=== PATIENT | female | born 1965 | race Caucasian/White ===

== ENCOUNTER 2019-06-27 10:24 | Observation (INO) ==
[2019-06-27] MEDS ORDERED: ADENOSINE IV SOLN 3 MG/ML 2 ML VIAL IV ONE (10:45)
[2019-06-27] MEDS ORDERED: SODIUM CHLORIDE 0.9% 500 ML IV SCH (10:45)
[2019-06-27 10:55] LABS: Basophils # (auto) 0.05 K/uL (0-0.2); Basophils % (auto) 0.4 %; Eosinophils # (auto) 0.48 K/uL (0-0.5); Eosinophils % (auto) 4.1 %; Hematocrit (blood only) 44.2 % (37-47); Hemoglobin 14.7 g/dL (12.0-16.0); Immature Granulocytes # (auto) 0.03 K/uL (0.00-0.02); Immature Granulocytes % (auto) 0.3 %; Lymphocytes # (auto) 3.71 K/uL (1.2-3.4); Lymphocytes % (auto) 31.9 %; Mean Corpuscular Hemoglobin 27.2 pg (25-34); Mean Corpuscular Hgb Conc 33.3 g/dL (32-36); Mean Corpuscular Volume 81.9 fL (80-100); Mean Platelet Volume 10.3 fL (7.4-10.4); Monocytes # (auto) 0.85 K/uL (0.11-0.59); Monocytes % (auto) 7.3 %; Platelet Count 322 K/uL (130-400); RDW Coefficient of Variation 15.7 % (11.5-14.5); RDW Standard Deviation 46.5 fL (36.4-46.3); White Blood Count 11.62 K/uL (4.8-10.8)
[2019-06-27] MEDS ORDERED: ADENOSINE IV SOLN 3 MG/ML 2 ML VIAL IV STA (10:56)
[2019-06-27] MEDS ORDERED: SODIUM CHLORIDE 0.9% 1000ML 1,000 ML IV ONE (11:04)
[2019-06-27 11:14] LABS: Alanine Aminotransferase 28 U/L (12-78); Albumin Level 3.9 gm/dl (3.4-5.0); Aspartate Aminotransferase 15 U/L (15-37); BUN Creatinine Ratio 11.4 (10-20); Blood Urea Nitrogen 11 mg/dl (7-18); Calcium 9.1 mg/dl (8.5-10.1); Carbon Dioxide 27 mmol/L (21-32); Chloride 105 mmol/L (98-107); Creatinine Clr Calc Pharmacy 74.3 ml/min; Est GFR (African American) 75.9; Est GFR (Non-African American) 65.5; Glucose 102 mg/dl (70-99); Potassium 3.6 mmol/L (3.5-5.1); Sodium 139 mmol/L (136-145)
--- NOTE | 2019-06-27 11:18 | XRay Report ---
XR chest 1V portable CLINICAL HISTORY: Atypical chest pain and tachycardia. Sweats. COMPARISON STUDY: August 2006 FINDINGS: The cardiac and mediastinal contours are normal. There is no evidence of focal pulmonary co nsolidation. There is no evidence of failure. No pleural effusions are visualized.[ IMPRESSION: No active disease in the chest. ACT 112: Negative or not required by law. Electronically signed by: Julián Del Rosario M.D. 06/27/2019 11:17 AM
[2019-06-27 11:19] LABS: Alkaline Phosphatase 92 U/L (45-117); Bilirubin,Total 0.4 mg/dl (0.2-1); Phosphorus 3.1 mg/dl (2.5-4.9); Total Protein 7.9 gm/dl (6.4-8.2); Troponin I < 0.015 ng/ml (0-0.045)
[2019-06-27] MEDS ORDERED: ACETAMINOPHEN 325 MG TAB PO STA (12:52)
--- NOTE | 2019-06-27 12:58 | Emergency Department Note ---
Entered by Miroslava Bernstein acting as a scribe for History of Present Illness General Chief complaint: Chest Pain Stated complaint: CHEST PAIN, LEFT ARM PAIN, SOB Time Seen by Provider: 06/27/19 10:39 Source: patient History of Present Illness Onset (ago): week(s) (a few weeks ago) Location: chest Pain Consistency: + intermittent Maximum Pain Intensity: 5 Quality: + other (squeezing, fluttering) Relieved By: + none Exacerbated By: + movement (exertion) Associated symptoms: + denies other symptoms (infectious symptoms, abdominal pain, leg swelling), + nausea/vomiting (nausea), + shortness of breath and + other (feeling flushed); no fever/chills The patient is a 53 year old female w/ no PMHx who presents to the ED w/ CC of intermittent chest pain starting a few weeks ago. The patient states that over the last few weeks she has been having these intermittent episodes of chest pain that start out as a squeezing and turn into a fluttering. She states that they last 15-20 minutes and then would go away on their own. She notes that during these times when she has checked her heart rate, it was 140-155. The patient states that today she woke up with it this morning and it would not go away. She states that she noticed with it she was short of breath. She reports that it got worse with walking. The patient complains of nausea and feeling flushed. The patient notes that she is a smoker and does drink coffee, but didnt have either this morning due to how she is feeling. The patient denies recent surgeries, fever, chills, use of supplements, infectious symptoms, abdominal pain, and leg swelling. Home Medications Home Medications Medication Instructions Recorded Confirmed Type No Known Home Medications 06/27/19 06/27/19 History Allergies Allergy/AdvReac Type Severity Reaction Status Date / Time No Known Allergies Allergy Unverified 06/27/19 11:57 Past Med/Surg History Medical History No known health problems Family History Other CHF (congestive heart failure) Social History Preferred Language: Togolese marital status: Current Living Situation: Spouse current occupational status: unemployed Feels Safe at Home: Yes Smoking Status: Current every day smoker Hx Substance Use: No Review of Systems See HPI for pertinent positives & negatives. and A total of 10 systems reviewed and were otherwise negative Physical Exam Vital Signs Vital Signs - 24 hr 06/27/19 10:36 06/27/19 10:50 06/27/19 11:00 Temperature 36.9 C Temperature Source Oral Pulse Rate 187 H 190 H 114 H Pulse Rate from SpO2 Sensor 189 H 115 H Respiratory Rate 20 22 22 Respiratory Effort / Characteristics Non-Labored Respiratory Depth Normal Blood Pressure 114/93 118/84 Blood Pressure Mean 100 99 Blood Pressure Position Sitting Pulse Oximetry 97 97 97 Oxygen Delivery Method Room Air Oxygen Flow Rate Sepsis Recent Fever Within 48 Hours No Sepsis New/Unexplained Change in Mental Status No Sepsis Action Taken by Nursing No Action Required 06/27/19 11:01 06/27/19 11:09 06/27/19 11:10 Temperature Temperature Source Pulse Rate 114 H 116 H 113 H Pulse Rate from SpO2 Sensor 116 H 115 H 105 H Respiratory Rate 24 15 19 Respiratory Effort / Characteristics Respiratory Depth Blood Pressure 111/75 Blood Pressure Mean 98 Blood Pressure Position Pulse Oximetry 97 97 98 Oxygen Delivery Method Oxygen Flow Rate Sepsis Recent Fever Within 48 Hours Sepsis New/Unexplained Change in Mental Status Sepsis Action Taken by Nursing 06/27/19 11:20 06/27/19 11:24 06/27/19 11:30 Temperature Temperature Source Pulse Rate 118 H 107 H Pulse Rate from SpO2 Sensor 120 H 108 H Respiratory Rate 21 17 Respiratory Effort / Characteristics Respiratory Depth Blood Pressure 124/94 Blood Pressure Mean 99 Blood Pressure Position Pulse Oximetry 100 99 98 Oxygen Delivery Method Room Air Oxygen Flow Rate 0 Sepsis Recent Fever Within 48 Hours Sepsis New/Unexplained Change in Mental Status Sepsis Action Taken by Nursing 06/27/19 11:31 06/27/19 11:40 06/27/19 11:50 Temperature Temperature Source Pulse Rate 109 H 110 H 105 H Pulse Rate from SpO2 Sensor 109 H 111 H 105 H Respiratory Rate 23 25 H 17 Respiratory Effort / Characteristics Respiratory Depth Blood Pressure Blood Pressure Mean Blood Pressure Position Pulse Oximetry 98 100 99 Oxygen Delivery Method Oxygen Flow Rate Sepsis Recent Fever Within 48 Hours Sepsis New/Unexplained Change in Mental Status Sepsis Action Taken by Nursing 06/27/19 12:00 06/27/19 12:01 06/27/19 12:10 Temperature Temperature Source Pulse Rate 106 H 104 H 103 H Pulse Rate from SpO2 Sensor 106 H 104 H 103 H Respiratory Rate 22 18 22 Respiratory Effort / Characteristics Respiratory Depth Blood Pressure 113/81 Blood Pressure Mean 97 Blood Pressure Position Pulse Oximetry 98 98 98 Oxygen Delivery Method Oxygen Flow Rate Sepsis Recent Fever Within 48 Hours Sepsis New/Unexplained Change in Mental Status Sepsis Action Taken by Nursing GENERAL: Well nourished, uncomfortable in appearance, non-toxic. EYE EXAM: Normal conjunctiva. PERRL, no anisocoria and EOM's grossly intact w/o pain. OROPHARYNX: Moist mucous membranes. Grossly normal dentition. NECK: Supple, no nuchal rigidity, no adenopathy, non-tender. No signs of meningismus. LUNGS: Clear to auscultation. Normal chest wall mechanics. HEART: Tachycardic and regular, no MRG. ABDOMEN: Abdomen soft, non-tender, normo-active bowel sounds, no masses, no rebound or guarding. BACK: No CVA TTP. SKIN: No rashes and no bruising. UPPER EXTREMITIES: Upper extremities are grossly normal. LOWER EXTREMITIES: No pitting edema. No calf pain. Negative Homans sign. NEURO EXAM: A&O x3, cranial nerves II-XII grossly intact, normal speech, moves all 4 extremities on command w/o issue. Course Course 1048: The patient was evaluated in room C3. A complete history and physical exam was performed. 1050: Orders were placed and the patient was placed on a rubber mill tender. 1052: 6 of adenosine was given at this time. 1056: [facility] was paged at this time. 1124: I reevaluated the patient and she is feeling better. 1153: We are re-paging [facility] cardiology. 1207: I reevaluated the patient and updated her on test results at this time. I discussed the treatment plan with her. She verbally agrees and understands. 1213: I discussed the patient's case with Dr. Freedom Escobedo Cardiology. He agrees with bringing her in and he will follow up with the patient. 1215: I discussed the patient's case with Dr. Gabriel Escobedo Hospitalist. He will evaluate the patient for further management. Administered Medications Discontinued Medications Adenosine (Adenosine) Confirm Administered Dose 18 mg IV .AcustreamMED ONE Stop: 06/27/19 10:46 Last Admin: 06/27/19 11:02 Dose: Not Given Documented by: [id number] Adenosine (Adenosine) 6 mg IV NOW STA Stop: 06/27/19 10:57 Last Admin: 06/27/19 10:52 Dose: 6 mg Documented by: [id number] Sodium Chloride (Nss) 500 mls @ 999 mls/hr IV .Q31M ROBERT Stop: 06/27/19 11:15 Last Infusion: 06/27/19 11:21 Dose: 0 mls/hr Documented by: [id number] Admin: 06/27/19 10:50 Dose: 999 mls/hr Documented by: [id number] Sodium Chloride (Nss 1000ml) 1,000 mls @ 999 mls/hr IV .Q1H1M ONE Stop: 06/27/19 12:04 Last Infusion: 06/27/19 12:23 Dose: 0 mls/hr Documented by: [id number] Admin: 06/27/19 11:22 Dose: 999 mls/hr Documented by: [id number] Critical Care Time Critical Care Time: Yes Total Critical Care Time: 35 I have personally spent 35 minutes of critical care time in the direct management of this patient. This includes bedside care, interpretation of diagnostic studies, and testing, discussion with consultants, patient, and family members, and other required patient management activities. This 35 minutes is in excess of all separately billable procedures. Medical Decision Making Differential Diagnosis Differential diagnosis includes etiologies such as premature contractions, elec trolyte abnormality, cardiac dysrhythmia, thyroid dysfunction, pulmonary embolism, infection, gastrointestinal, as well as others were entertained. Medical Records Attestation: I reviewed the patient's medical records. Home Medications Current Medication List: was personally reviewed by me Laboratory Data Attestation: I reviewed the patient's lab results. Result diagrams: 06/27/19 10:46 06/27/19 10:46 Lab Results 06/27/19 06/27/19 Range/Units 10:46 10:46 WBC 11.62 H (4.8-10.8) K/uL RBC 5.40 (4.2-5.4) M/uL Hgb 14.7 (12.0-16.0) g/dL Hct 44.2 (37-47) % MCV 81.9 (80-100) fL MCH 27.2 (25-34) pg MCHC 33.3 (32-36) g/dL RDW Std Deviation 46.5 H (36.4-46.3) fL RDW Coeff of Cuong 15.7 H (11.5-14.5) % Plt Count 322 (130-400) K/uL MPV 10.3 (7.4-10.4) fL Immature Gran % (Auto) 0.3 % Neut % (Auto) 56.0 % Lymph % (Auto) 31.9 % Carlton % (Auto) 7.3 % Eos % (Auto) 4.1 % Baso % (Auto) 0.4 % Immature Gran # (Auto) 0.03 H (0.00-0.02) K/uL Neut # (Auto) 6.50 (1.4-6.5) K/uL Lymph # (Auto) 3.71 H (1.2-3.4) K/uL Carlton # (Auto) 0.85 H (0.11-0.59) K/uL Eos # (Auto) 0.48 (0-0.5) K/uL Baso # (Auto) 0.05 (0-0.2) K/uL Sodium 139 (136-145) mmol/L Potassium 3.6 (3.5-5.1) mmol/L Chloride 105 (98-107) mmol/L Carbon Dioxide 27 (21-32) mmol/L Anion Gap 7.0 (3-11) BUN 11 (7-18) mg/dl Creatinine 0.99 (0.6-1.2) mg/dl Est Cr Clr Drug Dosing 74.3 ml/min Est GFR ( Amer) 75.9 Est GFR (Non-Af Amer) 65.5 BUN/Creatinine Ratio 11.4 (10-20) Glucose 102 H (70-99) mg/dl Calcium 9.1 (8.5-10.1) mg/dl Phosphorus 3.1 (2.5-4.9) mg/dl Magnesium 2.0 (1.8-2.4) mg/dl Total Bilirubin 0.4 (0.2-1) mg/dl AST 15 (15-37) U/L ALT 28 (12-78) U/L Alkaline Phosphatase 92 (45-117) U/L Troponin I < 0.015 (0-0.045) ng/ml Total Protein 7.9 (6.4-8.2) gm/dl Albumin 3.9 (3.4-5.0) gm/dl Globulin 4.0 (2.5-4.0) gm/dl Albumin/Globulin Ratio 1.0 (0.9-2) Imaging Data Radiologist's Impression: Radiology results as stated below per my review and the radiologist's interpretation: XR chest 1V portable CLINICAL HISTORY: Atypical chest pain and tachycardia. Sweats. COMPARISON STUDY: August 2006 FINDINGS: The cardiac and mediastinal contours are normal. There is no evidence of focal pulmonary consolidation. There is no evidence of failure. No pleural effusions are visualized.[ IMPRESSION: No active disease in the chest. ACT 112: Negative or not required by law. Electronically signed by: Julián Del Rosario M.D. 06/27/2019 11:17 AM ECG Data Attestation: I personally reviewed and interpreted this ECG as follows: Indication: + palpitations and + tachycardia Rate (beats per minute): 188 Rhythm: + SVT (likely) ECG Intervals/blocks: + Normal QRS ECG Findings: + Other (no obvious P waves, QRS is monomorphic and regular) Additional Comments: REPEAT EKG: Sinus tachycardia at a rate of 111. Normal intervals. Normal axis. Likely delta wave appearance in the anterior and lateral leads consistent with WPW. Blood Pressure Blood Pressure Findings: Elevated blood pressure Blood Pressure Disposition: further management by hospitalist [facility] Narrative The patient is a 53 year old female w/ no PMHx who presents to the ED w/ CC of intermittent chest pain starting a few weeks ago. Patient was seen and evaluated the bedside. The patient did present with palpitations elevated heart rate as well as shortness of breath and fatigue. The patient states this been ongoing for 3 to 4 weeks. Tends to resolve after 15 to 20 minutes but has been persistent this morning. Patient is tachycardic and did have a an EKG that appeared to show that the patient was monomorphic and regular. Adenosine 6 mg was administered and the patient did have a break in her tachyarrhythmia. Repeat EKG shows sinus tachycardia with a likely WPW as there is a delta wave noted in the lateral leads. I did speak with the on-call silk screen processor who agreed with current plan. Patient to be placed on telemetry and admitted for further treatment. The patient was admitted to the medicine service. Patient had no further runs of tachycardia. Impression & Plan Xtfwe-Floejioaj-Feuqh (WPW) syndrome, Tachycardia Discharge Plan Visit Data Chief Complaint: Chest Pain Stated Complaint: CHEST PAIN, LEFT ARM PAIN, SOB ED Provider: Kervin Kwon Discharge Problem: Noahc-Tdpctmevm-Udwyt (WPW) syndrome, Tachycardia Patient Disposition: Being Evaluated by Hospitalist Forms Stand Alone Forms: Call Back Authorization, My [facility] Prescriptions Prescriptions: No Action No Known Home Medications RF: 0 Referrals Referrals: Ugo Watson MD [Primary Care Provider] - The scribe's documentation has been prepared under my direction and personally reviewed by me in its entirety. I confirm that the note above accurately refle cts all work, treatment, procedures, and medical decision making performed by me.
[2019-06-27] MEDS ORDERED: LORazepam 1 MG TAB PO PRN ×2 (13:51→15:13)
--- NOTE | 2019-06-27 13:52 | History & Physical Report ---
Date of Service June 27, 2019 Assessment & Plan (1) Tachycardia: Intermittent palpitations over the last 2 months. Prolonged episode today associated with chest pressure, shortness of breath, lightheadedness, nausea. Found to be in narrow complex tachycardia upon arrival to ED. Converted to normal sinus rhythm after receiving 6 mg of adenosine. Probable paroxysmal SVT with underlying WPW. Electrolytes and TSH normal. Management of caffeine and nicotine use as discussed below. Check echocardiogram. Consult Cardiology. (2) Thnna-Tpxovoafw-Tszif (WPW) syndrome: As noted above. (3) Tobacco use: Patient smokes 1 pack/day and anticipates difficulty quitting. Will start bupropion sustained release 150 mg daily x4 days, then increase dose to 150 mg twice daily. Smoking cessation counseling. (4) Anxiety: Patient is very anxious and anticipates difficulty with cessation of nicotine and caffeine. Lorazepam as needed in the short-term, transitioning to nonpharmacologic options when able. (5) Insomnia: Will initially offer lorazepam at bedtime as needed, then try nonpharmacologic methods for sleep hygiene. (6) DVT prophylaxis: VTE prophylaxis not indicated per IMPROVE Risk Assessment Model. (7) Discharge planning issues: Anticipated discharge to home. Follow-up with Dr. Watson for Family Medicine. Follow-up with [facility]. History of Present Illness Chief Complaint: palpitations Primary Care Provider: Ugo Watson MD 53-year-old female followed by Dr. Watson for Family Medicine. She enjoys good health and has no chronic medical conditions. Experiencing palpitations for the last 2 months, occurring on most days and sometimes twice a day. The episodes typically last for about 15 or 20 minutes and previously not associated with any significant symptoms. Nothing in particular seems to precipitate the symptoms or alleviate them. This morning she had a more prolonged and severe episode of palpitations, onset around 0900. Today, symptoms were more prolonged and severe than previously and associated with chest pressure radiating to her left arm, shortness of breath, lightheadedness, nausea. Her brought her to the ED for evaluation- symptoms had persisted for greater than 1 hour by the time they arrived. Upon arrival to the ED, patient was found to be in a narrow complex tachycardia. She received adenosine 6 mg IV and converted to normal sinus rhythm with a WPW pattern. As noted above, onset of palpitations was about 2 months ago. Smokes 1 pack of cigarettes daily. Drinks several cups of coffee a day (drinks about six 12 ounce cups of 1/2 caffeinated coffee daily). Only consumes alcoholic beverages occasionally. Has not been sleeping well; typically gets 2 to 4 hours of sleep per night. Has some stress in her life. Cares for her grandchildren. Has been perimenopausal for several months. Allergies Allergy/AdvReac Type Severity Reaction Status Date / Time No Known Allergies Allergy Unverified 06/27/19 11:57 Home Medications Home Medications Medication Instructions Recorded Confirmed Type No Known Home Medications 06/27/19 06/27/19 History Past Med/Surg History Medical History Anxiety No known health problems Tobacco use Family History (Updated 06/27/19 @ 14:52 by Charles Castle MD) Mother Heart disease Diabetes Hypertension Father Accidental Sister Heart disease arrhythmia, ? CHF Sister Heart disease valvular heart disease Brother Heart disease CHF Social History Preferred Language: Guamanian Communication Ability: Effective Financial Economist Required: No Beliefs That Will Affect Care: None marital status: Current Living Situation: Spouse current occupational status: unemployed Other Information That Helps Us Care for You: No Feels Safe at Home: Yes Safety Concerns: Feels Safe At This Time Smoking Status: Current every day smoker Tobacco Type: cigarettes ; Cigarettes Per Day: 20 ; Do You Dip or Chew Tobacco: No ; Second Hand Exposure: No ; Tobacco Cessation Education Requested by Patient: No Hx Alcohol Use: Yes Alcohol type: beer, wine and hard liquor Hx Substance Use: No Review of Systems Constitutional: + weight gain; no fever and no weight loss Eyes: no worsening vision occasional flashes Ear, Nose, Mouth, Throat: + sore throat (few days ago, resolved); no nasal congestion Respiratory: + cough (occasional, nonproductive) and + dyspnea (associated with palpitations) Cardiovascular: as per Subjective / HPI Gastrointestinal: + nausea (with palpitations); no vomiting, no constipation, no diarrhea/loose stools, no blood in stools and no melena Genitourinary: no dysuria and no hematuria Musculoskeletal: + joint pain; no myalgia Integumentary: no rash and no new lesions Neurologic: + headache(s) (occasional) Endocrine: no polydipsia and no polyuria perimenopausal Hematologic / Lymphatic: no easy bleeding, no easy bruising and no lymphadenopathy Physical Exam Constitutional: WD/WN, vitals as above no acute distress Eyes: PERRL, conjunctivae normal, anicteric sclerae ENMT: external ear and nose normal, oropharynx normal Neck: trachea midline, no thyromegaly Respiratory: normal respiratory effort, lungs clear to auscultation Cardiovascular: Rate/Rhythm: regular rate Heart Sounds: no gallop, no murmur and no cardiac rub Vessels: no JVD Extremities: normal capillary refill; no calf tenderness and no edema Gastrointestinal (Abdomen): normal bowel sounds, soft, nontender, no hepatosplenomegaly Musculoskeletal: Head/Neck/Chest: neck supple Extremities: strength 5/5 throughout; no cyanosis and no clubbing Skin: no rashes, warm and dry Neurologic: PERRL, EOMI no facial palsy no dysarthria or aphasia patellar DTR's 2/2 bilat Psychiatric: Orientation: alert and oriented x 3 Affect: euthymic affect Lymphatic: no cervical lymphadenopathy Results & Data Vital Signs (Past 12 Hours) Vital Signs Temp Pulse Resp BP Pulse Ox 06/27/19 13:31 90 18 96 06/27/19 13:30 93 H 18 109/86 97 06/27/19 13:28 93 H 17 112/83 98 06/27/19 12:30 99 H 15 125/75 98 06/27/19 12:10 103 H 22 98 06/27/19 12:01 104 H 18 98 06/27/19 12:00 106 H 22 113/81 98 06/27/19 11:50 105 H 17 99 06/27/19 11:40 110 H 25 H 100 06/27/19 11:31 109 H 23 98 06/27/19 11:30 107 H 17 124/94 98 06/27/19 11:24 99 06/27/19 11:20 118 H 21 100 06/27/19 11:10 113 H 19 98 06/27/19 11:09 116 H 15 111/75 97 06/27/19 11:01 114 H 24 97 06/27/19 11:00 114 H 22 118/84 97 06/27/19 10:50 190 H 22 97 06/27/19 10:36 36.9 C 187 H 20 114/93 97 Laboratory Results Laboratory Results - last 24 hr 01/06/0406/27/19 06/27/19 10:46 10:46 10:46 WBC 11.62 H RBC 5.40 Hgb 14.7 Hct 44.2 MCV 81.9 MCH 27.2 MCHC 33.3 RDW Std Deviation 46.5 H RDW Coeff of Cuong 15.7 H Plt Count 322 MPV 10.3 Immature Gran % (Auto) 0.3 Neut % (Auto) 56.0 Lymph % (Auto) 31.9 Ashley % (Auto) 7.3 Eos % (Auto) 4.1 Baso % (Auto) 0.4 Immature Gran # (Auto) 0.03 H Neut # (Auto) 6.50 Lymph # (Auto) 3.71 H Ashley # (Auto) 0.85 H Eos # (Auto) 0.48 Baso # (Auto) 0.05 Sodium 139 Potassium 3.6 Chloride 105 Carbon Dioxide 27 Anion Gap 7.0 BUN 11 Creatinine 0.99 Est Cr Clr Drug Dosing 74.3 Est GFR ( Amer) 75.9 Est GFR (Non-Af Amer) 65.5 BUN/Creatinine Ratio 11.4 Glucose 102 H Calcium 9.1 Phosphorus 3.1 Magnesium 2.0 Total Bilirubin 0.4 AST 15 ALT 28 Alkaline Phosphatase 92 Troponin I < 0.015 Total Protein 7.9 Albumin 3.9 Globulin 4.0 Albumin/Globulin Ratio 1.0 TSH 0.790 Diagnostic Findings Portable chest x-ray reviewed by the undersigned and formally interpreted by Radiology. Normal cardiac silhouette, no infiltrates, effusions, CHF. ECG Additional Comments: EKG performed at 1056 reviewed and demonstrated sinus tachycardia at 110/minute, AL 126 mSec, delta waves consistent with WPW. Code Status & VTE Plan VTE Prophylaxis Plan VTE Prophylaxis will be ordered: No
[2019-06-27] MEDS ORDERED: ZOLPIDEM TARTRATE 5 MG TAB PO PRN (13:57)
[2019-06-27] MEDS ORDERED: ADENOSINE IV SOLN 3 MG/ML 2 ML VIAL IV PRN (13:57)
[2019-06-27] MEDS ORDERED: ACETAMINOPHEN 500 MG TAB PO PRN (15:15)
[2019-06-27] MEDS ORDERED: POTASSIUM CHLORIDE 20 MEQ TABCR PO STA (16:55)
--- NOTE | 2019-06-27 17:02 | Cardiology Consultation ---
Date of Consultation June 27, 2019 Assessment & Plan (1) PSVT (paroxysmal supraventricular tachycardia): (2) Bcfxf-Yhaylujiv-Jxley (WPW) syndrome: (3) Tobacco use: A long discussion with the patient regarding the natural history and pathophysiology as well as her twelve-lead ECG suggesting Dctrb-Rmvhkqzjg-Iiviv. Reviewed appropriate use of Valsalva maneuvers. Utilize adenosine as needed for recurrent episodes of PSVT while hospitalized. Smoking cessation advised. Add low-dose beta-david therapy, Toprol-XL 25 mg daily. She will receive 1 dose of metoprolol tartrate, 12.5 mg this evening. Electrophysiology consultation in a.m. History of Present Illness Reason for Consultation: PSVT, WPW Requesting Physician: Dr. Castle Attending Physician: Charles Castle MD History of Present Illness 53-year-old female presented emergency department with palpitations. Patient describes palpitations intermittently since [place]. Reports a sensation of "heart racing" which generally last less than 15 minutes. This morning she awoke to rapid heart rate. Blood pressure was not significantly elevated per her 's sphygmometer. She was hesitant to come to the ER, however, palpitations and symptoms worsen. In the ER she was found to be in narrow complex tachycardia at a rate of 165 bpm. She was treated with 1 dose of intravenous adenosine and subsequently converted to sinus rhythm. Admitted to the progressive care unit for observation. No recurrent dysrhythmias on telemetry. Currently, patient is resting comfortably. Denies chest pain or unusual shortness of breath. Smokes approximate 1 pack of cigarettes per day. Spends her days caring for her grandchildren. Denies personal history of dysrhythmia, congestive heart failure, diabetes, coronary disease, peripheral vascular disease, or rheumatic fever as a child. Offers no other concerns at this time. Allergies Allergy/AdvReac Type Severity Reaction Status Date / Time No Known Allergies Allergy Unverified 06/27/19 11:57 Home Medications Home Medications Medication Instructions Recorded Confirmed Type No Known Home Medications 06/27/19 06/27/19 History bupropion HCl 150 mg PO UD 30 Days #60 ea 06/28/19 Rx metoprolol succinate 25 mg PO QAM 30 Days #30 tab 06/28/19 Rx Patient History Medical History Anxiety No known health problems Tobacco use Family History Mother Heart disease Diabetes Hypertension Father Accidental Sister Heart disease arrhythmia, ? CHF Sister Heart disease valvular heart disease Brother Heart disease CHF Social History Preferred Language: Belarusian Communication Ability: Effective Aix Architect Required: No Beliefs That Will Affect Care: None marital status: Current Living Situation: Spouse current occupational status: unemployed Other Information That Helps Us Care for You: No Feels Safe at Home: Yes Safety Concerns: Feels Safe At This Time Smoking Status: Current every day smoker Tobacco Type: cigarettes ; Cigarettes Per Day: 20 ; Do You Dip or Chew Tobacco: No ; Second Hand Exposure: No ; Tobacco Cessation Education Requested by Patient: No Hx Alcohol Use: Yes Alcohol type: beer, wine and hard liquor Hx Substance Use: No Review of Systems Review of Systems: All systems reviewed & are unremarkable except as noted in HPI & below Physical Exam Constitutional: well developed, well nourished and average body habitus; no acute distress Respiratory: normal respiratory effort, lungs clear to auscultation Cardiovascular: Rate/Rhythm: regular rate and regular rhythm Heart Sounds: normal S1 and normal S2; no gallop, no murmur and no cardiac rub Palpation: normal PMI Vessels: radial pulses present; no JVD and no carotid bruit Extremities: no edema Gastrointestinal (Abdomen): Inspection/Auscultation: abdomen normal to inspection and normal bowel sounds; abdomen not distended Percussion/Palpation: abdomen soft; abdomen nontender, no guarding and abdomen not rigid Musculoskeletal: no cyanosis or clubbing, extremities motor strength 5/5 Skin: no rashes, warm and dry Neurologic: PERRL, EOMI, accommodation nl, no face palsy, no dysarthria Motor/Sensory: no tremor Results & Data Vital Signs (Past 12 Hours) Vital Signs Temp Pulse Pulse Pulse Resp BP BP 06/27/19 16:02 36.6 C 93 H 18 119/76 06/27/19 16:00 90 06/27/19 13:58 36.6 C 90 18 155/89 H 06/27/19 13:31 90 18 06/27/19 13:30 93 H 18 109/86 06/27/19 13:28 93 H 17 112/83 06/27/19 12:30 99 H 15 125/75 06/27/19 12:10 103 H 22 06/27/19 12:01 104 H 18 06/27/19 12:00 106 H 22 113/81 06/27/19 11:50 105 H 17 06/27/19 11:40 110 H 25 H 06/27/19 11:31 109 H 23 06/27/19 11:30 107 H 17 124/94 06/27/19 11:24 06/27/19 11:20 118 H 21 06/27/19 11:10 113 H 19 06/27/19 11:09 116 H 15 111/75 06/27/19 11:01 114 H 24 06/27/19 11:00 114 H 22 118/84 06/27/19 10:50 190 H 22 06/27/19 10:36 36.9 C 187 H 20 114/93 Pulse Ox 06/27/19 16:02 96 06/27/19 16:00 06/27/19 13:58 99 06/27/19 13:31 96 06/27/19 13:30 97 06/27/19 13:28 98 06/27/19 12:30 98 06/27/19 12:10 98 06/27/19 12:01 98 06/27/19 12:00 98 06/27/19 11:50 99 06/27/19 11:40 100 06/27/19 11:31 98 06/27/19 11:30 98 06/27/19 11:24 99 06/27/19 11:20 100 06/27/19 11:10 98 06/27/19 11:09 97 06/27/19 11:01 97 06/27/19 11:00 97 06/27/19 10:50 97 06/27/19 10:36 97
[2019-06-27] MEDS ORDERED: METOPROLOL TARTRATE 25 MG TAB PO STA (19:48)
--- NOTE | 2019-06-27 22:08 | Electrocardiogram Report ---
Test Reason : Blood Pressure : / mmHG Vent. Rate : 111 BPM Atrial Rate : 111 BPM P-R Int : 126 ms QRS Dur : 090 ms QT Int : 358 ms P-R-T Axes : 059 002 078 degrees QTc Int : 486 ms Poor data quality, interpretation may be adversely affected Sinus tachycardia Lupja-ehoplelpo-klgso Abnormal ECG When compared with ECG of 08-SEP-2006 21:51, Avpsr-xxalwiptw-lcube is now Present Supraventricular tachycardia is no longer Present Confirmed by Manjeet Bautista ([id number]) on 06/27/2019 10:07:42 PM Referred By: REFERRED SELF Confirmed By:Manjeet Bautista
[2019-06-28 07:46] LABS: Chol HDL Ratio 7; Cholesterol 238 mg/dl (0-200); HDL Cholesterol 35 mg/dl; LDL Cholesterol Calculated 140 mg/dl; Triglycerides 313 mg/dl (0-150); VLDL Cholesterol 63 mg/dl
[2019-06-28] MEDS ORDERED: METOPROLOL SUCC 25MG EXT REL TAB PO SCH (09:00)
[2019-06-28] MEDS ORDERED: BuPROPion SR 150 MG TABCR PO SCH ×2 (09:00)
--- NOTE | 2019-06-28 09:51 | Electrocardiogram Report ---
Test Reason : Blood Pressure : / mmHG Vent. Rate : 188 BPM Atrial Rate : 098 BPM P-R Int : 000 ms QRS Dur : 066 ms QT Int : 244 ms P-R-T Axes : 000 084 -49 degrees QTc Int : 431 ms Poor data quality, interpretation may be adversely affected Supraventricular tachycardia Abnormal ECG When compared with ECG of 08-SEP-2006 21:51, Vent. rate has increased BY [address] now depressed in Inferior leads ST now depressed in Anterolateral leads T wave inversion now evident in Inferior leads Confirmed by Manuel Rowley ([id number]) on 06/28/2019 9:51:11 AM Referred By: REFERRED SELF Confirmed By:Manuel Rowley
--- NOTE | 2019-06-28 10:09 | Electrocardiogram Report ---
Test Reason : Blood Pressure : / mmHG Vent. Rate : 084 BPM Atrial Rate : 084 BPM P-R Int : 106 ms QRS Dur : 108 ms QT Int : 434 ms P-R-T Axes : 044 -13 098 degrees QTc Int : 512 ms Normal sinus rhythm Lqnws-ovokfzksq-fespv Inferior pseudoinfarct Diffuse Nonspecific ST abnormality Abnormal ECG When compared with ECG of 27-JUN-2019 10:56, No significant change was found Confirmed by Manuel Rowley ([id number]) on 06/28/2019 10:09:32 AM Referred By: REFERRED SELF Confirmed By:Manuel Rowley
--- NOTE | 2019-06-28 10:15 | Hospitalist Progress Note ---
Date of Service June 28, 2019 Assessment & Plan (1) Tachycardia: Sonqk-Kpldavjkc-Skgjq (WPW) syndrome, PSVT (paroxysmal supraventricular tachycardia) -Intermittent palpitations over the last 2 months. Prolonged episode on presnetation associated with chest pressure, shortness of breath, lightheadedness, nausea. Found to be in narrow complex tachycardia upon arrival to ED. Converted to normal sinus rhythm after receiving 6 mg of adenosine. Probable paroxysmal SVT with underlying WPW. Electrolytes and TSH normal. -Management of caffeine and nicotine was discussed with patient on this admission -normal echocardiogram results -06/28/2019: (Patient was seen by Dr. Bridges of cardiology service. He directs that patient is ready for hospital discharge. He has given patient instructions to follow up Dr. Justina Ling who is electrophysiology heading up machine operator in the clinic and patient is to be on metoprolol succinate 25 mg daily Patient smokes 1 pack/day and anticipates difficulty quitting. Patient was started on bupropion sustained release 150 mg daily with plans of this dosing for 3 days, then increase dose to 150 mg twice daily. Patient advised to cut down on smoking Discharge medication sent electronically to [facility] [address] [place] [address] Patient is also advised to establish with a primary care doctor after hospital discharge. Patient should discuss management of anxiety with primary care doctor) (2) Knozi-Gifomzdbu-Fjiww (WPW) syndrome: management as above (3) Tobacco use: -Patient smokes 1 pack/day and anticipates difficulty quitting. -Patient smokes 1 pack/day and anticipates difficulty quitting. Patient was started on bupropion sustained release 150 mg daily with plans of this dosing for 3 days, then increase dose to 150 mg twice daily. Patient advised to cut down on smoking (4) Anxiety: -Patient is also advised to establish with a primary care doctor after hospital discharge. Patient should discuss management of anxiety with primary care doctor (5) Insomnia: patient was initially offered lorazepam at bedtime as needed, then try nonpharmacologic methods for sleep hygiene. (6) DVT prophylaxis: VTE prophylaxis not indicated per IMPROVE Risk Assessment Model. (7) Discharge planning issues: Discharge Diagnosis: Imuvu-Ddppxlhkz-Rxsaq (WPW) syndrome, PSVT (paroxysmal supraventricular tachycardia), tobacco abuse, anxiety Subjective currently asymptomatic. no palpitations. no chest pain. no abdominal pain. no nausea. no vomiting. no headache. no dizziness. cardiology service cleared patient for hospital discharge and discharge plans discussed at length with patient Review of Systems Review of Systems: All systems reviewed & are unremarkable except as noted in HPI & below Physical Exam Constitutional: comfortable Eyes: PERRL, conjunctivae normal, anicteric sclerae EOM intact bilaterally ENMT: external ear and nose normal, oropharynx normal Neck: trachea midline, no thyromegaly normal visual inspection Respiratory: normal respiratory effort, lungs clear to auscultation Cardiovascular: RRR, no murmur, no edema Gastrointestinal (Abdomen): normal bowel sounds, soft, nontender, no hepatosplenomegaly Musculoskeletal: no cyanosis or clubbing, extremities motor strength 5/5 Head/Neck/Chest: normocephalic and head atraumatic Neurologic: PERRL, EOMI, accommodation nl, no face palsy, no dysarthria CN's II-XI intact bilaterally Psychiatric: A+Ox3, euthymic affect Results & Data Vital Signs (Past 12 Hours) Vital Signs Temp Pulse Pulse Resp BP Pulse Ox 06/28/19 07:00 36.4 C L 78 16 124/81 95 06/28/19 04:00 36.5 C 84 18 111/73 95 06/27/19 23:20 36.7 C 83 18 120/81 96
--- NOTE | 2019-06-28 10:16 | Cardiology Progress Note ---
Date of Service June 28, 2019 Assessment & Plan (1) PSVT (paroxysmal supraventricular tachycardia): (2) Qkfms-Ovlfwzynv-Vlzqr (WPW) syndrome: (3) Tobacco use: Appreciate electrophysiology consultation. Continue Toprol-XL 25 mg daily. Smoking cessation advised. Outpatient electrophysiology follow-up will be arranged at [facility]. Patient may be discharged home. Thank you for allowing to participate in the care of your patient. Subjective Patient seen and examined the bedside. Feeling well from a cardiovascular perspective today. No recurrent supraventricular tachycardia on telemetry. Tolerating low-dose beta-david therapy. Resting 2D transthoracic echocardiogram within normal limits. She offers no concern/complaints at this time. Review of Systems Review of Systems: All systems reviewed & are unremarkable except as noted in HPI & below Physical Exam Constitutional: well developed, well nourished and average body habitus; no acute distress Respiratory: normal respiratory effort, lungs clear to auscultation Cardiovascular: Rate/Rhythm: regular rate and regular rhythm Heart Sounds: normal S1 and normal S2; no gallop, no murmur and no cardiac rub Palpation: normal PMI Vessels: radial pulses present; no JVD and no carotid bruit Extremities: no edema Gastrointestinal (Abdomen): Inspection/Auscultation: abdomen normal to inspection and normal bowel sounds; abdomen not distended Percussion/Palpation: abdomen soft; abdomen nontender, no guarding and abdomen not rigid Musculoskeletal: no cyanosis or clubbing, extremities motor strength 5/5 Skin: no rashes, warm and dry Neurologic: PERRL, EOMI, accommodation nl, no face palsy, no dysarthria Motor/Sensory: no tremor Results & Data Vital Signs (Past 12 Hours) Vital Signs Temp Pulse Pulse Resp BP Pulse Ox 06/28/19 10:10 36.4 C L 84 78 16 124/81 95 06/28/19 07:00 36.4 C L 78 16 124/81 95 06/28/19 04:00 36.5 C 84 18 111/73 95 06/27/19 23:20 36.7 C 83 18 120/81 96
--- NOTE | 2019-06-28 10:20 | Discharge Summary ---
Date of Service June 28, 2019 Admission HPI Per Admitting Provider 53-year-old female followed by Dr. Watson for Family Medicine. She enjoys good health and has no chronic medical conditions. Experiencing palpitations for the last 2 months, occurring on most days and sometimes twice a day. The episodes typically last for about 15 or 20 minutes and previously not associated with any significant symptoms. Nothing in particular seems to precipitate the symptoms or alleviate them. This morning she had a more prolonged and severe episode of palpitations, onset around 0900. Today, symptoms were more prolonged and severe than previously and associated with chest pressure radiating to her left arm, shortness of breath, lightheadedness, nausea. Her brought her to the ED for evaluation- symptoms had persisted for greater than 1 hour by the time they arrived. Upon arrival to the ED, patient was found to be in a narrow complex tachycardia. She received adenosine 6 mg IV and converted to normal sinus rhythm with a WPW pattern. As noted above, onset of palpitations was about 2 months ago. Smokes 1 pack of cigarettes daily. Drinks several cups of coffee a day (drinks about six 12 ounce cups of 1/2 caffeinated coffee daily). Only consumes alcoholic beverages occasionally. Has not been sleeping well; typically gets 2 to 4 hours of sleep per night. Has some stress in her life. Cares for her grandchildren. Has been perimenopausal for several months. Admission Exam Per Admitting Provider WD/WN, vitals as above no acute distress Eyes: PERRL, conjunctivae normal, anicteric sclerae ENMT: external ear and nose normal, oropharynx normal Neck: trachea midline, no thyromegaly Respiratory: normal respiratory effort, lungs clear to auscultation Cardiovascular: Rate/Rhythm: regular rate Heart Sounds: no gallop, no murmur and no cardiac rub Vessels: no JVD Extremities: normal capillary refill; no calf tenderness and no edema Gastrointestinal (Abdomen): normal bowel sounds, soft, nontender, no hepatosplenomegaly Musculoskeletal: Head/Neck/Chest: neck supple Extremities: strength 5/5 throughout; no cyanosis and no clubbing Skin: no rashes, warm and dry Neurologic: PERRL, EOMI no facial palsy no dysarthria or aphasia patellar DTR's 2/2 bilat Psychiatric: Orientation: alert and oriented x 3 Affect: euthymic affect Lymphatic: no cervical lymphadenopathy Principal Diagnosis Myedv-Wgamkdqwm-Hmcyl (WPW) syndrome, PSVT (paroxysmal supraventricular tachycardia), tobacco abuse, anxiety Discharge Exam Constitutional comfortable Eyes PERRL, conjunctivae normal, anicteric sclerae EOM intact bilaterally ENMT external ear and nose normal, oropharynx normal Neck trachea midline, no thyromegaly normal visual inspection Respiratory normal respiratory effort, lungs clear to auscultation Cardiovascular RRR, no murmur, no edema Gastrointestinal (Abdomen) normal bowel sounds, soft, nontender, no hepatosplenomegaly Musculoskeletal no cyanosis or clubbing, extremities motor strength 5/5 Head/Neck/Chest: normocephalic and head atraumatic Neurologic PERRL, EOMI, accommodation nl, no face palsy, no dysarthria CN's II-XI intact bilaterally Psychiatric A+Ox3, euthymic affect Discharge Data Allergies Allergy/AdvReac Type Severity Reaction Status Date / Time No Known Allergies Allergy Unverified 06/27/19 11:57 Consultations 06/27/19 12:16 ED Decision to Admit Stat 06/27/19 13:57 Consult Cardiology Routine Hospital Course (1) Tachycardia: Kijbx-Drgnaebew-Aajtx (WPW) syndrome, PSVT (paroxysmal supraventricular tachycardia) -Intermittent palpitations over the last 2 months. Prolonged episode on presnetation associated with chest pressure, shortness of breath, lightheadedness, nausea. Found to be in narrow complex tachycardia upon arrival to ED. Converted to normal sinus rhythm after receiving 6 mg of adenosine. Probable paroxysmal SVT with underlying WPW. Electrolytes and TSH normal. -Management of caffeine and nicotine was discussed with patient on this admission -normal echocardiogram results -06/28/2019: (Patient was seen by Dr. Bridges of cardiology service. He directs that patient is ready for hospital discharge. He has given patient instructions to follow up Dr. Justina Ling who is electrophysiology senior j2ee developer in the clinic and patient is to be on metoprolol succinate 25 mg daily Patient smokes 1 pack/day and anticipates difficulty quitting. Patient was s tarted on bupropion sustained release 150 mg daily with plans of this dosing for 3 days, then increase dose to 150 mg twice daily. Patient advised to cut down on smoking Discharge medication sent electronically to [facility] [address] [place] [address] Patient is also advised to establish with a primary care doctor after hospital discharge. Patient should discuss management of anxiety with primary care doctor) (2) Nukbx-Luylancjc-Xrsju (WPW) syndrome: management as above (3) Tobacco use: -Patient smokes 1 pack/day and anticipates difficulty quitting. -Patient smokes 1 pack/day and anticipates difficulty quitting. Patient was started on bupropion sustained release 150 mg daily with plans of this dosing for 3 days, then increase dose to 150 mg twice daily. Patient advised to cut down on smoking (4) Anxiety: -Patient is also advised to establish with a primary care doctor after hospital discharge. Patient should discuss management of anxiety with primary care doctor (5) Insomnia: patient was initially offered lorazepam at bedtime as needed, then try nonpharmacologic methods for sleep hygiene. (6) DVT prophylaxis: VTE prophylaxis not indicated per IMPROVE Risk Assessment Model. (7) Discharge planning issues: Discharge Diagnosis: Umusx-Jemmjpxdp-Nzfxw (WPW) syndrome, PSVT (paroxysmal supraventricular tachycardia), tobacco abuse, anxiety Total Time Total Time Spent Total Time Spent (In Minutes): 40 minutes Total Time Includes: Examination of the Patient, Discharge Planning, Medication Reconciliation and Communication With Other Providers Discharge Plan Discharge Items Patient Disposition: Home - Self-Care Reason For Visit: PAROXYSMAL SUPRAVENTRICULAR TACHYCARDIA Discharge Diagnosis: Xevfy-Pnwxcwtms-Irmfy (WPW) syndrome, PSVT (paroxysmal supraventricular tachycardia), tobacco abuse, anxiety Condition on Discharge: Good Activity: Resume your previous activity Non-emergency contact: Primary Care Provider and Bookkeeper Assistant Call non-emergency contact if: you have any medication questions Follow-up/Referrals: Ugo Watson MD [Primary Care Provider] - Diet: Heart Healthy Addtl Attending Provider Instructions: Patient was seen by Dr. Bridges of cardiology service. He directs that patient is ready for hospital discharge. He has given patient instructions to follow up Dr. Justina Ling who is electrophysiology senior j2ee developer in the clinic and patient is to be on metoprolol succinate 25 mg daily Patient smokes 1 pack/day and anticipates difficulty quitting. Patient was started on bupropion sustained release 150 mg daily with plans of this dosing for 3 days, then increase dose to 150 mg twice daily. Patient advised to cut down on smoking Discharge medication sent electronically to [facility] [address] [place] [address] Patient is also advised to establish with a primary care doctor after hospital discharge. Patient should discuss management of anxiety with primary care doctor Pending Studies at Discharge: No Studies:: normal echocardiogram results on 06/28/2019 Visit Report Forms: Smoking Cessation Stand-Alone Forms: Call Back Authorization, My [facility], Smoking Cessation Medications and DC Order Prescriptions: New bupropion HCl 150 mg tablet sustained-release 12 hr 150 mg PO UD 30 Days Qty: 60 RF: 0 metoprolol succinate 25 mg Tablet Extended Release 24 Hr 25 mg PO QAM 30 Days Qty: 30 RF: 0 No Action No Known Home Medications RF: 0 Discharge Orders: Discharge Order (Routine); Ordered 06/28/19 Ordered By: Jordan Norman/Other Patient Handouts: Metoprolol Succinate Hydrochlorothiazide Oral tablet extended-release, Bupropion Hydrochloride Oral tablet extended release 24 hour ... Admission Data Admit Date/Time: 06/27/19 12:20 Attending Provider: Jordan Barbosa Admit Provider: Charles Castle Primary Care Provider: Ugo Watson Other Providers: Charles Castle ; Shawn Bridges
--- NOTE | 2019-06-28 12:47 | Cardiology Consultation ---
Date of Consultation June 28, 2019 Assessment & Plan (1) PSVT (paroxysmal supraventricular tachycardia): (2) Cpmge-Gkdzixnla-Zumsh (WPW) syndrome: (3) Tobacco use: Encouraged smoking cessation with the patient today History of Present Illness Reason for Consultation: SVT Requesting Physician: Dr. Bridges Attending Physician: Jordan Barbosa MD Referring Physician: Dr. Bridges History of Present Illness Pt has been having palpitations for the past 2 months, associated with SOB, duration typically 15-20 minutes, sudden onset, frequency has been increasing now to a few times a week. Pt had a really bad long lasting episode the day of admission. She was found to be in SVT broke with adenosine. EP was consulted for further recommendations. Allergies Allergy/AdvReac Type Severity Reaction Status Date / Time No Known Allergies Allergy Unverified 06/27/19 11:57 Home Medications Home Medications Medication Instructions Recorded Confirmed Type No Known Home Medications 06/27/19 06/27/19 History bupropion HCl 150 mg PO UD 30 Days #60 ea 06/28/19 Rx metoprolol succinate 25 mg PO QAM 30 Days #30 tab 06/28/19 Rx Patient History Medical History Anxiety No known health problems Tobacco use Family History Mother Heart disease Diabetes Hypertension Father Accidental Sister Heart disease arrhythmia, ? CHF Sister Heart disease valvular heart disease Brother Heart disease CHF Social History Preferred Language: Lao Communication Ability: Effective Screen Making Technician Required: No Beliefs That Will Affect Care: None marital status: Current Living Situation: Spouse current occupational status: unemployed Feels Safe at Home: Yes Smoking Status: Current every day smoker Tobacco Type: cigarettes ; Cigarettes Per Day: 20 ; Second Hand Exposure: No ; Hx Alcohol Use: Yes Alcohol type: beer, wine and hard liquor Hx Substance Use: No Review of Systems Review of Systems: All systems reviewed & are unremarkable except as noted in HPI & below Physical Exam Physical Exam: vital signs reviewed aaox3, NAD NC/AT EOMI Supple No JVD Nrl S1/S2, No murmur CTA b/l no w/r/r soft nt/nd no LE edema b/l skin intact no focal deficits normal thought content Results & Data Vital Signs (Past 12 Hours) Vital Signs Temp Pulse Pulse Resp BP Pulse Ox 06/28/19 10:10 36.4 C L 84 78 16 124/81 95 06/28/19 07:00 36.4 C L 78 16 124/81 95 06/28/19 04:00 36.5 C 84 18 111/73 95 Laboratory Results Abnormal Lab Results 06/27/19 06/28/19 10:46 07:00 Triglycerides 313 H Cholesterol 238 H LDL Cholesterol, Calc 140 VLDL Cholesterol, Calc 63 HDL Cholesterol 35 Cholesterol/HDL Ratio 7 TSH 0.790 Diagnostic Findings ECG: SR with delta wave noted: positive in Lead I and negative in Lead II suggesting MCV or venous anomaly Medications Administered Medications reviewed ECG Additional Comments: ECG: SR with delta wave noted: positive in Lead I and negative in Lead II suggesting MCV or venous anomaly
== END 2019-06-28 11:03 | disposition home or self-care (01) ==
LOC: ED 10:24 → 2S 10:24 → SUATTDRO 12:20 → 2S 13:40

== ENCOUNTER 2019-07-18 21:00 | Inpatient (IN) ==
[2019-07-18] MEDS ORDERED: DiphenhydrAMINE HCL 50 MG/ML VIAL IV STA (21:37)
[2019-07-18] MEDS ORDERED: DEXAMETHASONE **PF** INJ 10 MG/ML VIAL IV ONE (21:37)
[2019-07-18] MEDS ORDERED: FAMOTIDINE 20MG/5ML IV PUSH IV STA (21:37)
[2019-07-18] MEDS ORDERED: SODIUM CHLORIDE 0.9% 1000ML 1,000 ML IV SCH (21:45)
--- NOTE | 2019-07-18 21:50 | XRay Report ---
XR chest 1V portable HISTORY: Dyspnea COMPARISON: Chest 06/27/2019. FINDINGS: The lungs are clear. Cardiac silhouette is normal in size. No pleural effusions. No pneumot horax. IMPRESSION: No acute process. ACT 112: Negative or not required by law. Electronically signed by: John Mtz M.D. 07/18/2019 9:49 PM
[2019-07-18 22:06] LABS: Basophils # (auto) 0.01 K/uL (0-0.2); Basophils % (auto) 0.1 %; Eosinophils # (auto) 0.03 K/uL (0-0.5); Eosinophils % (auto) 0.2 %; Hematocrit (blood only) 45.9 % (37-47); Hemoglobin 15.8 g/dL (12.0-16.0); Immature Granulocytes # (auto) 0.05 K/uL (0.00-0.02); Immature Granulocytes % (auto) 0.4 %; Lymphocytes # (auto) 1.55 K/uL (1.2-3.4); Mean Corpuscular Hemoglobin 27.8 pg (25-34); Mean Corpuscular Hgb Conc 34.4 g/dL (32-36); Mean Corpuscular Volume 80.8 fL (80-100); Mean Platelet Volume 10.3 fL (7.4-10.4); Monocytes # (auto) 0.56 K/uL (0.11-0.59); Neutrophils # (auto) 11.87 K/uL (1.4-6.5); Neutrophils % (auto) 84.3 %; Platelet Count 255 K/uL (130-400); RDW Coefficient of Variation 16.6 % (11.5-14.5); RDW Standard Deviation 48.9 fL (36.4-46.3); Red Blood Count 5.68 M/uL (4.2-5.4); White Blood Count 14.07 K/uL (4.8-10.8)
--- NOTE | 2019-07-18 22:07 | Emergency Department Note ---
History of Present Illness General Chief complaint: Shortness of Breath/Dyspnea Stated complaint: HIVES, SWOLLEN FEET, WEAK, SOB History of Present Illness Maximum Pain Intensity: 6 This 53-year-old presents to the ER complaining of hives, dyspnea and feeling weak Location: Generalized Quality: Weak Severity: Moderate Duration: Today Timing: Today Context: Symptoms got worse and patient came in Modifying factors: better with nothing; worse with activity Patient denies new foods soaps or detergents. No change in medications recently. 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 Patient states that she has been trying to cut back on her smoking. She has been feeling more short of breath. No recent travel. Patient denies fevers, chest pain, abdominal pain, flulike illness. She states she checked her blood pressure and was low today at home. Home Medications Home Medications Medication Instructions Recorded Confirmed Type metoprolol succinate 25 mg PO QAM 30 Days #30 tab 06/28/19 07/18/19 Rx bupropion HCl 300 mg 24 hr tablet, 300 mg PO QAM #30 tab 07/05/19 07/18/19 Rx extended release lorazepam 0.5 mg tablet 0.5 mg PO TID PRN #60 tab 07/05/19 07/18/19 Rx mupirocin 2 % topical ointment 1 appln TOP TID #30 gm 07/05/19 07/18/19 Rx Allergies Allergy/AdvReac Type Severity Reaction Status Date / Time No Known Allergies Allergy Verified 07/18/19 21:24 Past Med/Surg History Medical History Anxiety No known health problems Tobacco use Surgical History No pertinent past surgical history Family History Mother Heart disease Diabetes Hypertension Myocardial infarction Father Accidental Sister Heart disease arrhythmia, ? 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 Beliefs That Will Affect Care: None marital status: Current Living Situation: Spouse current occupational status: unemployed Feels Safe at Home: Yes Smoking Status: Current every day smoker Tobacco Type: cigarettes ; Cigarettes Per Day: 20 ; Second Hand Exposure: No ; Hx Alcohol Use: Yes Alcohol type: beer, wine and hard liquor Hx Substance Use: No Childhood Exposure to Second-Hand Smoke: Yes Dental Care, Regularly: No Physical Activity Frequency: Does not Exercise Seatbelt Use: always Sunscreen Use: No Review of Systems A total of 10 systems reviewed and were otherwise negative Physical Exam Vital Signs Vital Signs - 24 hr 07/18/19 21:02 07/18/19 21:40 07/18/19 21:43 Temperature 36.3 C L Temperature Source Oral Pulse Rate 127 H 109 H Pulse Rate [Finger] Pulse Rate from SpO2 Sensor 111 H Respiratory Rate 22 19 Respiratory Effort / Characteristics Non-Labored Spontaneous Respiratory Depth Normal Respiratory Pattern Regular Blood Pressure 116/79 92/74 L Blood Pressure [Right Arm] Blood Pressure Mean 91 86 Blood Pressure Mean [Right Arm] Pulse Oximetry 99 98 97 Oxygen Delivery Method Room Air Room Air Sepsis Recent Fever Within 48 Hours No Sepsis Action Taken by Nursing No Action Required 07/18/19 21:48 07/18/19 22:00 07/18/19 22:01 Temperature Temperature Source Pulse Rate 111 H 107 H 103 H Pulse Rate [Finger] Pulse Rate from SpO2 Sensor 113 H 107 H 103 H Respiratory Rate 26 H 21 21 Respiratory Effort / Characteristics Respiratory Depth Respiratory Pattern Blood Pressure 103/78 Blood Pressure [Right Arm] Blood Pressure Mean 84 Blood Pressure Mean [Right Arm] Pulse Oximetry 97 98 98 Oxygen Delivery Method Room Air Room Air Room Air Sepsis Recent Fever Within 48 Hours Sepsis Action Taken by Nursing 07/18/19 22:41 07/18/19 22:42 07/18/19 22:43 Temperature Temperature Source Pulse Rate 95 H 91 H 95 H Pulse Rate [Finger] Pulse Rate from SpO2 Sensor 91 H 95 H Respiratory Rate 20 20 Respiratory Effort / Characteristics Respiratory Depth Respiratory Pattern Blood Pressure 102/73 Blood Pressure [Right Arm] Blood Pressure Mean 85 Blood Pressure Mean [Right Arm] Pulse Oximetry 95 96 Oxygen Delivery Method Sepsis Recent Fever Within 48 Hours Sepsis Action Taken by Nursing 07/18/19 22:44 07/18/19 23:29 Temperature Temperature Source Pulse Rate 94 H Pulse Rate [Finger] 99 H Pulse Rate from SpO2 Sensor 93 H Respiratory Rate 17 20 Respiratory Effort / Characteristics Non-Labored Spontaneous Respiratory Depth Normal Respiratory Pattern Blood Pressure Blood Pressure [Right Arm] 125/76 Blood Pressure Mean Blood Pressure Mean [Right Arm] 92 Pulse Oximetry 95 96 Oxygen Delivery Method Room Air Sepsis Recent Fever Within 48 Hours Sepsis Action Taken by Nursing VITALS: Vitals are noted on the nurse's note and reviewed by myself. Vital signs stable. GENERAL: Anxious appearing female, in no acute distress, nondiaphoretic, well-de veloped well-nourished. SKIN: Capillary reflex less than 2 seconds. Diffuse erythematous blanchable dermatitis most consistent with hives HEENT: Normocephalic. PERRLA. EOMI. Nares patent. Mucous membranes moist. Neck is supple without nuchal rigidity. HEART: Tachycardic rate and rhythm LUNGS: Clear to auscultation bilaterally without wheezes, rales or rhonchi. No retractions or accessory muscle use. ABDOMEN: Positive bowel sounds x 4. Normal tympanic percussion. Soft, nontender, without masses or organomegaly. White sign negative. No guarding or rebound tenderness. MUSCULOSKELETAL: No gross musculoskeletal defects. NEURO: Patient was alert and oriented to person place and time. No focal neurological deficits. Course Administered Medications Ioversol (Optiray 320 125ml) 125 ml IV ONCE PRN PRN Reason: Interaction Checking Stop: 07/22/19 23:07 Last Admin: 07/18/19 23:09 Dose: 120 ml Documented by: [id number] Discontinued Medications Dexamethasone Sodium Phosphate (Decadron Pf) 10 mg IV NOW ONE Stop: 07/18/19 21:38 Last Admin: 07/18/19 21:57 Dose: 10 mg Documented by: [id number] Diphenhydramine HCl (Benadryl) 50 mg IV NOW STA Stop: 07/18/19 21:38 Last Admin: 07/18/19 21:57 Dose: 50 mg Documented by: [id number] Famotidine (Pepcid 20mg Iv Push) 20 mg IV ONE STA Stop: 07/18/19 21:38 Last Admin: 07/18/19 21:57 Dose: 20 mg Documented by: [id number] Sodium Chloride (Nss 1000ml) 1,000 mls @ 999 mls/hr IV .Q1H1M ROBERT Stop: 07/18/19 22:45 Last Infusion: 07/18/19 22:59 Dose: 0 mls/hr Documented by: [id number] Admin: 07/18/19 21:57 Dose: 999 mls/hr Documented by: [id number] Medical Decision Making Medical Records Attestation: I reviewed the patient's medical records. Home Medications Current Medication List: was personally reviewed by me Laboratory Data Attestation: I reviewed the patient's lab results. Result diagrams: 07/18/19 21:48 07/18/19 21:48 Lab Results 07/18/19 07/18/19 07/18/19 Range/Units 21:48 21:48 21:48 WBC 14.07 H (4.8-10.8) K/uL RBC 5.68 H (4.2-5.4) M/uL Hgb 15.8 (12.0-16.0) g/dL Hct 45.9 (37-47) % MCV 80.8 (80-100) fL MCH 27.8 (25-34) pg MCHC 34.4 (32-36) g/dL RDW Std Deviation 48.9 H (36.4-46.3) fL RDW Coeff of Cuong 16.6 H (11.5-14.5) % Plt Count 255 (130-400) K/uL MPV 10.3 (7.4-10.4) fL Immature Gran % (Auto) 0.4 % Neut % (Auto) 84.3 % Lymph % (Auto) 11.0 % Teller % (Auto) 4.0 % Eos % (Auto) 0.2 % Baso % (Auto) 0.1 % Immature Gran # (Auto) 0.05 H (0.00-0.02) K/uL Neut # (Auto) 11.87 H (1.4-6.5) K/uL Lymph # (Auto) 1.55 (1.2-3.4) K/uL Teller # (Auto) 0.56 (0.11-0.59) K/uL Eos # (Auto) 0.03 (0-0.5) K/uL Baso # (Auto) 0.01 (0-0.2) K/uL PT 9.9 (9.0-12.0) Seconds INR 1.0 (0.9-1.1) APTT 22.9 (21.0-31.0) Seconds PTT Ratio 0.8 D-Dimer > 34738 H* (0-500) ug/L FEU Sodium 137 (136-145) mmol/L Potassium 3.9 (3.5-5.1) mmol/L Chloride 105 (98-107) mmol/L Carbon Dioxide 23 (21-32) mmol/L Anion Gap 9.0 (3-11) BUN 16 (7-18) mg/dl Creatinine 1.05 (0.6-1.2) mg/dl Est Cr Clr Drug Dosing 70.1 ml/min Est GFR ( Amer) 70.7 Est GFR (Non-Af Amer) 61.0 BUN/Creatinine Ratio 15.4 (10-20) Glucose 120 H (70-99) mg/dl Calcium 9.1 (8.5-10.1) mg/dl Magnesium 1.8 (1.8-2.4) mg/dl Total Bilirubin 0.8 (0.2-1) mg/dl AST 12 L (15-37) U/L ALT 22 (12-78) U/L Alkaline Phosphatase 94 (45-117) U/L Troponin I < 0.015 (0-0.045) ng/ml Total Protein 7.8 (6.4-8.2) gm/dl Albumin 3.9 (3.4-5.0) gm/dl Globulin 3.9 (2.5-4.0) gm/dl Albumin/Globulin Ratio 1.0 (0.9-2) HCG, Qual (Negative) Urine Color Urine Appearance (Clear) Urine pH (4.5-7.5) Ur Specific [place] (1.000-1.030) Urine Protein (Negative) Urine Glucose (UA) (Negative) Urine Ketones (Negative) Urine Blood (Negative) Urine Nitrite (Negative) Urine Bilirubin (Negative) Urine Urobilinogen (Negative) Ur Leukocyte Esterase (Negative) Urine WBC (Auto) (0-5) /hpf Urine RBC (Auto) (0-4) /hpf U Hyaline Cast (Auto) (0-5) /lpf U Epithel Cells (Auto) (0-5) /lpf Urine Bacteria (Auto) (Negative) Urine Mucus (None Prsent) 07/18/19 07/18/19 Range/Units 21:48 23:30 WBC (4.8-10.8) K/uL RBC (4.2-5.4) M/uL Hgb (12.0-16.0) g/dL Hct (37-47) % MCV (80-100) fL MCH (25-34) pg MCHC (32-36) g/dL RDW Std Deviation (36.4-46.3) fL RDW Coeff of Cuong (11.5-14.5) % Plt Count (130-400) K/uL MPV (7.4-10.4) fL Immature Gran % (Auto) % Neut % (Auto) % Lymph % (Auto) % Teller % (Auto) % Eos % (Auto) % Baso % (Auto) % Immature Gran # (Auto) (0.00-0.02) K/uL Neut # (Auto) (1.4-6.5) K/uL Lymph # (Auto) (1.2-3.4) K/uL Teller # (Auto) (0.11-0.59) K/uL Eos # (Auto) (0-0.5) K/uL Baso # (Auto) (0-0.2) K/uL PT (9.0-12.0) Seconds INR (0.9-1.1) APTT (21.0-31.0) Seconds PTT Ratio D-Dimer (0-500) ug/L FEU Sodium (136-145) mmol/L Potassium (3.5-5.1) mmol/L Chloride (98-107) mmol/L Carbon Dioxide (21-32) mmol/L Anion Gap (3-11) BUN (7-18) mg/dl Creatinine (0.6-1.2) mg/dl Est Cr Clr Drug Dosing ml/min Est GFR ( Amer) Est GFR (Non-Af Amer) BUN/Creatinine Ratio (10-20) Glucose (70-99) mg/dl Calcium (8.5-10.1) mg/dl Magnesium (1.8-2.4) mg/dl Total Bilirubin (0.2-1) mg/dl AST (15-37) U/L ALT (12-78) U/L Alkaline Phosphatase (45-117) U/L Troponin I (0-0.045) ng/ml Total Protein (6.4-8.2) gm/dl Albumin (3.4-5.0) gm/dl Globulin (2.5-4.0) gm/dl Albumin/Globulin Ratio (0.9-2) HCG, Qual Negative (Negative) Urine Color Yellow Urine Appearance Cloudy A (Clear) Urine pH 5.0 (4.5-7.5) Ur Specific [place] > 1.045 H (1.000-1.030) Urine Protein Negative (Negative) Urine Glucose (UA) Negative (Negative) Urine Ketones Negative (Negative) Urine Blood Negative (Negative) Urine Nitrite Negative (Negative) Urine Bilirubin Negative (Negative) Urine Urobilinogen Negative (Negative) Ur Leukocyte Esterase Negative (Negative) Urine WBC (Auto) 5-10 H (0-5) /hpf Urine RBC (Auto) 0-4 (0-4) /hpf U Hyaline Cast (Auto) >30 H (0-5) /lpf U Epithel Cells (Auto) >30 H (0-5) /lpf Urine Bacteria (Auto) 1+ H (Negative) Urine Mucus Present A (None Prsent) Imaging Data Attestation: I personally reviewed and interpreted this imaging study as follows: MDM Narrative Prior records/ancillary studies reviewed. Triage Nursing notes reviewed. Additional history obtained from the family. The patient's history was concerning for respiratory difficulties. Differential diagnosis: Etiologies such as infections, reactive airway disease, pneumonia, pneumothorax, COPD, CHF, cardiac ischemia, pulmonary embolism, musculoskeletal, gastrointestinal, as well as others were entertained. Physical examination: As above. ER treatment provided: An order was placed for continuous cardiac monitoring. The monitor shows a rate of 60-120 with a normal sinus rhythm. IV fluids, Decadron, Benadryl, Pepcid, Eliquis On reassessment the patient felt better. Diagnostic interpretation by me: The electrocardiogram was negative for acute ischemic or pathologic change. Normal sinus, normal intervals, no acute ST-T wave changes. Impression sinus tachycardia interpreted by myself EKG ordered for dyspnea I think arrhythmia is unlikely. EKG shows normal sinus rhythm with no interval abnormalities such as QT prolongation or WPW. There are no findings to suggest Brugada syndrome. Cardiac monitoring in the emergency department reveals no tac hycardic or bradycardic dysrhythmia. Hypertrophic cardiomyopathy was considered but there are no clear historical elements pointing toward this. EKG is not suggestive. The QRS voltage is not extremely large and there are no suggestive Q waves. The labs revealed elevated d-dimer. Negative troponin Leukocytosis Imaging studies: cc: ~ XR chest 1V portable HISTORY: Dyspnea COMPARISON: Chest 06/27/2019. FINDINGS: The lungs are clear. Cardiac silhouette is normal in size. No pleural effusions. No pneumothorax. IMPRESSION: No acute process. ACT 112: Negative or not required by law. Electronically signed by: John Mtz M.D. 07/18/2019 9:49 PM Dictated: [id number] Transcribed: [id number] CTA CHEST: The pulmonary arterial tree is well-opacified with contrast. There is a left upper lobe pulmonary artery branch which demonstrates pulmonary embolism. The remainder is within normal limits. The aorta is nondilated. There is no aneurysm or dissection. No atherosclerotic changes are seen. The heart and mediastinum are normal. The lungs demonstrate mild emphysematous changes in the upper lobes bilaterally. No acute or specific joint or consolidation is seen. Is a trace amount of dependent subsegmental atelectasis. Radiologist: Freedom Raines MD PESI Score Age: 53 Male gender: 0 History of cancer: 0 Heart failure: 0 Chronic lung disease: 10 Pulse =110/min: 20 Systolic blood pressure <100 mmH Respiratory rate =30/min: 0 Temperature <36 Celcius: 0 Altered mental status: 0 Arterial oxygen saturation <90 percent: 0 Total: 112 Class I Low risk <66 Class II 66 to 85 Class III High risk 86 to 105 Class IV 106 to 125 Class V >125 Consultation: A consultation was placed with the, Dr Dawkins, hospitalist. The case was discussed and diagnostics were reviewed. The patient was evaluated in the ER for further treatment. This appears to be consistent with PE and urticaria. Hypercoagulable work-up was ordered. Patient's PESI score is a class IV. Medicine was consulted and we will start the patient on Eliquis. Patient is agreeable treatment plan of admission. By the evaluation outlined above emergent etiologies such as CHF, cardiac ischemia, reactive airway disease, pneumonia, pneumothorax, musculoskeletal, serious bacterial infections, as well as others were deemed relatively unlikely. The pt informed about the findings as listed above. All questions were answered and pleased with the treatment. The chart was completed utilizing [employer] voice recognition software. Grammatical errors, random word insertions, pronoun errors, and incomplete sentences are an occassional consequence of this system due to software l imitations, ambient noise, and hardware issues. Any formal questions or concerns about the content, text, or information contained within the body of this dictation should be directly addressed to the physician rehab assistant for clarification. Impression & Plan Pulmonary embolism, Urticaria Discharge Plan Visit Data Chief Complaint: Shortness of Breath/Dyspnea Stated Complaint: HIVES, SWOLLEN FEET, WEAK, SOB Other Complaint: Rash ED Provider: Shawn Field ED Midlevel Provider: Elba Leonard Discharge Problem: Pulmonary embolism, Urticaria Patient Disposition: Being Evaluated by Hospitalist Condition: Good Forms Stand Alone Forms: [employer] Prescriptions Prescriptions: No Action mupirocin 2 % ointment 1 appln TOP TID Qty: 30 RF: 3 bupropion HCl [Wellbutrin XL] 300 mg tablet extended release 24 hr 300 mg PO QAM Qty: 30 RF: 3 lorazepam 0.5 mg tablet 0.5 mg PO TID PRN (Reason: anxiety) Qty: 60 RF: 0 metoprolol succinate 25 mg Tablet Extended Release 24 Hr 25 mg PO QAM 30 Days Qty: 30 RF: 0 Referrals Referrals: Carolina Prado CRNP, MS, [employer] CUT OFF SAW OPERATOR-C [Primary Care Provider] - Discharge Problem: Pulmonary embolism Qualifiers: Pulmonary embolism type: single subsegmental (without acute cor pulmonale) Qualified Code(s): I26.93 - Single subsegmental pulmonary embolism without acute cor pulmonale
[2019-07-18 22:24] LABS: Alanine Aminotransferase 22 U/L (12-78); Albumin Level 3.9 gm/dl (3.4-5.0); Aspartate Aminotransferase 12 U/L (15-37); BUN Creatinine Ratio 15.4 (10-20); Blood Urea Nitrogen 16 mg/dl (7-18); Calcium 9.1 mg/dl (8.5-10.1); Carbon Dioxide 23 mmol/L (21-32); Chloride 105 mmol/L (98-107); Creatinine Clr Calc Pharmacy 70.1 ml/min; Est GFR (African American) 70.7; Glucose 120 mg/dl (70-99); Magnesium 1.8 mg/dl (1.8-2.4); Potassium 3.9 mmol/L (3.5-5.1); Sodium 137 mmol/L (136-145)
[2019-07-18 22:29] LABS: Alkaline Phosphatase 94 U/L (45-117); Bilirubin,Total 0.8 mg/dl (0.2-1); Globulin 3.9 gm/dl (2.5-4.0); Pregnancy Test, Serum Negative (Negative); Total Protein 7.8 gm/dl (6.4-8.2); Troponin I < 0.015 ng/ml (0-0.045)
--- NOTE | 2019-07-18 22:44 | Ultrasound Report ---
BILATERAL LOWER EXTREMITY VENOUS DOPPLER HISTORY: Leg swelling. Dyspnea, swelling COMPARISON STUDY: None. FINDINGS: There is normal compressibility, flow, and augmentation within the bilateral lower extremit y deep venous systems. IMPRESSION: No DVT within the right or left lower extremity. ACT 112: Negative or not required by law. Electronically signed by: John Mtz M.D. 07/18/2019 10:43 PM
[2019-07-18 22:47] LABS: Partial Thromboplastin Ratio 0.8; Partial Thromboplastin Time 22.9 Seconds (21.0-31.0); Prothrombin Time 9.9 Seconds (9.0-12.0)
[2019-07-18 22:52] LABS: D Dimer > 35200 ug/L FEU (0-500)
[2019-07-18] MEDS ORDERED: OPTIRAY 320 125ml IV PRN (23:08)
[2019-07-18 23:41] LABS: Appearance Urine Cloudy (Clear); Bilirubin Urine Negative (Negative); Blood Urine Negative (Negative); Color Urine Yellow; Epithelial Cell Urine Auto >30 /lpf (0-5); Glucose Urine UA Negative (Negative); Ketones Urine Negative (Negative); Leukocyte Esterase Urine Negative (Negative); Nitrite Urine Negative (Negative); Protein Urine Negative (Negative); Specific Gravity Urine > 1.045 (1.000-1.030); Urobilinogen Urine Negative (Negative)
[2019-07-18 23:56] LABS: Mucus Urine Present (None Prsent)
[2019-07-18 23:57] LABS: Cast Urine Automated >30 /lpf (0-5); RBC Urine Automated 0-4 /hpf (0-4)
[2019-07-18 23:58] LABS: Bacteria Urine Automated 1+ (Negative)
[2019-07-19] MEDS ORDERED: APIXABAN 2.5 MG TAB PO STA (00:06)
--- NOTE | 2019-07-19 01:02 | History & Physical Report ---
Date of Service July 19, 2019 Assessment & Plan (1) Pulmonary embolism: OBS tele Left upper lobe Eliquis started in the ED will be continued Not requiring oxygen at this time. Check ambulatory POX in am. (2) Urticaria: Resolved following Dexamethasone and Benadryl in the ED. (3) Anxiety: Continue prn lorazepam. 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 Continue metoprolol History of Present Illness 53 y/o female presented to the ED due to an outbreak of hives in her lower extremities. As part of the questioning, she reported that she had been feeling SOB and had an episode of positional chest pain when laying of her left side. She was found to have an elevated and subsequently MICHAELA PE. No F/C, cough, N/V/D, recent travel, hx of DVT/PE, or family history of blood clots. Primary Care Provider: KYLE Jeffrey, MS, [facility] [facility] Allergies Allergy/AdvReac Type Severity Reaction Status Date / Time No Known Allergies Allergy Verified 07/18/19 21:24 Home Medications Home Medications Medication Instructions Recorded Confirmed Type metoprolol succinate 25 mg PO QAM 30 Days #30 tab 06/28/19 07/18/19 Rx bupropion HCl 300 mg 24 hr tablet, 300 mg PO QAM #30 tab 07/05/19 07/18/19 Rx extended release lorazepam 0.5 mg tablet 0.5 mg PO TID PRN #60 tab 07/05/19 07/18/19 Rx mupirocin 2 % topical ointment 1 appln TOP TID #30 gm 07/05/19 07/18/19 Rx Past Med/Surg History Medical History Anxiety No known health problems Tobacco use Surgical History No pertinent past surgical history Family History Mother Heart disease Diabetes Hypertension Myocardial infarction Father Accidental Sister Heart disease arrhythmia, ? CHF Myocardial infarction Sister Heart disease valvular heart disease Brother Heart disease CHF Social History Preferred Language: Citizen Of [place] Communication Ability: Effective Visual Impairment: No Limitations Hearing Ability: Normal Can Doffer Required: No Beliefs That Will Affect Care: None marital status: Current Living Situation: Spouse current occupational status: unemployed Feels Safe at Home: Yes Smoking Status: Current every day smoker Tobacco Type: cigarettes ; Cigarettes Per Day: 20 ; Second Hand Exposure: No ; Hx Alcohol Use: Yes Alcohol type: beer, wine and hard liquor Hx Substance Use: No Childhood Exposure to Second-Hand Smoke: Yes Dental Care, Regularly: No Physical Activity Frequency: Does not Exercise Seatbelt Use: always Sunscreen Use: No Review of Systems Review of Systems: Constitutional- no fever; no weight loss Eyes- no acute visual changes ENT- no sinus drainage; no pharyngitis Pulmonary- As in HPI Cardiac- As in HPI GI- no nausea, no vomiting, no diarrhea, no melena, no hematochezia - no dysuria, no hematuria Musculoskeletal- no arthralgias, no myalgias Derm- no rashes, no new skin lesions. Hematologic- no unusual bruising, no unusual bleeding Lymphatics- no adenopathy Endocrine- no polyuria or polydipsia; no heat or cold intolerance Neuro- no headaches, no focal neurologic symptoms Psych- no depression, + chronic anxiety. Physical Exam Physical Exam: General- adult female, NAD Head- atraumatic Eyes- PERRL, EOMI, anicteric ENT- oropharynx clear Neck- supple, no JVD, no adenopathy, no thyromegaly. Lungs- Mild expiratory wheezing b/l. No crackles, No rhonchi. Heart- regular rhythm; no murmur, no gallop, no rub appreciated Abdomen- normal bowel sounds, soft, nontender. Extremities- no pretibial edema, no calf tenderness; peripheral pulses intact Neuro- alert, oriented x 3; PERRL, EOMI; fishing boat captain II-XII grossly intact, non-focal. Skin- warm & dry. By time I evaluated the patient, urticaria had resolved. Results & Data Vital Signs (Past 12 Hours) Vital Signs Temp Pulse Pulse Resp BP BP Pulse Ox 07/19/19 00:46 99 H 20 101/61 94 07/18/19 23:29 99 H 20 125/76 96 07/18/19 22:44 94 H 17 95 07/18/19 22:43 95 H 20 102/73 96 07/18/19 22:42 91 H 20 95 07/18/19 22:41 95 H 07/18/19 22:01 103 H 21 98 07/18/19 22:00 107 H 21 103/78 98 07/18/19 21:48 111 H 26 H 97 07/18/19 21:43 109 H 19 92/74 L 97 07/18/19 21:40 98 07/18/19 21:02 36.3 C L 127 H 22 116/79 99 Laboratory Results Laboratory Results WBC 14.07 K/uL (4.8-10.8) H 07/18/19 21:48 RBC 5.68 M/uL (4.2-5.4) H 07/18/19 21:48 Hgb 15.8 g/dL (12.0-16.0) 07/18/19 21:48 Hct 45.9 % (37-47) 07/18/19 21:48 MCV 80.8 fL (80-100) 07/18/19 21:48 MCH 27.8 pg (25-34) 07/18/19 21:48 MCHC 34.4 g/dL (32-36) 07/18/19 21:48 RDW Std Deviation 48.9 fL (36.4-46.3) H 07/18/19 21:48 RDW Coeff of Cuong 16.6 % (11.5-14.5) H 07/18/19 21:48 Plt Count 255 K/uL (130-400) 07/18/19 21:48 MPV 10.3 fL (7.4-10.4) 07/18/19 21:48 Immature Gran % (Auto) 0.4 % 07/18/19 21:48 Neut % (Auto) 84.3 % 07/18/19 21:48 Lymph % (Auto) 11.0 % 07/18/19 21:48 Davison % (Auto) 4.0 % 07/18/19 21:48 Eos % (Auto) 0.2 % 07/18/19 21:48 Baso % (Auto) 0.1 % 07/18/19 21:48 Immature Gran # (Auto) 0.05 K/uL (0.00-0.02) H 07/18/19 21:48 Neut # (Auto) 11.87 K/uL (1.4-6.5) H 07/18/19 21:48 Lymph # (Auto) 1.55 K/uL (1.2-3.4) 07/18/19 21:48 Davison # (Auto) 0.56 K/uL (0.11-0.59) 07/18/19 21:48 Eos # (Auto) 0.03 K/uL (0-0.5) 07/18/19 21:48 Baso # (Auto) 0.01 K/uL (0-0.2) 07/18/19 21:48 PT 9.9 Seconds (9.0-12.0) 07/18/19 21:48 INR 1.0 (0.9-1.1) 07/18/19 21:48 APTT 22.9 Seconds (21.0-31.0) 07/18/19 21:48 PTT Ratio 0.8 07/18/19 21:48 D-Dimer > 84386 ug/L FEU (0-500) H* 07/18/19 21:48 Sodium 137 mmol/L (136-145) 07/18/19 21:48 Potassium 3.9 mmol/L (3.5-5.1) 07/18/19 21:48 Chloride 105 mmol/L (98-107) 07/18/19 21:48 Carbon Dioxide 23 mmol/L (21-32) 07/18/19 21:48 Anion Gap 9.0 (3-11) 07/18/19 21:48 BUN 16 mg/dl (7-18) 07/18/19 21:48 Creatinine 1.05 mg/dl (0.6-1.2) 07/18/19 21:48 Est Cr Clr Drug Dosing 70.1 ml/min 07/18/19 21:48 Est GFR ( Amer) 70.7 07/18/19 21:48 Est GFR (Non-Af Amer) 61.0 07/18/19 21:48 BUN/Creatinine Ratio 15.4 (10-20) 07/18/19 21:48 Glucose 120 mg/dl (70-99) H 07/18/19 21:48 Calcium 9.1 mg/dl (8.5-10.1) 07/18/19 21:48 Magnesium 1.8 mg/dl (1.8-2.4) 07/18/19 21:48 Total Bilirubin 0.8 mg/dl (0.2-1) 07/18/19 21:48 AST 12 U/L (15-37) L 07/18/19 21:48 ALT 22 U/L (12-78) 07/18/19 21:48 Alkaline Phosphatase 94 U/L (45-117) 07/18/19 21:48 Troponin I < 0.015 ng/ml (0-0.045) 07/18/19 21:48 Total Protein 7.8 gm/dl (6.4-8.2) 07/18/19 21:48 Albumin 3.9 gm/dl (3.4-5.0) 07/18/19 21:48 Globulin 3.9 gm/dl (2.5-4.0) 07/18/19 21:48 Albumin/Globulin Ratio 1.0 (0.9-2) 07/18/19 21:48 HCG, Qual Negative (Negative) 07/18/19 21:48 Urine Color Yellow 07/18/19 23:30 Urine Appearance Cloudy (Clear) A 07/18/19 23:30 Urine pH 5.0 (4.5-7.5) 07/18/19 23:30 Ur Specific Aurora > 1.045 (1.000-1.030) H 07/18/19 23:30 Urine Protein Negative (Negative) 07/18/19 23:30 Urine Glucose (UA) Negative (Negative) 07/18/19 23:30 Urine Ketones Negative (Negative) 07/18/19 23:30 Urine Blood Negative (Negative) 07/18/19 23:30 Urine Nitrite Negative (Negative) 07/18/19 23:30 Urine Bilirubin Negative (Negative) 07/18/19 23:30 Urine Urobilinogen Negative (Negative) 07/18/19 23:30 Ur Leukocyte Esterase Negative (Negative) 07/18/19 23:30 Urine WBC (Auto) 5-10 /hpf (0-5) H 07/18/19 23:30 Urine RBC (Auto) 0-4 /hpf (0-4) 07/18/19 23:30 U Hyaline Cast (Auto) >30 /lpf (0-5) H 07/18/19 23:30 U Epithel Cells (Auto) >30 /lpf (0-5) H 07/18/19 23:30 Urine Bacteria (Auto) 1+ (Negative) H 07/18/19 23:30 Urine Mucus Present (None Prsent) A 07/18/19 23:30 Diagnostic Findings [place], [place] [phone] XRay Report Patient: KRISHNA FERGUSON Date: 07/18/19 MR#: [id number]: [id number] Acct ID:[id number]: Date: 1965[facility] Zip: [place] [address] Age: 53Location: ED Sex: F Room/Bed: Att Phy:Diagnosis: HIVES, SWOLLEN FEET, WEAK, SOB Beba Phy: Ugo Watson MD(MELISSA)Service Date: 07/18/19 [facility] Phy:Interpreting Phy: John Mtz MD Admit Phy: Ordering Phy: Elba Leonard PA-C cc: ~ XR chest 1V portable HISTORY: Dyspnea COMPARISON: Chest 06/27/2019. FINDINGS: The lungs are clear. Cardiac silhouette is normal in size. No pleural effusions. No pneumothorax. IMPRESSION: No acute process. ACT 112: Negative or not required by law. Electronically signed by: John Mtz M.D. 07/18/2019 9:49 PM Dictated: 07/18/192147 Transcribed: 07/18/192147 [place], [place] [phone] Ultrasound Report Patient: KRISHNA FERGUSON Date: 07/18/19 MR#: [id number]: [id number] Acct ID:[id number]: Date: 1965[facility] Zip: [place] [address] Age: 53Location: ED Sex: F Room/Bed: Att Phy:Diagnosis: HIVES, SWOLLEN FEET, WEAK, SOB Beba Phy: Carolina PradoNPService Date: 07/18/19 Fam Phy:Interpreting Phy: John Mtz MD Admit Phy: Ordering Phy: Elba Leonard PA-C cc: ~ BILATERAL LOWER EXTREMITY VENOUS DOPPLER HISTORY: Leg swelling. Dyspnea, swelling COMPARISON STUDY: None. FINDINGS: There is normal compressibility, flow, and augmentation within the bilateral lower extremity deep venous systems. IMPRESSION: No DVT within the right or left lower extremity. ACT 112: Negative or not required by law. Electronically signed by: John Mtz M.D. 07/18/2019 10:43 PM Dictated: 07/18/192242 Transcribed: 07/18/192242 Code Status & VTE Plan VTE Prophylaxis Plan VTE Prophylaxis will be ordered: Yes PG Care Time/CCT Total # of Minutes Spent Total Time Spent: 55 Total Time Spent with Patient: Total time spent is greater than 50% in coordination of care (as documented) at patient's floor/unit and/or counseling patient: Coding Level of Care Code 59284 OBS Care - Level 3 Diagnoses Pulmonary embolism I26.93 Pulmonary embolism type: single subsegmental (without acute cor pulmonale) Urticaria L50.9 Anxiety F41.9 Tachycardia R00.0 (1) Pulmonary embolism Pulmonary embolism type: single subsegmental (without acute cor pulmonale) Qualified Code(s): I26.93 - Single subsegmental pulmonary embolism without acute cor pulmonale
[2019-07-19] MEDS ORDERED: ACETAMINOPHEN 325 MG TAB PO PRN (01:38)
[2019-07-19] MEDS ORDERED: ALBUTEROL 0.083% NEBU SOLN 3 ML VIAL NEB PRN (01:38)
[2019-07-19] MEDS ORDERED: ONDANSETRON INJ 2 MG/ML 2 ML VIAL IV PRN (01:38)
[2019-07-19 04:40] LABS: BUN Creatinine Ratio 13.5 (10-20); Calcium 8.4 mg/dl (8.5-10.1); Creatinine Clr Calc Pharmacy 66.9 ml/min; Est GFR (African American) 66.8; Est GFR (Non-African American) 57.7; Potassium 4.1 mmol/L (3.5-5.1)
[2019-07-19 04:43] LABS: Hematocrit (blood only) 38.1 % (37-47); Hemoglobin 12.9 g/dL (12.0-16.0); Mean Corpuscular Hemoglobin 27.3 pg (25-34); Mean Corpuscular Hgb Conc 33.9 g/dL (32-36); Mean Corpuscular Volume 80.5 fL (80-100); Mean Platelet Volume 9.8 fL (7.4-10.4); Platelet Count 220 K/uL (130-400); RDW Coefficient of Variation 16.6 % (11.5-14.5); RDW Standard Deviation 48.9 fL (36.4-46.3); Red Blood Count 4.73 M/uL (4.2-5.4); White Blood Count 8.81 K/uL (4.8-10.8)
--- NOTE | 2019-07-19 07:13 | CT Scan Report ---
CT ANGIOGRAPHY OF THE CHEST, PULMONARY EMBOLUS PROTOCOL CLINICAL HISTORY: Cough. Chest pain. Evaluate for pulmonary embolus. COMPARISON STUDY: Chest radiograph June 27, 2019 and July 18, 2019. TECHNIQUE: Following IV administration of 120 mL of Optiray-320, helical axial images of the chest we re obtained utilizing the pulmonary embolus protocol. Maximal intensity projections and sagittal and coronal reformats were viewed on an independent 3D workstation. IV contrast was administered withou t complication. Automated exposure control was utilized for the study. A dose lowering technique wa s utilized adhering to the principles of ALARA. CT DOSE: 421.14 mGy.cm FINDINGS: Note is made of a small segmental pulmonary embolus within the left upper lobe shown on ax ial image 219 of 331. No additional pulmonary emboli are noted. There is no pulmonary infarct. The si ze of the heart is normal. There is no pericardial effusion. There are prominent bilateral hilar lymp h nodes. None are pathologically enlarged. There is no pneumothorax or pleural effusion. There is no consolidation. Mild upper lobe predominant emphysema is present. Bony thorax and upper abdomen are un remarkable. IMPRESSION: 1. Small segmental pulmonary embolus within the left upper lobe. 2. Mild emphysema. ACT 112: Negative or not required by law. Electronically signed by: Ever Burroughs M.D. 07/19/2019 7:12 AM
[2019-07-19] MEDS: APIXABAN 5 MG TABLET PO SCH ×2 (08:04→20:12)
[2019-07-19] MEDS: PANTOprazole 40 MG TAB PO SCH ×2 (08:04→09:45)
[2019-07-19] MEDS ORDERED: BuPROPion XL 300 MG TABCR PO SCH (09:00)
[2019-07-19] MEDS ORDERED: METOPROLOL SUCC 25MG EXT REL TAB PO SCH (09:00)
[2019-07-19] MEDS: DiphenhydrAMINE HCL 50 MG/ML VIAL IV PRN (11:43)
[2019-07-19] MEDS ORDERED: methylPREDNISolone 125 MG in SYRINGE 0 ML IV ONE (11:45)
--- NOTE | 2019-07-19 12:42 | Electrocardiogram Report ---
Test Reason : Blood Pressure : / mmHG Vent. Rate : 105 BPM Atrial Rate : 105 BPM P-R Int : 144 ms QRS Dur : 070 ms QT Int : 334 ms P-R-T Axes : 063 083 034 degrees QTc Int : 441 ms Sinus tachycardia Otherwise normal ECG When compared with ECG of 28-JUN-2019 08:24, Hfrdn-lgplbhasg-lngho is no longer Present Confirmed by Raul Lux ([id number]) on 07/19/2019 12:42:28 PM Referred By: REFERRED SELF Confirmed By:Raul Lux
--- NOTE | 2019-07-19 17:33 | Hospitalist Progress Note ---
Date of Service July 19, 2019 Assessment & Plan (1) Pulmonary embolism: Continue OBS tele Left upper lobe Continue Eliquis for pulmonary embolism Patient is now on room air. Plan to discharge home tomorrow (2) Urticaria: Patient is allergic to metoprolol. After receiving another dose of metoprolol she started having urticaria again. Improved with Solu-Medrol 125 mg IV x1 and Benadryl 25 mg IV x1. Continue observing. (3) Anxiety: Continue prn lorazepam. 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 We will have to discontinue metoprolol since patient is allergic to it. Will discuss with cardiology in a.m. alternative. Subjective Patient seen and examined at the bedside. Patient rashes started when she was given metoprolol. Appears that she is allergic to metoprolol and has hives. Intervention with Solu-Medrol 125 mg IV and Benadryl 25 mg IV helped. Patient denies fever, chills, chest pain, shortness of breath, abdominal pain, frequency, urgency. She is still tachycardic. Review of Systems Review of Systems: All systems reviewed & are unremarkable except as noted in HPI & below Physical Exam Constitutional: WD/WN, vitals as above well developed Eyes: PERRL, conjunctivae normal, anicteric sclerae ENMT: external ear and nose normal, oropharynx normal Neck: trachea midline, no thyromegaly Respiratory: normal respiratory effort, lungs clear to auscultation Cardiovascular: Rate/Rhythm: + tachycardic Heart Sounds: normal S1 and normal S2 Gastrointestinal (Abdomen): normal bowel sounds, soft, nontender, no hepatosplenomegaly Musculoskeletal: no cyanosis or clubbing, extremities motor strength 5/5 Skin: no rashes, warm and dry Neurologic: patellar DTR's 2+ bilat, sensation intact Psychiatric: A+Ox3, euthymic affect Lymphatic: no cervical or axillary lymphadenopathy Results & Data ([facility]) Vital Signs (Past 12 Hours) Vital Signs Temp Pulse Pulse Resp BP BP Pulse Ox 07/19/19 16:00 95 H 14 07/19/19 15:02 96 H 16 121/80 95 07/19/19 14:52 121/80 07/19/19 14:02 101 H 19 07/19/19 12:00 95 H 18 07/19/19 10:00 94 H 15 02/03/20 08:00 36.7 C 07/19/19 07:57 87 20 133/89 97 07/19/19 06:18 36.5 C 85 15 96/56 L 93 07/19/19 06:00 93 H 18 07/19/19 05:30 86 17 PG Care Time/CCT Total # of Minutes Spent Total Time Spent with Patient: Total time spent is greater than 50% in coordination of care (as documented) at patient's floor/unit and/or counseling patient: Coding Level of Care Code 51641 Subseq Hosp Care Lvl 3 Diagnoses Pulmonary embolism I26.93 Pulmonary embolism type: single subsegmental (without acute cor pulmonale) Urticaria L50.9 Anxiety F41.9 Tachycardia R00.0 (1) Pulmonary embolism Pulmonary embolism type: single subsegmental (without acute cor pulmonale) Qualified Code(s): I26.93 - Single subsegmental pulmonary embolism without acute cor pulmonale
[2019-07-20] MEDS: APIXABAN 5 MG TABLET PO SCH ×2 (07:39→20:22)
[2019-07-20] MEDS: PANTOprazole 40 MG TAB PO SCH (07:40)
[2019-07-20] MEDS ORDERED: methylPREDNISolone 125 MG/2 ML VIAL IV STA (08:38)
[2019-07-20] MEDS ORDERED: methylPREDNISolone 125 MG in SYRINGE 0 ML IV STA (08:41)
--- NOTE | 2019-07-20 08:55 | Hospitalist Progress Note ---
Date of Service July 20, 2019 Assessment & Plan (1) Pulmonary embolism: Continue OBS tele Left upper lobe Continue Eliquis for pulmonary embolism Patient is now on room air. Plan to discharge home tomorrow (2) Urticaria: Patient is allergic to metoprolol. Stop metoprolol Improved with Solu-Medrol 125 mg IV x1 and Benadryl 25 mg IV x1. Continue observing. (3) Anxiety: Continue prn lorazepam. 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 Since patient allergic to metoprolol she is started on diltiazem 30 mg BID by cardiology. Appreciate cardiology recommendations. We will have to discontinue metoprolol since patient is allergic to it. Will discuss with cardiology in a.m. alternative. Subjective Patient seen and examined at the bedside. Continues to have a rash even though metoprolol was stopped. Most likely because allergy and is continues to circulating her blood. Patient has visible hives.it was better after she received Solu-Medrol 125 mg IV and Benadryl 25 mg IV .Patient denies fever, chills, chest pain, shortness of breath, abdominal pain, frequency, urgency. She is still tachycardic. Review of Systems Review of Systems: All systems reviewed & are unremarkable except as noted in HPI & below Physical Exam Constitutional: WD/WN, vitals as above well developed Eyes: PERRL, conjunctivae normal, anicteric sclerae ENMT: external ear and nose normal, oropharynx normal Neck: trachea midline, no thyromegaly Respiratory: normal respiratory effort, lungs clear to auscultation Cardiovascular: Rate/Rhythm: + tachycardic Heart Sounds: normal S1 and normal S2 Gastrointestinal (Abdomen): normal bowel sounds, soft, nontender, no hepatosplenomegaly Musculoskeletal: no cyanosis or clubbing, extremities motor strength 5/5 Skin: Hives on the torso, back, hands and legs Neurologic: patellar DTR's 2+ bilat, sensation intact Psychiatric: A+Ox3, euthymic affect Lymphatic: no cervical or axillary lymphadenopathy Results & Data ([facility]) Vital Signs (Past 12 Hours) Vital Signs Temp Pulse Pulse Resp BP Pulse Ox 07/20/19 07:07 36.4 C L 76 18 102/67 98 07/20/19 03:07 36.6 C 83 18 104/68 95 07/20/19 00:00 100 H 07/19/19 23:45 36.5 C 87 16 117/69 96 PG Care Time/CCT Total # of Minutes Spent Total Time Spent with Patient: Total time spent is greater than 50% in coordination of care (as documented) at patient's floor/unit and/or counseling patient: Coding Level of Care Code 35392 Subseq Hosp Care Lvl 3 Diagnoses Pulmonary embolism I26.93 Pulmonary embolism type: single subsegmental (without acute cor pulmonale) Urticaria L50.9 Anxiety F41.9 Tachycardia R00.0 (1) Pulmonary embolism Pulmonary embolism type: single subsegmental (without acute cor pulmonale) Qualified Code(s): I26.93 - Single subsegmental pulmonary embolism without acute cor pulmonale
[2019-07-20] MEDS: DiphenhydrAMINE HCL 50 MG/ML VIAL IV PRN (09:06)
[2019-07-20] MEDS ORDERED: DiphenhydrAMINE HCL 50 MG/ML VIAL IV ONE (11:08)
[2019-07-20] MEDS: SODIUM CHLORIDE 0.9% 1000ML 1,000 ML IV SCH ×2 (11:26→20:22)
[2019-07-20] MEDS ORDERED: dilTIAZem HCL 30 MG TAB PO ONE (15:07)
--- NOTE | 2019-07-20 15:20 | Cardiology Consultation ---
Date of Consultation July 20, 2019 Assessment & Plan (1) Urticaria: (2) Jukfu-Raqptnhee-Qlify (WPW) syndrome: Metoprolol has been discontinued due to concerns of intolerance, hives. Patient had been seen by Dr Ling of electrophysiology both at the time of her initial admission last month and again last week in follow-up. Metoprolol had been recommended as her agent of choice. Given the morphology of her EKG, it was anticipated that her rhythm would not be easily amenable to ablation. I discussed her case by phone with Dr. Ling and we decided to start low-dose short acting diltiazem 30 mg twice daily. The patient's blood pressure is relatively low at baseline. An echocardiogram had been performed last month on 06/28/2019 with normal left ventricular myocardial thickness, normal LVEF in the range of 60-65% and normal valve function. The patient's blood pressure is stable, without significant hypoxia, and I see no indication for repeating the echocardiogram at this time. (3) Pulmonary embolism: Agree with anticoagulation with Eliquis. -Follow-up as outpatient with Dr. Ling in 4 weeks. History of Present Illness Attending Physician: Samuel Ang MD History of Present Illness Sonja Issa is a 53 year old female seen in cardiology consultation per the request of Dr Ang for the evaluation of tachycardia. The patient was admitted last month for complaints of palpitations. In the emergency department on 06/27/2019 she was found to have a narrow complex tachycardia 165 bpm. She received a dose of IV adenosine with successful conversion to sinus rhythm. Her EKG while in sinus rhythm last month included findings of a delta wave which was positive in lead I and negative in lead II. She was diagnosed with Agarwal Parkinson White syndrome and treatment with metoprolol succinate 25 mg daily was recommended. She is also been on bupropion for treatment of anxiety and for sm oking cessation. The patient presented to the emergency room at [facility] yesterday 07/19/2019 with complaints of hives over her lower extremities and back. She also noted mild nonspecific chest discomfort. A CT angiogram revealed a small segmental pulmonary embolism in the left upper lobe and mild emphysema. She has since been started on anticoagulation with Eliquis. At the time of my assessment, her hives had resolved, but the patient describes significant hives on her feet, legs, back, and around her IV site. I had discussed her case with who confirmed that she had seen hives. Patient describes that she has not been feeling well since starting the metoprolol, she notes that she does not like "the way her heart rate "feels. Allergies Allergy/AdvReac Type Severity Reaction Status Date / Time No Known Allergies Allergy Verified 07/18/19 21:24 Home Medications Home Medications Medication Instructions Recorded Confirmed Type metoprolol succinate 25 mg PO QAM 30 Days #30 tab 06/28/19 07/18/19 Rx bupropion HCl 300 mg 24 hr tablet, 300 mg PO QAM #30 tab 07/05/19 07/18/19 Rx extended release lorazepam 0.5 mg tablet 0.5 mg PO TID PRN #60 tab 07/05/19 07/18/19 Rx mupirocin 2 % topical ointment 1 appln TOP TID #30 gm 07/05/19 07/18/19 Rx Patient History Medical History Anxiety No known health problems Tobacco use Surgical History No pertinent past surgical history Family History Mother Heart disease Diabetes Hypertension Myocardial infarction Father Accidental Sister Heart disease arrhythmia, ? CHF Myocardial infarction Sister Heart disease valvular heart disease Brother Heart disease CHF Social History Preferred Language: Taj[place] Communication Ability: Effective Visual Impairment: No Limitations Hearing Ability: Normal Chainer Required: No Beliefs That Will Affect Care: None marital status: Current Living Situation: Spouse Current Living Situation Comment: lives with current occupational status: unemployed Feels Safe at Home: Yes Smoking Status: Current every day smoker Tobacco Type: cigarettes ; Cigarettes Per Day: 1 pack ; Second Hand Exposure: No ; Hx Alcohol Use: Yes Alcohol type: beer, wine and hard liquor Hx Substance Use: No Childhood Exposure to Second-Hand Smoke: Yes Dental Care, Regularly: No Physical Activity Frequency: Does not Exercise Seatbelt Use: always Sunscreen Use: No Review of Systems Review of Systems: All systems reviewed & are unremarkable except as noted in HPI & below Physical Exam Physical Exam: Temp Pulse Resp BP Pulse Ox 36.6 C 84 18 116/72 99 07/20/19 15:07 07/20/19 15:07 07/20/19 15:07 07/20/19 15:07 07/20/19 15:07 Constitutional: WD/WN, vitals as above Respiratory: normal respiratory effort, lungs clear to auscultation Cardiovascular: RRR, no murmur, no edema Gastrointestinal (Abdomen): normal bowel sounds, soft, nontender, no hepatosplenomegaly Skin: no rashes, warm and dry Neurologic: PERRL, EOMI, accommodation nl, no face palsy, no dysarthria Results & Data Vital Signs (Past 12 Hours) Vital Signs Temp Pulse Pulse Resp BP BP Pulse Ox 07/20/19 11:04 36.6 C 70 19 131/77 97 07/20/19 07:07 36.4 C L 76 18 102/67 98 Laboratory Results Intake and Output 07/20/19 07/20/19 07/20/19 06:59 14:59 22:59 Intake Total 790 / 790 Balance 790 / 790 Intake: Oral 790 / 790 Other: Weight 85 kg Diagnostic Findings EKG performed 07/18/2019 at 2140 revealed sinus tachycardia 105 bpm. Compared to the prior tracing performed 06/28/2019 the delta wave pattern was no longer appreciated. (1) Pulmonary embolism Pulmonary embolism type: single subsegmental (without acute cor pulmonale) Qualified Code(s): I26.93 - Single subsegmental pulmonary embolism without acute cor pulmonale
[2019-07-20] MEDS: LORazepam 0.5 MG TAB PO PRN ×2 (17:33→23:49)
[2019-07-21] MEDS: SODIUM CHLORIDE 0.9% 1000ML 1,000 ML IV SCH ×3 (03:42→19:29)
[2019-07-21] MEDS: DiphenhydrAMINE HCL 50 MG/ML VIAL IV PRN (06:35)
[2019-07-21] MEDS ORDERED: FAMOTIDINE 10 MG TABLET PO SCH (06:50)
[2019-07-21] MEDS ORDERED: LORATADINE 10 MG TAB PO SCH (06:50)
[2019-07-21 07:13] LABS: Basophils # (auto) 0.02 K/uL (0-0.2); Basophils % (auto) 0.1 %; Eosinophils # (auto) 0.01 K/uL (0-0.5); Eosinophils % (auto) 0.1 %; Hematocrit (blood only) 38.7 % (37-47); Hemoglobin 12.7 g/dL (12.0-16.0); Immature Granulocytes # (auto) 0.09 K/uL (0.00-0.02); Immature Granulocytes % (auto) 0.6 %; Lymphocytes # (auto) 3.87 K/uL (1.2-3.4); Lymphocytes % (auto) 25.3 %; Mean Corpuscular Hemoglobin 27.7 pg (25-34); Mean Corpuscular Hgb Conc 32.8 g/dL (32-36); Mean Corpuscular Volume 84.3 fL (80-100); Mean Platelet Volume 10.5 fL (7.4-10.4); Monocytes # (auto) 0.91 K/uL (0.11-0.59); Monocytes % (auto) 5.9 %; Neutrophils # (auto) 10.42 K/uL (1.4-6.5); Platelet Count 211 K/uL (130-400); RDW Coefficient of Variation 17.2 % (11.5-14.5); RDW Standard Deviation 53.2 fL (36.4-46.3); Red Blood Count 4.59 M/uL (4.2-5.4); White Blood Count 15.32 K/uL (4.8-10.8)
--- NOTE | 2019-07-21 07:27 | Hospitalist Progress Note ---
Date of Service July 21, 2019 Assessment & Plan (1) Pulmonary embolism: Continue admission to PCU on telemetry. Left upper lobe Continue Eliquis for pulmonary embolism Patient is now on room air. Plan to discharge home tomorrow (2) Urticaria: Appreciate Dr. Villaseñor recommendations. Started sertraline 10 mg p.o. twice daily, hydroxyzine 25 mg 3 times daily, famotidine 20 mg p.o. twice daily. IV steroids switched to prednisone 60 mg and taper down every 3 days to 10 mg. Continue following of signs of hypoxia and lip or tongue swelling. Follow-up with allergy immunology. (3) Anxiety: Continue prn lorazepam. (4) Tachycardia: Patient had another episode of SVTs brief for 10 minutes. 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 Continue diltiazem 30 mg BID by cardiology. Appreciate cardiology recommendations. Subjective Patient seen and examined at the bedside. Continues to have a rash even though Metoprolol was stopped and started Diltiazem. The case was discussed with Dr. Mcintosh allergy senior compensation consultant and he diagnosed with idiopathic hives caused by recent stress and anxiety. Patient denies fever, chills, chest pain, shortness of breath, abdominal pain, frequency, urgency. Patient had episode of SVTs this morning and diltiazem was given s/p receiving 125 of Solu-Medrol and diphenhydramine 25 mg IV x1. Review of Systems Review of Systems: All systems reviewed & are unremarkable except as noted in HPI & below Physical Exam Constitutional: WD/WN, vitals as above well developed Eyes: PERRL, conjunctivae normal, anicteric sclerae ENMT: external ear and nose normal, oropharynx normal Neck: trachea midline, no thyromegaly Respiratory: normal respiratory effort, lungs clear to auscultation Cardiovascular: Rate/Rhythm: + tachycardic Heart Sounds: normal S1 and normal S2 Gastrointestinal (Abdomen): normal bowel sounds, soft, nontender, no hepatosplenomegaly Musculoskeletal: no cyanosis or clubbing, extremities motor strength 5/5 Skin: no rashes, warm and dry Neurologic: patellar DTR's 2+ bilat, sensation intact Psychiatric: A+Ox3, euthymic affect Lymphatic: no cervical or axillary lymphadenopathy Results & Data ([facility]) Vital Signs (Past 12 Hours) Vital Signs Temp Pulse Pulse Resp BP Pulse Ox 07/21/19 03:11 36.5 C 77 18 119/72 95 07/21/19 00:00 69 07/20/19 23:59 36.7 C 83 18 122/76 98 PG Care Time/CCT Total # of Minutes Spent Total Time Spent with Patient: Total time spent is greater than 50% in coordination of care (as documented) at patient's floor/unit and/or counseling patient: Coding Level of Care Code 89142 Subseq Hosp Care Lvl 3 Diagnoses Pulmonary embolism I26.93 Pulmonary embolism type: single subsegmental (without acute cor pulmonale) Urticaria L50.9 Anxiety F41.9 Tachycardia R00.0 (1) Pulmonary embolism Pulmonary embolism type: single subsegmental (without acute cor pulmonale) Qualified Code(s): I26.93 - Single subsegmental pulmonary embolism without acute cor pulmonale
[2019-07-21 07:53] LABS: Albumin Level 3.3 gm/dl (3.4-5.0); BUN Creatinine Ratio 17.7 (10-20); Calcium 8.5 mg/dl (8.5-10.1); Creatinine Clr Calc Pharmacy 85.4 ml/min; Est GFR (African American) 80.8; Est GFR (Non-African American) 69.8; Potassium 3.6 mmol/L (3.5-5.1)
[2019-07-21 07:56] LABS: Bilirubin,Total 0.3 mg/dl (0.2-1); Globulin 3.4 gm/dl (2.5-4.0); Total Protein 6.7 gm/dl (6.4-8.2)
[2019-07-21] MEDS ORDERED: CALAMINE/PRAMOXINE LOTION 180 APPLN/180 ML BTL EXT PRN (08:25)
[2019-07-21] MEDS: APIXABAN 5 MG TABLET PO SCH ×2 (08:47→20:46)
[2019-07-21] MEDS: PANTOprazole 40 MG TAB PO SCH (08:48)
[2019-07-21] MEDS ORDERED: dilTIAZem HCL 30 MG TAB PO SCH (09:00)
[2019-07-21] MEDS ORDERED: dexAMETHasone 4 MG in SYRINGE 0 ML IV SCH (09:00)
--- NOTE | 2019-07-21 09:42 | Allergy & Immunology Consult ---
Date of Consultation July 21, 2019 Assessment & Plan (1) Urticaria: Patient presents with hives that I suspect is idiopathic in nature. She has had a number of risk factors. She has had a lot of stress and anxiety given the recent diagnosis of her arrhythmias. In addition, she developed pulmonary embolus, and any inflammatory condition can predispose to urticaria. Furthermore, she is going through menopause, and we commonly see idiopathic hives arise as result of hormonal changes. Both the metoprolol and diltiazem have extremely good allergy profiles, it would be statistically extremely unlikely that both of these could be allergic. Instead I think that the underlying urticaria is really the issue, and this can certainly wax and wane independent of medication allergies. She has had blood work as an inpatient that were essentially unremarkable for things that may be underlying hives including thyroid function. I will check a blood tryptase, as this can be helpful in distinguishing drug allergy from idiopathic hives and mast cell disorders. I recommend we aggressively treat her hives with maximal antihistamines. I recommend combining H1 blockers, an H2 david, and a steroid taper. I recommend cetirizine 10 mg p.o. b.i.d. in combination with hydroxyzine 25 mg 3x/day. If she starts to get sedation with hydroxyzine, we could give all of these doses at bedtime, as hydroxyzine is metabolized in to cetirizine and has long acting antihistamine properties. I would stop the Benadryl one we switch to these. I also recommend that she take famotidine 20 mg b.i.d.. Regarding the corticosteroids, it would be fine to switch to oral formulation. Typically, patients with urticaria do not get additional benefit at doses above 60 mg. As result, I would start her on 60 mg of prednisone with a taper by 10 mg every three days. I recommend that either the metoprolol or diltiazem be restarted, depending on which the primary team thinks would be most effective. When the 1st dose was given, I would monitor her blood pressure and heart rate. IgE mediated reacti ons would occur within 30 minutes, and if there are no changes in these parameters, she can be discharged on this medication. From the discharge standpoint, these hives are not necessarily dangerous. In this setting, they tend to be more uncomfortable rather than life-threatening. We can effectively manage these as an outpatient. I can set up a follow-up visit in my clinic this week and she can call me if the hives persist. (2) Pulmonary embolism: History of Present Illness Attending Physician: Samuel Ang MD History of Present Illness This is a 53-year-old female with a history of WPW syndrome and a recent diagnosis of pulmonary embolism this been complicated by acute urticaria, question of drug allergy. The patient was recently admitted about a week ago because of tachycardia and was sent home on metoprolol. She was tolerating it well. However, about five days ago she started to develop itching which then progressed to hives diffusely. She describes these as red, raised, very itchy. She was taking Benadryl home, which was helping. She denied any use of NSAIDs or any new medications other than the metoprolol. There was no association with foods. She was not feeling well, and she was worried that it might have been the underlying arrhythmias flaring up. She checked her blood pressure at home and was low with a systolic of 70. She came in to the ER as result. She has never had any previous episode hives. As a child, she ate a while black [place] and developed hives on the face, but no other episodes. She has been under lot of stress because of the diagnosis of her arrhythmias and says that she has underlying anxiety that is worsened. She also has gone through menopause and feels as though this is contributing to issues with her overall health. She denies any association of hives with alcohol consumption or NSAIDs. She has not identified anything else that might be a trigger for her hives. She has been treated with Benadryl every 6 hours, now every 4 hours, and systemic corticosteroids. There was a concern about a metoprolol allergy, and so she was switched to diltiazem. After starting this, it seems that the hives worsened. Allergies Allergy/AdvReac Type Severity Reaction Status Date / Time metoprolol Allergy Hives Verified 07/20/19 18:39 Home Medications Home Medications Medication Instructions Recorded Confirmed Type metoprolol succinate 25 mg PO QAM 30 Days #30 tab 06/28/19 07/18/19 Rx bupropion HCl 300 mg 24 hr tablet, 300 mg PO QAM #30 tab 07/05/19 07/18/19 Rx extended release lorazepam 0.5 mg tablet 0.5 mg PO TID PRN #60 tab 07/05/19 07/18/19 Rx mupirocin 2 % topical ointment 1 appln TOP TID #30 gm 07/05/19 07/18/19 Rx Patient History Medical History Anxiety No known health problems Tobacco use Surgical History No pertinent past surgical history Family History Mother Heart disease Diabetes Hypertension Myocardial infarction Father Accidental Sister Heart disease arrhythmia, ? CHF Myocardial infarction Sister Heart disease valvular heart disease Brother Heart disease CHF Social History Preferred Language: Pashto Communication Ability: Effective Visual Impairment: No Limitations Hearing Ability: Normal Panel Gluer Required: No Beliefs That Will Affect Care: None marital status: Current Living Situation: Spouse Current Living Situation Comment: lives with current occupational status: unemployed Other Information That Helps Us Care for You: No Feels Safe at Home: Yes Safety Concerns: Feels Safe At This Time Smoking Status: Current every day smoker Tobacco Type: cigarettes ; Cigarettes Per Day: 1 pack ; Do You Dip or Chew Tobacco: No ; Second Hand Exposure: No ; Tobacco Cessation Education Requested by Patient: No Hx Alcohol Use: Yes Alcohol type: beer, wine and hard liquor Hx Substance Use: No Childhood Exposure to Second-Hand Smoke: Yes Dental Care, Regularly: No Physical Activity Frequency: Does not Exercise Seatbelt Use: always Sunscreen Use: No Review of Systems Review of Systems: All systems reviewed & are unremarkable except as noted in HPI & below Physical Exam Physical Exam: General: alert and oriented. Head: normal in appearance Ears: tympanic membranes clear bilaterally Eyes: sclera anicteric, no conjunctival injection Nose: nasal mucosa without edema, without erythema, without bogginess Throat: oropharynx clear, no cobblestoning, tonsil exam unremarkable Neck and lymphatics: without lymphadenopathy or thyromegaly. Trachea Midline. No masses appreciated. Cardiovascular: regular rate and rhythm, normal S1 and S2. No murmurs, rubs, gallops appreciated. Lungs: Clear to auscultation bilaterally. No wheezing, rhonchi, crackles. Abdomen: Soft, non-tender, normal bowel sounds. Peripheral vascular and extremities: no cyanosis, clubbing, edema. Skin: Erythematous, raised lesions of varying size and shape scattered all over the body, consistent with urticaria. Results & Data Vital Signs (Past 12 Hours) Vital Signs Temp Pulse Pulse Resp BP Pulse Ox 07/21/19 08:00 99 H 07/21/19 07:59 36.5 C 79 20 120/71 99 07/21/19 03:11 36.5 C 77 18 119/72 95 07/21/19 00:00 69 07/20/19 23:59 36.7 C 83 18 122/76 98 Coding Level of Care Code 31759 Inpt Consult Level 4 Diagnoses Urticaria L50.9 Pulmonary embolism I26.93 Pulmonary embolism type: single subsegmental (without acute cor pulmonale) (1) Pulmonary embolism Pulmonary embolism type: single subsegmental (without acute cor pulmonale) Qualified Code(s): I26.93 - Single subsegmental pulmonary embolism without acute cor pulmonale
[2019-07-21] MEDS ORDERED: DiphenhydrAMINE HCL 50 MG/ML VIAL IV PRN (10:30)
[2019-07-21] MEDS ORDERED: dilTIAZem HCL 30 MG TAB PO ONE (11:30)
[2019-07-21] MEDS ORDERED: LORATADINE 10 MG TAB PO ONE (11:40)
[2019-07-21] MEDS: FAMOTIDINE 20 MG TAB PO SCH ×2 (12:35→20:45)
--- NOTE | 2019-07-21 14:25 | Cardiology Progress Note ---
Date of Service July 21, 2019 Assessment & Plan (1) Eclua-Snasebdgf-Wqiai (WPW) syndrome: Subjective Pt admitted due to hives and rash found to have a PE. Saw Superintendent has seen the patient today and reports it is not due to medications such as metoprolol or diltiazem. Pt had another episode of SVT-brief this morning-about 10 minutes; she did have palpitations with the episode Review of Systems Review of Systems: All systems reviewed & are unremarkable except as noted in HPI & below Physical Exam Physical Exam: Gen: aaox3, NAD HENT: NC/AT Eyes: EOMI Neck: Supple No JVD Cor: tachycardic S1/S2, No murmur Pulm: CTA b/l no w/r/r GI: soft nt/nd Legs: no LE edema b/l skin: intact, +Hives and erythema especially over neck region some over the arms and legs Neuro: no focal deficits Pysch: normal thought Results & Data Vital Signs (Past 12 Hours) Vital Signs Temp Pulse Pulse Resp BP Pulse Ox 07/21/19 11:10 36.4 C L 93 H 18 129/80 97 07/21/19 08:00 99 H 07/21/19 07:59 36.5 C 79 20 120/71 99 07/21/19 03:11 36.5 C 77 18 119/72 95 Telemetry: SR but then today while I was examining the pt she went into SVT 150s it broke before we could do an ECG Abnormal Lab Results 07/19/19 07/21/19 07/21/19 00:11 06:38 06:38 WBC 15.32 H RBC 4.59 Hgb 12.7 Hct 38.7 MCV 84.3 MCH 27.7 MCHC 32.8 RDW Std Deviation 53.2 H RDW Coeff of Cuong 17.2 H Plt Count 211 MPV 10.5 H Immature Gran % (Auto) 0.6 Neut % (Auto) 68.0 Lymph % (Auto) 25.3 [place] % (Auto) 5.9 Eos % (Auto) 0.1 Baso % (Auto) 0.1 Immature Gran # (Auto) 0.09 H Neut # (Auto) 10.42 H Lymph # (Auto) 3.87 H [place] # (Auto) 0.91 H Eos # (Auto) 0.01 Baso # (Auto) 0.02 Sodium 142 Potassium 3.6 Chloride 111 H Carbon Dioxide 26 Anion Gap 5.0 BUN 17 Creatinine 0.94 Est Cr Clr Drug Dosing 85.4 Est GFR ( Amer) 80.8 Est GFR (Non-Af Amer) 69.8 BUN/Creatinine Ratio 17.7 Glucose 74 Calcium 8.5 Total Bilirubin 0.3 AST 18 ALT 26 Alkaline Phosphatase 75 Total Protein 6.7 Albumin 3.3 L Globulin 3.4 Albumin/Globulin Ratio 1.[address] PE Protocol: IMPRESSION: 1. Small segmental pulmonary embolus within the left upper lobe. 2. Mild emphysema.
[2019-07-21] MEDS: dilTIAZem HCL 30 MG TAB PO SCH (20:45)
[2019-07-21] MEDS: LORazepam 0.5 MG TAB PO PRN (20:48)
[2019-07-22] MEDS: SODIUM CHLORIDE 0.9% 1000ML 1,000 ML IV SCH ×2 (03:30→11:16)
[2019-07-22 07:27] LABS: Basophils # (auto) 0.01 K/uL (0-0.2); Basophils % (auto) 0.1 %; Eosinophils # (auto) 0.08 K/uL (0-0.5); Eosinophils % (auto) 0.9 %; Hematocrit (blood only) 35.7 % (37-47); Hemoglobin 11.7 g/dL (12.0-16.0); Immature Granulocytes # (auto) 0.07 K/uL (0.00-0.02); Immature Granulocytes % (auto) 0.8 %; Lymphocytes # (auto) 3.05 K/uL (1.2-3.4); Lymphocytes % (auto) 33.2 %; Mean Corpuscular Hemoglobin 27.1 pg (25-34); Mean Corpuscular Hgb Conc 32.8 g/dL (32-36); Mean Corpuscular Volume 82.6 fL (80-100); Mean Platelet Volume 10.3 fL (7.4-10.4); Monocytes # (auto) 0.66 K/uL (0.11-0.59); Monocytes % (auto) 7.2 %; Neutrophils # (auto) 5.33 K/uL (1.4-6.5); Neutrophils % (auto) 57.8 %; Platelet Count 184 K/uL (130-400); RDW Coefficient of Variation 16.9 % (11.5-14.5); RDW Standard Deviation 51.6 fL (36.4-46.3); Red Blood Count 4.32 M/uL (4.2-5.4)
[2019-07-22 07:59] LABS: Albumin Level 3.1 gm/dl (3.4-5.0); BUN Creatinine Ratio 19.5 (10-20); Calcium 8.5 mg/dl (8.5-10.1); Est GFR (African American) 101.3; Est GFR (Non-African American) 87.4; Potassium 3.6 mmol/L (3.5-5.1)
[2019-07-22 08:02] LABS: Bilirubin,Total 0.3 mg/dl (0.2-1); Globulin 3.3 gm/dl (2.5-4.0); Total Protein 6.4 gm/dl (6.4-8.2)
[2019-07-22] MEDS: APIXABAN 5 MG TABLET PO SCH (08:03)
[2019-07-22] MEDS: FAMOTIDINE 20 MG TAB PO SCH (08:03)
[2019-07-22] MEDS: dilTIAZem HCL 30 MG TAB PO SCH (08:04)
[2019-07-22] MEDS: PANTOprazole 40 MG TAB PO SCH (08:04)
[2019-07-22] MEDS ORDERED: predniSONE 20 MG TAB PO SCH (09:00)
--- NOTE | 2019-07-22 12:28 | Discharge Summary ---
Date of Service July 22, 2019 Principal Diagnosis Pt is feeling better. No SOB or chest pain. She does still have some hives/itching, but much better. She is anxious to go home. Pt denies fever, abd pain, n/v, LE pain. She states that she has b/l foot swelling on admission, but this has since resolved. Tolerating PO without issue. She does feel constipated, which is unusual for her. She is not sleeping well in the hospital and feels she would sleep better at home. Discharge Exam Constitutional WD/WN, vitals as above Eyes normal visual lujan by confrontation and + anicteric sclerae Neck normal visual inspection and trachea midline Respiratory normal respiratory effort, lungs clear to auscultation Cardiovascular Rate/Rhythm: regular rate and regular rhythm Gastrointestinal (Abdomen) Inspection/Auscultation: abdomen not distended Percussion/Palpation: abdomen soft; abdomen nontender Musculoskeletal Head/Neck/Chest: normocephalic and head atraumatic Skin red, raised patches noted c/w urticaria--pt states much improved Neurologic awake; not confused Speech / Cognition: normal speech Psychiatric A+Ox3, euthymic affect Discharge Data Allergies Allergy/AdvReac Type Severity Reaction Status Date / Time metoprolol Allergy Hives Verified 07/20/19 18:39 Consultations 07/18/19 23:56 ED Decision to Admit Stat 07/19/19 01:38 Consult Case Management - Discharge Planning Routine 07/20/19 10:31 Consult Cardiology Routine 07/21/19 08:20 Consult Allergy / Immunology Routine Ordered Studies 07/18/19 21:37 US venous doppler LE BI Stat 07/18/19 22:53 CT angio chest PE protocol Urgent Hospital Course (1) Pulmonary embolism: Left upper lobe, noted on CTA Continue Eliquis for pulmonary embolism Stable on RA Coag panel pending on d/c to determine duration of tx (2) Urticaria: Appreciate Dr. Villaseñor recommendations. [place] related to stress and not medications Started sertraline 10 mg p.o. twice daily, hydroxyzine 25 mg 3 times daily, famotidine 20 mg p.o. twice daily. IV steroids switched to prednisone 60 mg and taper down every 3 days to 10 mg. Continue following of signs of hypoxia and lip or tongue swelling. Follow-up with allergy immunology tomorrow (3) Anxiety: Continue prn lorazepam. Advised to establish with outpt counseling Improved anxiety will likely help with smoking cessation Resume wellbutrin (4) Tachycardia: Patient had another episode of SVTs brief for 10 minutes. 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 Some concern for urticaria being caused by metoprolol, this was changed to diltiazem 30 mg BID by cardiology. Appreciate cardiology recommendations. (5) Tobacco use: Advised that smoking is a risk factor for blood clots Pt has been working on cessation since her recent dx of WPW last month Feels she is doing well without a patch during admission and does not want one on d/c Advised to resume wellbutrin Advised that counseling for anxiety will help with cessation as pt notes anxiety is a smoking trigger for her Given info re [place] Quit Line Total Time Total Time Spent Total Time Spent (In Minutes): >30 Discharge Plan Discharge Items Patient Disposition: Home - Self-Care Reason For Visit: PULMONARY EMBOLUS Discharge Diagnosis: Pulmonary embolus Condition on Discharge: Good Activity: Resume your previous activity Non-emergency contact: Primary Care Provider and Historiography Teacher Call non-emergency contact if: you have any medication questions, your symptoms worsen and your pain is not controlled Follow-up/Referrals: Carolina Prado CRNP, MS, NYLON MENDER-C [Primary Care Provider] - 07/26/19 11:00 am (Please, follow up with Carolina WRIGHT on FridayJuly 26 at 11:00 am. *If you need to change this appointment, call the office at [phone].) Justina Ling DO [Physician] - 08/20/19 11:15 am (4 weeks) Samara Mcintosh MD [Physician] - 07/23/19 1:00 pm (Tomorrow, as scheduled) Diet: Regular Addtl Attending Provider Instructions: Smoking makes you more likely to have blood clots. You should continue with your smoking cessation efforts. A great resource for smoking cessation is the [place] Quit Line, which is free to use. You can contact them 06/01 at 4995-GXBJ-ZYE. They have smoking cessation counselors who you can speak to. They also offer free items like nicotine patches and gum. Pending Studies at Discharge: Yes Studies:: Coag panel Stand-Alone Forms: My [place] Education, Smoking Cessation Medications and DC Order Prescriptions: New famotidine 20 mg Tablet 20 mg PO BID Qty: 60 RF: 0 hydroxyzine HCl 25 mg Tablet 25 mg PO TID Qty: 60 RF: 0 diltiazem HCl 30 mg Tablet 30 mg PO BID Qty: 60 RF: 0 Eliquis 5 mg Tablet 10 mg PO BID Qty: 60 RF: 0 prednisone 20 mg Tablet 60 mg PO DAILY Qty: 20 RF: 0 Caldyphen 1-8 % Lotion 1 applic EXT TID PRN (Reason: itching) Qty: 177 RF: 0 Continued mupirocin 2 % ointment 1 appln TOP TID Qty: 30 RF: 3 bupropion HCl [Wellbutrin XL] 300 mg tablet extended release 24 hr 300 mg PO QAM Qty: 30 RF: 3 lorazepam 0.5 mg tablet 0.5 mg PO TID PRN (Reason: anxiety) Qty: 60 RF: 0 Discontinued metoprolol succinate 25 mg Tablet Extended Release 24 Hr 25 mg PO QAM 30 Days Qty: 30 RF: 0 Discharge Orders: Discharge Order (Routine); Ordered 07/22/19 Ordered By: Constance Norman/Other Patient Handouts: Quit Smoking Plan, Quit Smoking Get Support, Embolism Pulmonary Dc, Urticaria Hives Admission Data Admit Date/Time: 07/21/19 09:04 Attending Provider: Constance Lovett Admit Provider: Be Álvarez Primary Care Provider: Carolina Prado Other Providers: Be Álvarez ; Rob Dozier ; Samara Mcintosh Other Interventions: Discharge Summary Assessment (RN) Last Done: 07/22/19 09:23 DC Date/Time DO NOT enter until pt leaves facility: 07/22/19 13:26 Coding Level of Care Code D/C Day Management >30 mins Diagnoses Pulmonary embolism I26.93 Pulmonary embolism type: single subsegmental (without acute cor pulmonale) Urticaria L50.9 Anxiety F41.9 Tachycardia R00.0 Tobacco use Z72.0
[2019-07-24 22:46] LABS: Anti Cardiolipin Ab IgG <14 GPL; Anti Cardiolipin Ab IgM <12 MPL; Anti-Cardiolipin Ab IgA <11 APL; Anti-Thrombin III Activity 111 % activity (80-120); B2 Glycoprotein IgA <9 SAU (<=20); B2 Glycoprotein IgG <9 SGU (<=20); B2 Glycoprotein IgM <9 SMU (<=20); PTT LA Screen 37 sec (<=40); Protein S Functional(Activity) 57 % (60-140)
== END 2019-07-22 13:26 | disposition home or self-care (01) | DRG 606 ==
LOC: ED 21:00 → 1E 07-19 00:58 → SUATTDRO 07-19 00:58 → INTOOBSV 07-19 00:58 → 1E 07-19 01:24 → 2S 07-19 16:35 → SUATTDRO 07-21 09:04

== ENCOUNTER 2020-11-28 14:13 | Inpatient (IN) ==
[2020-11-28 16:26] LABS: Basophils # (auto) 0.04 K/uL (0-0.2); Basophils % (auto) 0.5 %; Eosinophils # (auto) 0.26 K/uL (0-0.5); Eosinophils % (auto) 3.3 %; Hematocrit (blood only) 45.6 % (37-47); Lymphocytes # (auto) 2.15 K/uL (1.2-3.4); Lymphocytes % (auto) 27.5 %; Mean Corpuscular Hemoglobin 30.9 pg (25-34); Mean Corpuscular Hgb Conc 35.1 g/dL (32-36); Mean Corpuscular Volume 88.2 fL (80-100); Mean Platelet Volume 10.1 fL (7.4-10.4); Monocytes # (auto) 0.61 K/uL (0.11-0.59); Monocytes % (auto) 7.8 %; Neutrophils # (auto) 4.77 K/uL (1.4-6.5); Neutrophils % (auto) 60.9 %; Platelet Count 243 K/uL (130-400); RDW Coefficient of Variation 13.6 % (11.5-14.5); RDW Standard Deviation 44.2 fL (36.4-46.3); Red Blood Count 5.17 M/uL (4.2-5.4); White Blood Count 7.83 K/uL (4.8-10.8)
[2020-11-28 16:39] LABS: Partial Thromboplastin Time 26.7 Seconds (21.0-31.0); Prothrombin Time 9.7 Seconds (9.0-12.0)
--- NOTE | 2020-11-28 16:50 | XRay Report ---
XR chest 1V portable CLINICAL HISTORY: Chest Pain COMPARISON STUDY: July 18, 2019 FINDINGS: No pneumothorax. No pleural effusion. No large infiltrates or consolidative lesions are seen. Reticular prominence of pulmonary interstitiu m is seen in bilateral bases without evidence of large infiltrates or consolidative lesions. Cardiomediastinal silhouette is within normal limits in size. No significant pulmonary vascular congestion.. Osseous structures: unremarkable IMPRESSION: 1. Slight reticular prominence within bilateral bases. ACT 112: Negative or not required by law. The above report was generated using voice recognition software. It may contain grammatical, syntax o r spelling errors. Electronically signed by: Allie Ocampo DO 11/28/2020 4:49 PM
--- NOTE | 2020-11-28 16:54 | CT Scan Report ---
CT head/brain wo con CLINICAL HISTORY: fall on eliquis COMPARISON STUDY: No previous studies for comparison. TECHNIQUE: Axial CT of the brain is performed from the vertex to the skull base. IV contrast was not administered for this examination. A dose lowering technique was utilized adhering to the principles of ALARA. CT DOSE: 614.27 mGy.cm FINDINGS: No intra or extra-axial mass lesions are visualized. There is no CT evidence of acute cortical infarc tion. There is no evidence of midline shift. There is no acute hemorrhage. No acute depressed calvar ial fractures are visualized. There are patchy white matter hypodensities likely on a small vessel basis. There is no evidence of pathologic ventricular dilatation. There is no evidence of acute sinusitis IMPRESSION: No acute intracranial hemorrhage, no midline shift or space occupying lesions. No acute depressed skull fractures are seen. ACT 112: Negative or not required by law. The above report was generated using voice recognition software. It may contain grammatical, syntax o r spelling errors. Electronically signed by: Allie Ocampo DO 11/28/2020 4:52 PM
[2020-11-28 17:10] LABS: BUN Creatinine Ratio 8.6 (10-20); Blood Urea Nitrogen 8 mg/dl (7-18); Calcium 9.6 mg/dl (8.5-10.1); Carbon Dioxide 27 mmol/L (21-32); Chloride 104 mmol/L (98-107); Creatinine Clr Calc Pharmacy 82.9 ml/min; Est GFR (African American) 81.8 ml/min; Est GFR (Non-African American) 70.6 ml/min; Glucose 96 mg/dl (70-99); Lipase 89 U/L (73-393); Sodium 138 mmol/L (136-145); Troponin I < 0.015 ng/ml (0-0.045)
--- NOTE | 2020-11-28 17:56 | Electrocardiogram Report ---
Test Reason : Blood Pressure : / mmHG Vent. Rate : 082 BPM Atrial Rate : 082 BPM P-R Int : 146 ms QRS Dur : 074 ms QT Int : 374 ms P-R-T Axes : 041 069 062 degrees QTc Int : 436 ms Normal sinus rhythm Normal ECG When compared with ECG of 02-AUG-2019 18:44, ST no longer elevated in Inferior leads ST no longer depressed in Anterolateral leads T wave inversion no longer evident in Lateral leads Confirmed by Cosmo Siegel ([id number]) on 11/28/2020 5:56:31 PM Referred By: Confirmed By:Haim Siegel
[2020-11-28] MEDS ORDERED: ACETAMINOPHEN 500 MG TAB PO STA (18:44)
[2020-11-28] MEDS ORDERED: SERTRALINE HCL 100 MG TABLET PO STA (18:45)
--- NOTE | 2020-11-28 20:26 | History & Physical Report ---
Date of Service November 28, 2020 Assessment & Plan (1) Syncope: Patient with syncope and collapse today striking her head - Likely cardiac related following vasodilation after shower - C-spine clinically cleared - see physical exam - Patient instructed to call for assistance any time she needs to get up while on the floor - Neuro exams q2 hours for tonight (2) Tkuyw-Bowvxpjff-Kuxlk (WPW) syndrome: AVNRT- 2019 - Continue Diltiazem - Continue Eliquis for PE - TSH in morning (3) Hypertriglyceridemia: Not on any medications as she is trying dietary management - lipids in morning (4) COPD with emphysema: Continues to smoke- symptoms controlled - Continue albuterol Q6 prn - Continue tiotropium/olodaterol (5) Current smoker: As above (6) Pulmonary nodules: Multiple follows with pulmonary with periodic imaging- no acute needs (7) Urticaria: Continues with multispecialties approaches - She stopped her Xolair shots secondary to joint pain - Hydroxyzine for her insomnia and urticaria - due to follow up with Dr. Carrillo in the future. 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 Ling [id number]-Zzjlyvgzr. She was started on Metoprolol, she then developed hives and was changed to Diltiazem. In July 2019 she presented with hives/welts and edema- where she incidentally was found to have a pulmonary embolism and was started on Eliquis. Patient has periods of tachycardia and palpitations that are usually short lived and they usually go away, however this morning the patient was watching TV and felt her heart rate start racing. She put on her FITBIT and noticed her HR at 150's, this was as sociated with dizziness, chest pressure and nausea. She subsequently went into shower to see if this would make her feel better, this did not and upon exiting the shower she felt everything go black and passed out. She awoken on the floor, and has a resulting abrasion to her right forehead and small hematoma. In the EMD the patient had a head CT done that is negative for intracranial bleed. The patient denies any neck pain or midline cervical tenderness. CXR with no acute process and ECG of NSR with no acute dynamic changes. Patient will be admitted for telemetry monitoring, frequent neurological examinations, monitoring of Troponin I, and electrolytes. Patient has not received her COVID vaccine and is COVID Negative on admission. No surgical history Allergies Allergy/AdvReac Type Severity Reaction Status Date / Time metoprolol Allergy Intermediate Hives Verified 11/28/20 17:32 Home Medications Medication Instructions Recorded Confirmed Type hydroxyzine HCl 25 mg tablet 25 mg PO TID #90 tab 08/23/19 11/28/20 Rx famotidine 20 mg tablet 20 mg PO BID #60 tab 10/14/19 11/28/20 Rx diltiazem HCl 30 mg tablet 30 mg PO BID #60 tab 04/24/20 11/28/20 Rx albuterol sulfate 90 mcg/actuation 2 inh INH Q6H PRN #18 g 09/18/20 11/28/20 Rx aerosol inhaler apixaban 5 mg tablet 5 mg PO BID #60 tab 10/04/20 11/28/20 Rx melatonin 5 mg capsule 5 mg PO .QHS #30 cap 10/04/20 11/28/20 Rx cetirizine [Zyrtec] 10 mg PO QAM 11/28/20 11/28/20 History sertraline 100 mg PO QDD 11/28/20 11/28/20 History flecainide 50 mg PO Q12 #60 tab 11/29/20 Rx Past Med/Surg History Medical History (Updated 12/02/20 @ 12:53 by Sami Torre) Anxiety Impetigo Insomnia PSVT (paroxysmal supraventricular tachycardia) Pulmonary embolism Tachycardia Urticaria Volrj-Npmmmjuge-Rdbmo (WPW) syndrome Family History Mother Heart disease Diabetes Hypertension Myocardial infarction Father Accidental Sister Heart disease arrhythmia, ? CHF Myocardial infarction Sister Heart disease valvular heart disease Brother Heart disease CHF Other Allergies Denies family history of Tuberculosis Ovarian cancer Prostate cancer Breast cancer Emphysema, unspecified Colorectal cancer Lung disease Asthma Social History Smoking Status: Current every day smoker Tobacco Type: Cigarettes packs per day: 0.5; Cigarettes Per Day: 5 a day; Second Hand Exposure: No; Hx Alcohol Use: No Hx Substance Use: No Preferred Language: Portuguese Communication Ability: Effective Visual Impairment: No Limitations Hearing Ability: Normal Loan Specialist Required: No Beliefs That Will Affect Care: None marital status: Current Living Situation: Spouse Current Living Situation Comment: lives with current occupational status: unemployed Feels Safe at Home: Yes Childhood Exposure to Second-Hand Smoke: Yes Dental Care, Regularly: No Physical Activity Frequency: Does not Exercise Seatbelt Use: always Sunscreen Use: No Assistive Devices: None Review of Systems Review of Systems: REVIEW OF SYSTEMS: Constitutional: No fever, sweats or chills Eyes: No diplopia, no worsening or blurred vision ENT: normal hearing, no trouble swallowing Respiratory: (+) cough, sputum, NO dyspnea at rest or on exertion Cardiovascular: (+) palpitations with pressure today, No chest pain, tightness or palpitations at current Abdomen: No pain, nausea, vomiting, diarrhea or constipation Musculoskeletal: No joint pain, calf pain, swelling Neurologic: No weakness, numbness/tingling, or balance problems Psychiatric: No anxiety or depression Skin: No rash or itch at current Physical Exam Physical Exam: PHYSICAL EXAM: General: awake, alert, no apparent distress Head: Normocephalic, no tenderness ENT: small medial septal bruise on right side, PERRLA, EOMI, no pharyngeal exudate, mucous membranes moist Neuro: AAO x 3, speech clear and appropriate, strength intact bilaterally 5/5, sensation intact and equal all extremities and dermatomes, no pronator drift - No cervical tenderness, no axial load to head, ambulatory, no paraesthesias, full extension and rotation of neck without pain. Chest: equal rise and fall of the chest, no accessory muscle use, no heaves or thrills, Clear to auscultation, on room air, Cardiac: Regular rate and rhythm, telemetry reviewed- NSR no ectopy, skin warm dry, cap refill <3 seconds, peripheral pulses +2 no JVD, no murmur, no edema GI: NABS x 4 quadrants, soft, nontender to palpation, no rebound, guarding or tenderness : Spontaneously voiding, no pain, no CVA tenderness, Extremities: Normal inspection, no peripheral edema or erythema, calfs nontender to palpation Psych: Normal mood and affect Skin: abrasion to right forehead, small hematoma Results & Data Results & Data ([facility]) Vital Signs (Past 12 Hours) Vital Signs Temp Pulse Pulse Resp BP BP Pulse Ox 11/28/20 19:07 96 H 16 109/91 95 11/28/20 18:31 85 21 123/86 95 11/28/20 18:30 86 16 96 11/28/20 18:00 86 18 106/58 L 97 11/28/20 17:30 88 17 118/85 93 11/28/20 17:01 82 12 98 11/28/20 17:00 93 H 24 121/90 98 11/28/20 16:31 85 19 98 11/28/20 16:30 85 16 112/83 97 11/28/20 16:26 82 20 97 11/28/20 16:21 87 20 114/85 98 11/28/20 16:20 86 20 98 11/28/20 16:17 85 20 114/85 97 11/28/20 14:37 36.8 C 104 H 20 113/78 97 Laboratory Results Abnormal lab results 11/28/20 11/28/20 Range/Units 16:16 16:16 Ware # (Auto) 0.61 H (0.11-0.59) K/uL BUN/Creatinine Ratio 8.6 L (10-20) Diagnostic Findings Chest X-Ray 11/28/20 16:05 XR chest 1V portable CLINICAL HISTORY: Chest Pain COMPARISON STUDY: July 18, 2019 FINDINGS: No pneumothorax. No pleural effusion. No large infiltrates or consolidative lesions are seen. Reticular prominence of pulmonary interstitium is seen in bilateral bases without evidence of large infiltrates or consolidative lesions. Cardiomediastinal silhouette is within normal limits in size. No significant pulmonary vascular congestion.. Osseous structures: unremarkable IMPRESSION: 1. Slight reticular prominence within bilateral bases. Electronically signed by: Allie Ocampo DO 11/28/2020 4:[address] 11/28/20 16:05 CT head/brain wo con CLINICAL HISTORY: fall on eliquis COMPARISON STUDY: No previous studies for comparison. TECHNIQUE: Axial CT of the brain is performed from the vertex to the skull base. IV contrast was not administered for this examination. A dose lowering technique was utilized adhering to the principles of ALARA. CT DOSE: 614.27 mGy.cm FINDINGS: No intra or extra-axial mass lesions are visualized. There is no CT evidence of acute cortical infarction. There is no evidence of midline shift. There is no acute hemorrhage. No acute depressed calvarial fractures are visualized. There are patchy white matter hypodensities likely on a small vessel basis. There is no evidence of pathologic ventricular dilatation. There is no evidence of acute sinusitis IMPRESSION: No acute intracranial hemorrhage, no midline shift or space occupying lesions. No acute depressed skull fractures are seen. Electronically signed by: Allie Ocampo DO 11/28/2020 4:52 PM Medications Administered Discontinued Medications Acetaminophen (Acetaminophen 500 Mg Tab) 1,000 mg PO NOW STA Stop: 11/28/20 18:45 Last Admin: 11/28/20 19:05 Dose: 1,000 mg Documented by: [id number] Sertraline HCl (Sertraline Hcl 100 Mg Tablet) 100 mg PO NOW STA Stop: 11/28/20 18:46 Last Admin: 11/28/20 19:05 Dose: 100 mg Documented by: [id number] ECG Additional Comments: Normal sinus rhythm Normal ECG When compared with ECG of 02-AUG-2019 18:44, ST no longer elevated in Inferior leads ST no longer depressed in Anterolateral leads T wave inversion no longer evident in Lateral leads Code Status & VTE Plan Code Status CODE: FULL VTE: Brenda Dillard Supervising Physician Co-Signing Physician Notes Attending Attestation & Admit Note: Pt seen/examined, chart reviewed, care plan d/w KYLE Baig. I agree w/ the saavedra components of his documentation. 55yo female with known h/o WPW syndrome, AVNRT, tobacco use - presenting with p alpitations/tachycardia at home (HR hit 158 several times). While tachycardic she took a shower; following such she had syncope, striking her head. Head CT neg for ICH, fracture, etc. Upon presentation was in NSR. PMH, PSH, allergies, meds, sochx, famhx - reviewed VSS, afebrile gen - NAD skin - abrasion right forehead, no laceration heart - RRR, s1 s2, no murmur lungs - CTA b/l abd - soft NT ND BS+ ext - no edema neuro - strength 5/5 x 4 exts labs wnl EKG - NSR, no ST changes, no obvious delta wave CT head neg cxr - slight reticular prominence per radiology A/P: Syncope - almost certainly due to AVNRT. She was very youssef in putting on her fit bit watch - this documented HRs of 150-160 (sustained). Actual rhythm doesn't get documented of course, but very likely to be AVNRT. Observe overnight. Cont CCB. Cont eliquis. [facility] consult in am. Anti-arrhythmic therapy? other? defer to cards. No evidence of ACS. CXR interpreted as "reticular prominence" but NO evidence of CHF or infectious process clinically. Sami Torre MD PG Care Time/CCT Total # of Minutes Spent Total Time Spent with Patient: Total time spent is greater than 50% in coordination of care (as documented) at patient's floor/unit and/or counseling patient: Coding Level of Care Code 66307 Initial Inpt Care Lvl 3 Diagnoses Syncope R55 Syncope type: unspecified Ysxtj-Zefztilzg-Pgpgt (WPW) syndrome I45.6 Hypertriglyceridemia E78.1 COPD with emphysema J43.9 Emphysema type: unspecified Current smoker F17.200 Pulmonary nodules R91.8 Urticaria L50.9 (1) COPD with emphysema Emphysema type: unspecified Qualified Code(s): J43.9 - Emphysema, unspecified (2) Syncope Syncope type: unspecified Qualified Code(s): R55 - Syncope and collapse
--- NOTE | 2020-11-28 20:53 | Emergency Department Note ---
History of Present Illness General Chief Complaint: Arrhythmia/Palpitations Stated Complaint: HIGH HEART RATE,FELL AND HIT HEAD Time Seen by Provider: 11/28/20 16:05 History of Present Illness Provider Complaint: + palpitations Time: 12:30 Duration: + Now resolved Severity: mild Maximum Pain Intensity: 4 Context: + occurred during rest Arrhythmia history: + on anti-coagulants (eliquis) and + other (WPW) Associated symptoms: + chest pain and + syncope (patient fell and hit her head); no shortness of breath Home Medications Medication Instructions Recorded Confirmed Type hydroxyzine HCl 25 mg tablet 25 mg PO TID #90 tab 08/23/19 11/28/20 Rx famotidine 20 mg tablet 20 mg PO BID #60 tab 10/14/19 11/28/20 Rx diltiazem HCl 30 mg tablet 30 mg PO BID #60 tab 04/24/20 11/28/20 Rx albuterol sulfate 90 mcg/actuation 2 inh INH Q6H PRN #18 g 09/18/20 11/28/20 Rx aerosol inhaler apixaban 5 mg tablet 5 mg PO BID #60 tab 10/04/20 11/28/20 Rx melatonin 5 mg capsule 5 mg PO .QHS #30 cap 10/04/20 11/28/20 Rx cetirizine [Zyrtec] 10 mg PO QAM 11/28/20 11/28/20 History sertraline 100 mg PO QDD 11/28/20 11/28/20 History Allergies Allergy/AdvReac Type Severity Reaction Status Date / Time metoprolol Allergy Intermediate Hives Verified 11/28/20 17:32 Past Med/Surg History Medical History (Updated 11/28/20 @ 21:07 by Cristobal Reyna) Anxiety Impetigo Insomnia PSVT (paroxysmal supraventricular tachycardia) Pulmonary embolism Tachycardia Urticaria Sihon-Llnyxfjdt-Ptqfj (WPW) syndrome Continues to have brief episode; mildly symptomatic, ok to give diltiazem 30mg BID and change to long acting upon discharge Family History Mother Heart disease Diabetes Hypertension Myocardial infarction Father Accidental Sister Heart disease arrhythmia, ? CHF Myocardial infarction Sister Heart disease valvular heart disease Brother Heart disease CHF Other Allergies Denies family history of Tuberculosis Ovarian cancer Prostate cancer Breast cancer Emphysema, unspecified Colorectal cancer Lung disease Asthma Social History Smoking Status: Current every day smoker Tobacco Type: Cigarettes packs per day: 0.5; Second Hand Exposure: No; Hx Alcohol Use: No Hx Substance Use: No Preferred Language: Danish Communication Ability: Effective Visual Impairment: No Limitations Hearing Ability: Normal Juice Standardizer Required: No Beliefs That Will Affect Care: None marital status: Current Living Situation: Spouse Current Living Situation Comment: lives with current occupational status: unemployed Feels Safe at Home: Yes Childhood Exposure to Second-Hand Smoke: Yes Dental Care, Regularly: No Physical Activity Frequency: Does not Exercise Seatbelt Use: always Sunscreen Use: No Assistive Devices: Glasses Review of Systems A total of 10 systems reviewed and were otherwise negative Physical Exam Vital Signs: Vital Signs - 24 hr 11/28/20 14:37 11/28/20 16:17 11/28/20 16:20 Temperature 36.8 C Temperature Source Temporal Artery Sc an Pulse Rate 104 H 85 86 Pulse Rate [Apical ] Pulse Rate from Sp O2 Sensor 86 Pulse Rhythm [Apic al] Pulse Strength [Ap ical] Respiratory Rate 20 20 20 Respiratory Effort / Characteristics Non-Labored Sponta neous Respiratory Depth Normal Respiratory Patter n Regular Blood Pressure 113/78 114/85 Blood Pressure [Le ft Arm] Blood Pressure Kareen n 89 94 Blood Pressure Kareen n [Left Arm] Blood Pressure Pos ition Sitting Blood Pressure Pos ition [Left Arm] Pulse Oximetry 97 97 98 Oxygen Delivery Me thod Room Air Room Air Sepsis Recent Feve r Within 48 Hours No Sepsis New/Unexpla ined Change in Men patience Status N/A Sepsis Action Take n by Nursing No Action Required 11/28/20 16:21 11/28/20 16:26 11/28/20 16:30 Temperature Temperature Source Pulse Rate 82 85 Pulse Rate [Apical ] 87 Pulse Rate from Sp O2 Sensor 85 85 Pulse Rhythm [Apic al] Pulse Strength [Ap ical] Respiratory Rate 20 20 16 Respiratory Effort / Characteristics Non-Labored Sponta neous Respiratory Depth Normal Respiratory Patter n Regular Blood Pressure 112/83 Blood Pressure [Le ft Arm] 114/85 Blood Pressure Kareen n 92 Blood Pressure Kareen n [Left Arm] 94 Blood Pressure Pos ition Blood Pressure Pos ition [Left Arm] Pulse Oximetry 98 97 97 Oxygen Delivery Me thod Room Air Sepsis Recent Feve r Within 48 Hours Sepsis New/Unexpla ined Change in Men patience Status Sepsis Action Take n by Nursing 11/28/20 16:31 11/28/20 17:00 11/28/20 17:01 Temperature Temperature Source Pulse Rate 85 93 H 82 Pulse Rate [Apical ] Pulse Rate from Sp O2 Sensor 84 83 82 Pulse Rhythm [Apic al] Pulse Strength [Ap ical] Respiratory Rate 19 24 12 Respiratory Effort / Characteristics Respiratory Depth Respiratory Patter n Blood Pressure 121/90 Blood Pressure [Le ft Arm] Blood Pressure Kareen n 100 Blood Pressure Kareen n [Left Arm] Blood Pressure Pos ition Blood Pressure Pos ition [Left Arm] Pulse Oximetry 98 98 98 Oxygen Delivery Me thod Sepsis Recent Feve r Within 48 Hours Sepsis New/Unexpla ined Change in Men patience Status Sepsis Action Take n by Nursing 11/28/20 17:30 11/28/20 18:00 11/28/20 18:30 Temperature Temperature Source Pulse Rate 88 86 86 Pulse Rate [Apical ] Pulse Rate from Sp O2 Sensor 87 87 85 Pulse Rhythm [Apic al] Pulse Strength [Ap ical] Respiratory Rate 17 18 16 Respiratory Effort / Characteristics Respiratory Depth Respiratory Patter n Blood Pressure 118/85 106/58 L Blood Pressure [Le ft Arm] Blood Pressure Kareen n 96 74 Blood Pressure Kareen n [Left Arm] Blood Pressure Pos ition Blood Pressure Pos ition [Left Arm] Pulse Oximetry 93 97 96 Oxygen Delivery Me thod Sepsis Recent Feve r Within 48 Hours Sepsis New/Unexpla ined Change in Men patience Status Sepsis Action Take n by Nursing 11/28/20 18:31 11/28/20 19:07 11/28/20 20:30 Temperature Temperature Source Pulse Rate 85 86 Pulse Rate [Apical ] 96 H Pulse Rate from Sp O2 Sensor 85 86 Pulse Rhythm [Apic al] Regular Pulse Strength [Ap ical] Normal Respiratory Rate 21 16 25 H Respiratory Effort / Characteristics Non-Labored Sponta neous Respiratory Depth Normal Respiratory Patter n Blood Pressure 123/86 129/75 Blood Pressure [Le ft Arm] 109/91 Blood Pressure Kareen n 98 93 Blood Pressure Kareen n [Left Arm] 97 Blood Pressure Pos ition Blood Pressure Pos ition [Left Arm] Lying Pulse Oximetry 95 95 94 Oxygen Delivery Me thod Room Air Sepsis Recent Feve r Within 48 Hours Sepsis New/Unexpla ined Change in Men patience Status Sepsis Action Take n by Nursing Physical Exam: Physical Exam GENERAL: She is oriented to person, place, and time. She appears well-developed and well-nourished. She does not appear distressed. HENT: Exam performed. -Head: Normocephalic and atraumatic. -Right Ear: External ear normal. No mastoid tenderness. -Left Ear: External ear normal. No mastoid tenderness. -Mouth/Throat: The oropharynx is clear and moist. No trismus in the jaw. No dental abscesses or uvula swelling. No oropharyngeal exudate or tonsillar abscesses. EYES: Conjunctivae and EOM are normal. Pupils are equal, round, and reactive to light. Right eye exhibits no discharge. Left eye exhibits no discharge. No scleral icterus. NECK: Normal range of motion. Neck supple. No JVD present. No spinous process tenderness present. No carotid bruit present. No rigidity. No tracheal deviation and normal range of motion present. No Brudzinski's sign and no Kernig's sign noted. CV: Normal rate, regular rhythm, normal heart sounds and intact distal pulses. There is no peripheral edema. Palpable radial pulses bue. PULM/CHEST: Effort normal and breath sounds normal. No respiratory distress. No stridor. She has no wheezes. She has no rales. -Chest Wall: She exhibits no tenderness. ABD: The abdomen is soft. Bowel sounds are normal. She has no distension. No mass is present. There is no tenderness. There is no rebound, no guarding, no White's sign and no tenderness at McBurney's point. Rovsig negative MUSC/SKEL: Normal range of motion. There is no peripheral edema, tenderness or deformity. LYMPH: No cervical adenopathy. NEURO: She is alert and oriented to person, place, and time. She has normal str ength. No cranial nerve deficit or sensory deficit. Coordination and gait normal. GCS eye subscore is 4. GCS verbal subscore is 5. GCS motor subscore is 6. Cerebellar tests wnl. SKIN: Skin is warm and dry. She is not diaphoretic. PSYCH: She has a normal mood and affect. Behavior is normal. Judgment and thought content normal. Course Course 1605: The patient was evaluated in room B4. A complete history and physical exam was performed Cardiac monitoring: An order was placed for continuous cardiac monitoring. The monitor shows a rate of 80 with sinus rhythm 1740: Vital signs stable. Labs and imaging within normal limits. Given the patient's history of WPW and she is symptomatic with syncope will admit the patient for evaluation by cardiology. [facility] team will be notified. Administered Medications Discontinued Medications Acetaminophen (Acetaminophen 500 Mg Tab) 1,000 mg PO NOW STA Stop: 11/28/20 18:45 Last Admin: 11/28/20 19:05 Dose: 1,000 mg Documented by: [id number] Sertraline HCl (Sertraline Hcl 100 Mg Tablet) 100 mg PO NOW STA Stop: 11/28/20 18:46 Last Admin: 11/28/20 19:05 Dose: 100 mg Documented by: [id number] Medical Decision Making Laboratory Data Result diagrams: 11/28/20 16:16 11/28/20 17:22 Lab Results 11/28/20 11/28/20 11/28/20 Range/Units 16:16 16:16 16:16 WBC 7.83 (4.8-10.8) K/uL RBC 5.17 (4.2-5.4) M/uL Hgb 16.0 (12.0-16.0) g/dL Hct 45.6 (37-47) % MCV 88.2 (80-100) fL MCH 30.9 (25-34) pg MCHC 35.1 (32-36) g/dL RDW Std Deviation 44.2 (36.4-46.3) fL RDW Coeff of Cuong 13.6 (11.5-14.5) % Plt Count 243 (130-400) K/uL MPV 10.1 (7.4-10.4) fL Immature Gran % (Auto) 0.0 % Neut % (Auto) 60.9 % Lymph % (Auto) 27.5 % Gem % (Auto) 7.8 % Eos % (Auto) 3.3 % Baso % (Auto) 0.5 % Neut # (Auto) 4.77 (1.4-6.5) K/uL Lymph # (Auto) 2.15 (1.2-3.4) K/uL Gem # (Auto) 0.61 H (0.11-0.59) K/uL Eos # (Auto) 0.26 (0-0.5) K/uL Baso # (Auto) 0.04 (0-0.2) K/uL Immature Gran # (Auto) 0.00 (0.00-0.02) K/uL PT 9.7 (9.0-12.0) Seconds INR 1.0 (0.9-1.1) APTT 26.7 (21.0-31.0) Seconds PTT Ratio 1.0 Sodium 138 (136-145) mmol/L Potassium (3.5-5.1) mmol/L Chloride 104 (98-107) mmol/L Carbon Dioxide 27 (21-32) mmol/L Anion Gap 6.0 (3-11) BUN 8 (7-18) mg/dl Creatinine 0.92 (0.6-1.2) mg/dl Est Cr Clr Drug Dosing 82.9 ml/min Est GFR ( Amer) 81.8 ml/min Est GFR (Non-Af Amer) 70.6 ml/min BUN/Creatinine Ratio 8.6 L (10-20) Glucose 96 (70-99) mg/dl Calcium 9.6 (8.5-10.1) mg/dl Troponin I < 0.015 (0-0.045) ng/ml Lipase 89 (73-393) U/L COVID-19 Eval Order SARS-CoV-2 (PCR) (Negative) 11/28/20 11/28/20 11/28/20 Range/Units 17:02 17:02 17:22 WBC (4.8-10.8) K/uL RBC (4.2-5.4) M/uL Hgb (12.0-16.0) g/dL Hct (37-47) % MCV (80-100) fL MCH (25-34) pg MCHC (32-36) g/dL RDW Std Deviation (36.4-46.3) fL RDW Coeff of Cuong (11.5-14.5) % Plt Count (130-400) K/uL MPV (7.4-10.4) fL Immature Gran % (Auto) % Neut % (Auto) % Lymph % (Auto) % Gem % (Auto) % Eos % (Auto) % Baso % (Auto) % Neut # (Auto) (1.4-6.5) K/uL Lymph # (Auto) (1.2-3.4) K/uL Gem # (Auto) (0.11-0.59) K/uL Eos # (Auto) (0-0.5) K/uL Baso # (Auto) (0-0.2) K/uL Immature Gran # (Auto) (0.00-0.02) K/uL PT (9.0-12.0) Seconds INR (0.9-1.1) APTT (21.0-31.0) Seconds PTT Ratio Sodium (136-145) mmol/L Potassium 4.0 (3.5-5.1) mmol/L Chloride (98-107) mmol/L Carbon Dioxide (21-32) mmol/L Anion Gap (3-11) BUN (7-18) mg/dl Creatinine (0.6-1.2) mg/dl Est Cr Clr Drug Dosing ml/min Est GFR ( Amer) ml/min Est GFR (Non-Af Amer) ml/min BUN/Creatinine Ratio (10-20) Glucose (70-99) mg/dl Calcium (8.5-10.1) mg/dl Troponin I (0-0.045) ng/ml Lipase (73-393) U/L COVID-19 Eval Order Covid19 at [facility] SARS-CoV-2 (PCR) NEGATIVE (Negative) Imaging Data Radiologist's Impression: Chest X-Ray 11/28/20 16:05 XR chest 1V portable CLINICAL HISTORY: Chest Pain COMPARISON STUDY: July 18, 2019 FINDINGS: No pneumothorax. No pleural effusion. No large infiltrates or consolidative lesions are seen. Reticular prominence of pulmonary interstitium is seen in bilateral bases without evidence of large infiltrates or consolidative lesions. Cardiomediastinal silhouette is within normal limits in size. No significant pulmonary vascular congestion.. Osseous structures: unremarkable IMPRESSION: 1. Slight reticular prominence within bilateral bases. ACT 112: Negative or not required by law. The above report was generated using voice recognition software. It may contain grammatical, syntax or spelling errors. Electronically signed by: Allie Ocampo DO 11/28/2020 4:[address] 11/28/20 16:05 CT head/brain wo con CLINICAL HISTORY: fall on eliquis COMPARISON STUDY: No previous studies for comparison. TECHNIQUE: Axial CT of the brain is performed from the vertex to the skull base. IV contrast was not administered for this examination. A dose lowering technique was utilized adhering to the principles of ALARA. CT DOSE: 614.27 mGy.cm FINDINGS: No intra or extra-axial mass lesions are visualized. There is no CT evidence of acute cortical infarction. There is no evidence of midline shift. There is no acute hemorrhage. No acute depressed calvarial fractures are visualized. There are patchy white matter hypodensities likely on a small vessel basis. There is no evidence of pathologic ventricular dilatation. There is no evidence of acute sinusitis IMPRESSION: No acute intracranial hemorrhage, no midline shift or space occupying lesions. No acute depressed skull fractures are seen. ACT 112: Negative or not required by law. The above report was generated using voice recognition software. It may contain grammatical, syntax or spelling errors. Electronically signed by: Allie Ocampo DO 11/28/2020 4:52 PM ECG Data Indication: chest pain Rate (beats per minute): 82 Rhythm: normal sinus Findings: no ST depression, no ST elevation and no prolonged QT MDM Narrative Vital signs stable. Labs and imaging within normal limits. Given the patient's history of WPW and she is symptomatic with syncope will admit the patient for evaluation by cardiology. [facility] hospitalist team will be notified. Impression & Plan Syncope, Behgu-Wdngpzyic-Burzp (WPW) syndrome Discharge Plan Visit Data Chief Complaint: Arrhythmia/Palpitations Stated Complaint: HIGH HEART RATE,FELL AND HIT HEAD ED Provider: Cristobal Reyna Discharge Problem: Syncope, Cjgkp-Qkuftjguc-Fjwbk (WPW) syndrome Patient Disposition: Being Evaluated by Hospitalist Forms Stand Alone Forms: My [facility] Prescriptions Prescriptions: No Action famotidine 20 mg tablet 20 mg PO BID Qty: 60 RF: 11 diltiazem HCl 30 mg tablet 30 mg PO BID Qty: 60 RF: 5 melatonin 5 mg capsule 5 mg PO .QHS Qty: 30 RF: 0 Eliquis 5 mg tablet 5 mg PO BID Qty: 60 RF: 5 Stiolto Respimat 2.5-2.5 mcg/actuation mist 2 puff inhalation QAM RF: 0 albuterol sulfate [ProAir HFA] 90 mcg/actuation HFA aerosol inhaler 2 inh INH Q6H PRN (Reason: Shortness Of Breath Or Wheezing) Qty: 18 RF: 3 hydroxyzine HCl 25 mg tablet 25 mg PO TID Qty: 90 RF: 11 cetirizine [Zyrtec] 10 mg Tablet 10 mg PO QAM RF: 0 sertraline 100 mg tablet 100 mg PO QDD RF: 0 Referrals Referrals: Mili Raines CRNP [Primary Care Provider] - Discharge Problem: Syncope Qualifiers: Syncope type: unspecified Qualified Code(s): R55 - Syncope and collapse
[2020-11-28] MEDS ORDERED: ACETAMINOPHEN 325 MG TAB PO PRN (22:36)
[2020-11-28] MEDS ORDERED: MELATONIN 3 MG TAB PO SCH (22:36)
[2020-11-28] MEDS ORDERED: ONDANSETRON INJ 2 MG/ML 2 ML VIAL IV PRN (22:36)
[2020-11-28] MEDS ORDERED: ALBUTEROL HFA 8 GM INHALER INH PRN (23:19)
[2020-11-28] MEDS: FAMOTIDINE 20 MG TAB PO SCH (23:58)
[2020-11-28] MEDS: dilTIAZem HCL 30 MG TAB PO SCH (23:58)
[2020-11-28] MEDS: hydrOXYzine HCl 25 MG TAB PO SCH (23:58)
[2020-11-28] MEDS: APIXABAN 5 MG TABLET PO SCH (23:59)
[2020-11-29 06:18] LABS: Basophils # (auto) 0.03 K/uL (0-0.2); Basophils % (auto) 0.4 %; Eosinophils # (auto) 0.31 K/uL (0-0.5); Eosinophils % (auto) 4.3 %; Hematocrit (blood only) 40.4 % (37-47); Hemoglobin 14.1 g/dL (12.0-16.0); Immature Granulocytes # (auto) 0.01 K/uL (0.00-0.02); Immature Granulocytes % (auto) 0.1 %; Lymphocytes # (auto) 3.21 K/uL (1.2-3.4); Lymphocytes % (auto) 44.3 %; Mean Corpuscular Hgb Conc 34.9 g/dL (32-36); Mean Corpuscular Volume 88.8 fL (80-100); Mean Platelet Volume 10.2 fL (7.4-10.4); Monocytes % (auto) 6.9 %; Neutrophils # (auto) 3.19 K/uL (1.4-6.5); Platelet Count 212 K/uL (130-400); RDW Coefficient of Variation 13.8 % (11.5-14.5); RDW Standard Deviation 44.8 fL (36.4-46.3); Red Blood Count 4.55 M/uL (4.2-5.4); White Blood Count 7.25 K/uL (4.8-10.8)
[2020-11-29 06:40] LABS: BUN Creatinine Ratio 16.1 (10-20); Calcium 8.8 mg/dl (8.5-10.1); Est GFR (African American) 87.5 ml/min; Est GFR (Non-African American) 75.5 ml/min; Magnesium 2.2 mg/dl (1.8-2.4); Potassium 3.9 mmol/L (3.5-5.1)
[2020-11-29 06:50] LABS: Thyroid Stimulating Hormone 5.41 uIu/ml (0.300-4.500)
[2020-11-29 07:07] LABS: T4 Free Thyroxine 0.94 ng/dl (0.8-1.6)
[2020-11-29] MEDS: hydrOXYzine HCl 25 MG TAB PO SCH ×2 (07:59→14:12)
[2020-11-29] MEDS: APIXABAN 5 MG TABLET PO SCH (07:59)
[2020-11-29] MEDS: FAMOTIDINE 20 MG TAB PO SCH (07:59)
[2020-11-29] MEDS: dilTIAZem HCL 30 MG TAB PO SCH ×2 (08:33→10:41)
[2020-11-29] MEDS ORDERED: CETIRIZINE HCL 10 MG TABLET PO SCH (09:00)
[2020-11-29] MEDS ORDERED: UMECLIDINIUM/VILANTEROL 62.5/25MCG 7 PUFFS/INHALER INH SCH (09:00)
--- NOTE | 2020-11-29 09:53 | Hospitalist Progress Note ---
Date of Service November 29, 2020 Assessment & Plan (1) Syncope: Patient with syncope and collapse today striking her head - Likely cardiac related following vasodilation after shower - C-spine clinically cleared - see physical exam - Patient instructed to call for assistance any time she needs to get up while on the floor - (2) Kdgvk-Azhihpvcy-Pwgbw (WPW) syndrome: AVNRT- 2019 - Continue Diltiazem - Continue Eliquis for PE - TSH in morning (3) Hypertriglyceridemia: Not on any medications as she is trying dietary management - lipid panel shows a triglyceride of 499 total cholesterol 246 HDL 23 (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 Carrillo in the future. - [facility]mission and Anticipated Discharge Date Admission Date: November 28, 2020 Results & Data Results & Data ([facility]) Vital Signs (Past 12 Hours) Vital Signs Temp Pulse Pulse Pulse Resp BP Pulse Ox 11/29/20 07:44 97.7 F 74 18 97/70 L 94 11/29/20 03:08 98.8 F 89 22 96/60 L 92 11/29/20 00:00 97 H 11/28/20 22:22 98.8 F 97 H 25 H 133/84 95 11/28/20 22:00 88 16 115/66 98 PG Care Time/CCT Total # of Minutes Spent Total Time Spent with Patient: Total time spent is greater than 50% in coordination of care (as documented) at patient's floor/unit and/or counseling patient: Coding Diagnoses Syncope R55 Syncope type: unspecified Fuigd-Rybemzyql-Viouu (WPW) syndrome I45.6 Hypertriglyceridemia E78.1 COPD with emphysema J43.9 Emphysema type: unspecified Current smoker F17.200 Pulmonary nodules R91.8 Urticaria L50.9 (1) Syncope Syncope type: unspecified Qualified Code(s): R55 - Syncope and collapse (2) COPD with emphysema Emphysema type: unspecified Qualified Code(s): J43.9 - Emphysema, unspecified
--- NOTE | 2020-11-29 15:28 | Cardiology Consultation ---
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 I would at this juncture recommend adding anti-arrhythmic flecainide 50mg BID in addition to continuing the diltiazem 30mg BID She will follow up in my office as scheduled in Jan for discharge home today Present on Admission?: Yes History of Present Illness Reason for Consultation: SVT and syncope Requesting Physician: hospitalist Attending Physician: Shawn Pan MD History of Present Illness Pt has known SVT presumed AVRT due to WPW pattern on EKG. For the most part the SVT has been controlled with diltiazem. She maybe has 1-2 episodes a month lasting 5 minutes without any associated symptoms. Until the day of admission she had a prolonged episode lasting hour so she took a shower realizing she would have to go the the ED; it was at that point she got lightheaded and dizzy and passed out hitting the frontal area of her head on the right. LOC was brief. By the time she got to the ED she was back in SR. She had 5 minutes of SVT this morning. Allergies Allergy/AdvReac Type Severity Reaction Status Date / Time metoprolol Allergy Intermediate Hives Verified 11/28/20 17:32 Home Medications Medication Instructions Recorded Confirmed Type hydroxyzine HCl 25 mg tablet 25 mg PO TID #90 tab 08/23/19 11/28/20 Rx famotidine 20 mg tablet 20 mg PO BID #60 tab 10/14/19 11/28/20 Rx diltiazem HCl 30 mg tablet 30 mg PO BID #60 tab 04/24/20 11/28/20 Rx albuterol sulfate 90 mcg/actuation 2 inh INH Q6H PRN #18 g 09/18/20 11/28/20 Rx aerosol inhaler apixaban 5 mg tablet 5 mg PO BID #60 tab 10/04/20 11/28/20 Rx melatonin 5 mg capsule 5 mg PO .QHS #30 cap 10/04/20 11/28/20 Rx cetirizine [Zyrtec] 10 mg PO QAM 11/28/20 11/28/20 History sertraline 100 mg PO QDD 11/28/20 11/28/20 History Patient History Medical History Anxiety Impetigo Insomnia PSVT (paroxysmal supraventricular tachycardia) Pulmonary embolism Tachycardia Urticaria Ygtzf-Lxmlqtqxv-Jlftx (WPW) syndrome Continues to have brief episode; mildly symptomatic, ok to give diltiazem 30mg BID and change to long acting upon discharge Family History Mother Heart disease Diabetes Hypertension Myocardial infarction Father Accidental Sister Heart disease arrhythmia, ? CHF Myocardial infarction Sister Heart disease valvular heart disease Brother Heart disease CHF Other Allergies Denies family history of Tuberculosis Ovarian cancer Prostate cancer Breast cancer Emphysema, unspecified Colorectal cancer Lung disease Asthma Social History Smoking Status: Current every day smoker Tobacco Type: Cigarettes packs per day: 0.5; Cigarettes Per Day: 5 a day; Second Hand Exposure: No; Do You Dip or Chew Tobacco: No; Tobacco Cessation Education Requested by Patient: No Hx Alcohol Use: No Hx Substance Use: No Preferred Language: Belarusian Communication Ability: Effective Visual Impairment: No Limitations Hearing Ability: Normal Residential Tech Required: No Beliefs That Will Affect Care: None marital status: Current Living Situation: Spouse Current Living Situation Comment: lives with current occupational status: unemployed Other Information That Helps Us Care for You: No Feels Safe at Home: Yes Safety Concerns: Feels Safe At This Time Childhood Exposure to Second-Hand Smoke: Yes Dental Care, Regularly: No Physical Activity Frequency: Does not Exercise Seatbelt Use: always Sunscreen Use: No Assistive Devices: None Review of Systems Review of Systems: All systems reviewed & are unremarkable except as noted in HPI & below Physical Exam Physical Exam: aaox3, NAD NC/AT, EOMI Supple No JVD Nrl S1/S2, No murmur CTA b/l no w/r/r soft nt/nd no LE edema b/l skin intact no focal deficits normal thought Results & Data ([facility]) Vital Signs (Past 12 Hours) Vital Signs Temp Pulse Pulse Resp BP BP Pulse Ox 11/29/20 15:15 36.9 C 73 18 105/70 95 11/29/20 14:00 76 11/29/20 11:37 37.1 C 80 20 98/64 L 95 11/29/20 10:24 82 118/78 11/29/20 09:56 71 11/29/20 07:44 36.5 C 74 18 97/70 L 94 Abnormal Lab Results 11/28/20 11/28/20 11/28/20 16:16 16:16 16:16 WBC 7.83 RBC 5.17 Hgb 16.0 Hct 45.6 MCV 88.2 MCH 30.9 MCHC 35.1 RDW Std Deviation 44.2 RDW Coeff of Cuong 13.6 Plt Count 243 MPV 10.1 Immature Gran % (Auto) 0.0 Neut % (Auto) 60.9 Lymph % (Auto) 27.5 Clarke % (Auto) 7.8 Eos % (Auto) 3.3 Baso % (Auto) 0.5 Neut # (Auto) 4.77 Lymph # (Auto) 2.15 Clarke # (Auto) 0.61 H Eos # (Auto) 0.26 Baso # (Auto) 0.04 Immature Gran # (Auto) 0.00 PT 9.7 INR 1.0 APTT 26.7 PTT Ratio 1.0 Sodium 138 Potassium Chloride 104 Carbon Dioxide 27 Anion Gap 6.0 BUN 8 Creatinine 0.92 Est Cr Clr Drug Dosing 82.9 Est GFR ( Amer) 81.8 Est GFR (Non-Af Amer) 70.6 BUN/Creatinine Ratio 8.6 L Glucose 96 Calcium 9.6 Magnesium Troponin I < 0.015 Triglycerides Cholesterol LDL Cholesterol, Calc VLDL Cholesterol, Calc HDL Cholesterol Cholesterol/HDL Ratio Lipase 89 TSH Free T4 COVID-19 Eval Order SARS-CoV-2 (PCR) 11/28/20 11/28/20 11/28/20 17:02 17:02 17:22 WBC RBC Hgb Hct MCV MCH MCHC RDW Std Deviation RDW Coeff of Cuong Plt Count MPV Immature Gran % (Auto) Neut % (Auto) Lymph % (Auto) Clarke % (Auto) Eos % (Auto) Baso % (Auto) Neut # (Auto) Lymph # (Auto) Clarke # (Auto) Eos # (Auto) Baso # (Auto) Immature Gran # (Auto) PT INR APTT PTT Ratio Sodium Potassium 4.0 Chloride Carbon Dioxide Anion Gap BUN Creatinine Est Cr Clr Drug Dosing Est GFR ( Amer) Est GFR (Non-Af Amer) BUN/Creatinine Ratio Glucose Calcium Magnesium Troponin I Triglycerides Cholesterol LDL Cholesterol, Calc VLDL Cholesterol, Calc HDL Cholesterol Cholesterol/HDL Ratio Lipase TSH Free T4 COVID-19 Eval Order Covid19 at [facility] SARS-CoV-2 (PCR) NEGATIVE 11/28/20 11/28/20 11/29/20 17:22 22:43 05:48 WBC 7.25 RBC 4.55 Hgb 14.1 Hct 40.4 MCV 88.8 MCH 31.0 MCHC 34.9 RDW Std Deviation 44.8 RDW Coeff of Cuong 13.8 Plt Count 212 MPV 10.2 Immature Gran % (Auto) 0.1 Neut % (Auto) 44.0 Lymph % (Auto) 44.3 Clarke % (Auto) 6.9 Eos % (Auto) 4.3 Baso % (Auto) 0.4 Neut # (Auto) 3.19 Lymph # (Auto) 3.21 Clarke # (Auto) 0.50 Eos # (Auto) 0.31 Baso # (Auto) 0.03 Immature Gran # (Auto) 0.01 PT INR APTT PTT Ratio Sodium Potassium Chloride Carbon Dioxide Anion Gap BUN Creatinine Est Cr Clr Drug Dosing Est GFR ( Amer) Est GFR (Non-Af Amer) BUN/Creatinine Ratio Glucose Calcium Magnesium 2.2 Troponin I < 0.015 Triglycerides Cholesterol LDL Cholesterol, Calc VLDL Cholesterol, Calc HDL Cholesterol Cholesterol/HDL Ratio Lipase TSH Free T4 COVID-19 Eval Order SARS-CoV-2 (PCR) 11/29/20 05:48 WBC RBC Hgb Hct MCV MCH MCHC RDW Std Deviation RDW Coeff of Cuong Plt Count MPV Immature Gran % (Auto) Neut % (Auto) Lymph % (Auto) Clarke % (Auto) Eos % (Auto) Baso % (Auto) Neut # (Auto) Lymph # (Auto) Clarke # (Auto) Eos # (Auto) Baso # (Auto) Immature Gran # (Auto) PT INR APTT PTT Ratio Sodium 140 Potassium 3.9 Chloride 109 H Carbon Dioxide 24 Anion Gap 7.0 BUN 14 D Creatinine 0.87 Est Cr Clr Drug Dosing 88.0 Est GFR ( Amer) 87.5 Est GFR (Non-Af Amer) 75.5 BUN/Creatinine Ratio 16.1 Glucose 97 Calcium 8.8 Magnesium 2.2 Troponin I Triglycerides 499 H Cholesterol 246 H LDL Cholesterol, Calc VLDL Cholesterol, Calc HDL Cholesterol 23 Cholesterol/HDL Ratio 11 Lipase TSH 5.410 H Free T4 0.94 COVID-19 Eval Order SARS-CoV-2 (PCR) ECGS: 11/28/2020:SR 82bpm Echo: 06/2019:EF normal Cardiac CT: 2019 calcium score 48 no significant disease (1) Syncope Syncope type: unspecified Qualified Code(s): R55 - Syncope and collapse
[2020-11-29] MEDS ORDERED: SERTRALINE HCL 100 MG TABLET PO SCH (16:30)
[2020-11-29] MEDS ORDERED: FLECAINIDE ACETATE 100 MG TABLET PO ONE (16:40)
--- NOTE | 2020-11-29 17:17 | Discharge Summary ---
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 Ling VQ-Wveujfcvyfyj-Dvzxwioal. She was started on Metoprolol, she then developed hives and was changed to Diltiazem. In July 2019 she presented with hives/welts and edema- where she incidentally was found to have a pulmonary embolism and was started on Eliquis. Patient has periods of tachycardia and palpitations that are usually short lived and they usually go away, however this morning the patient was watching TV and felt her heart rate start racing. She put on her FITBIT and noticed her HR at 150's, this was associated with dizziness, chest pressure and nausea. She subsequently went into shower to see if this would make her feel better, this did not and upon exiting the shower she felt everything go black and passed out. She awoken on the floor, and has a resulting abrasion to her right forehead and small hematoma. In the EMD the patient had a head CT done that is negative for intracranial bleed. The patient denies any neck pain or midline cervical tenderness. CXR with no acute process and ECG of NSR with no acute dynamic changes. Patient will be admitted for telemetry monitoring, frequent neurological examinations, monitoring of Troponin I, and electrolytes. Patient has not received her COVID vaccine and is COVID Negative on admission. 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 Ling Discharge Exam The patient appeared well Vital signs as documented. Lungs are clear to auscultation and appear unlabored Cardiac exam, Rhythm is regular.. No murmurs, rubs or gallops. Abdominal exam reveals normal bowel sounds, soft non tender, no masses Extremities are nonedematous and both pedal pulses are normal. Neurologic exam is alert and oriented, no focal loss of strength or sensation Skin is without bruises or rashes Psychologically is without concerns for anxiety or depression. Discharge Data Allergies Allergy/AdvReac Type Severity Reaction Status Date / Time metoprolol Allergy Intermediate Hives Verified 11/28/20 17:32 Consultations 11/28/20 17:41 ED Decision to Admit Stat 11/28/20 22:36 Consult Cardiology Routine Ordered Studies 11/28/20 16:05 CT head/brain wo con Stat Hospital Course (1) Syncope: Patient with syncope and collapse today striking her head - Likely cardiac related following vasodilation after shower - C-spine clinically cleared -CT head unremarkable for internal injury -Likely arrhythmia related - (2) Xsnqt-Kimkgdgli-Yreyp (WPW) syndrome: AVNRT- 2020 - Continue Diltiazem 30 twice daily electrophysiology is added flecainide 50 twice daily to the additional medications listed here - Continue Eliquis for PE - TSH slight elevation but normal T4 (3) Hypertriglyceridemia: Not on any medications as she is trying dietary management - lipid panel shows a triglyceride of 499 total cholesterol 246 HDL 23 (4) COPD with emphysema: Continues to smoke-smoking cessation counseling offered - Continue albuterol Q6 prn - Continue tiotropium/olodaterol (5) Current smoker: As above smoking cessation counseling given (6) Pulmonary nodules: Multiple follows with pulmonary with periodic imaging- no acute needs (7) Urticaria: Continues with multispecialties approaches - She stopped her Xolair shots secondary to joint pain - Hydroxyzine for her insomnia and urticaria - due to follow up with Dr. Carrillo in the future. - Continue Zyrtec Total Time Total Time Spent Total Time Spent (In Minutes): It required greater than 30 minutes to prepare this patient for discharge Discharge Plan Discharge Items Patient Disposition: Home - Self-Care Reason For Visit: TACHYCARDIA WITH SYNCOPE Discharge Diagnosis: atrial re entrant tachycadia Activity: Per Instructions section Activity Comment: gradually increase activity Non-emergency contact: Fashion Coordinator Call non-emergency contact if: you have any medication questions and your symptoms worsen Follow-up/Referrals: Mili Raines CRNP [Primary Care Provider] - Diet: Regular Diet Comment: avoid caffiene Addtl Attending Provider Instructions: please follow up with Dr Ling take your new medicine in addition to your diltiazem, twice a day always return if you feel worse Everything you do to improve your health will also help your heart. Strongly encourage you to consider quitting smoking. There are some ylal-pmy-iqgimcr mckenzie ns they can help you quit smoking including nicotine gum and nicotine patches. You can also talk to your primary care provider about medications that can assist you to this endeavor however deciding on a firm day to quit and having your friends and family support you is also with very effective means. He also have identified some elevation of your cholesterol if you have not yet tried to restrict her diet making yourself having a low-fat diet I encouraged her to do so. If you have already been on a low-fat diet you may discuss with your primary care provider strategies or medications you can use to keep your cholesterol in a more favorable location to prevent future health problems related to your higher cholesterol (triglycerides) Pending Studies at Discharge: No Stand-Alone Forms: My [facility] [employer], Smoking Cessation Medications and DC Order Prescriptions: New flecainide 100 mg Tablet 50 mg PO Q12 Qty: 60 RF: 5 Continued famotidine 20 mg tablet 20 mg PO BID Qty: 60 RF: 11 diltiazem HCl 30 mg tablet 30 mg PO BID Qty: 60 RF: 5 melatonin 5 mg capsule 5 mg PO .QHS Qty: 30 RF: 0 Eliquis 5 mg tablet 5 mg PO BID Qty: 60 RF: 5 Stiolto Respimat 2.5-2.5 mcg/actuation mist 2 puff inhalation QAM RF: 0 albuterol sulfate [ProAir HFA] 90 mcg/actuation HFA aerosol inhaler 2 inh INH Q6H PRN (Reason: Shortness Of Breath Or Wheezing) Qty: 18 RF: 3 hydroxyzine HCl 25 mg tablet 25 mg PO TID Qty: 90 RF: 11 cetirizine [Zyrtec] 10 mg Tablet 10 mg PO QAM RF: 0 sertraline 100 mg tablet 100 mg PO QDD RF: 0 Discharge Orders: Discharge Order (Routine); Ordered 11/29/20 Ordered By: Shawn Pan Admission Data Admit Date/Time: 11/28/20 20:42 Attending Provider: Shawn Pan Admit Provider: Lee Baig Primary Care Provider: Mili Raines Other Providers: Sami Torre ; Rob Dozier Coding Level of Care Code D/C Day Management >30 mins Diagnoses Syncope R55 Syncope type: unspecified Zxkgu-Nqkkdumup-Jockp (WPW) syndrome I45.6 Hypertriglyceridemia E78.1 COPD with emphysema J43.9 Emphysema type: unspecified Current smoker F17.200 Pulmonary nodules R91.8 Urticaria L50.9
[2020-11-30] MEDS ORDERED: FLECAINIDE ACETATE 100 MG TABLET PO SCH (07:00)
== END 2020-11-29 18:54 | disposition home or self-care (01) | DRG 310 ==
LOC: ED 14:13 → 2S 20:42 → SUATTDRO 20:42 → 2S 22:00

== ENCOUNTER 2024-05-18 05:42 | Observation (INO) ==
[2024-05-18] MEDS: SODIUM CHLORIDE 0.9% 1,000 ML IV ONE (06:16)
[2024-05-18] MEDS: ONDANSETRON INJ 2 MG/ML 2 ML VIAL IV STA (06:32)
[2024-05-18 06:45] LABS: Basophils # (auto) 0.06 K/uL (0.00-0.20); Basophils % (auto) 0.6 %; Eosinophils # (auto) 0.12 K/uL (0.00-0.50); Eosinophils % (auto) 1.2 %; Hematocrit (blood only) 39.6 % (37.0-47.0); Hemoglobin 13.9 g/dl (12.0-16.0); Immature Granulocytes # (auto) 0.04 K/uL (0.01-0.20); Immature Granulocytes % (auto) 0.4 %; Lymphocytes # (auto) 1.53 K/uL (1.20-3.40); Mean Corpuscular Hemoglobin 30.8 pg (25.0-34.0); Mean Corpuscular Hgb Conc 35.1 g/dL (32.0-36.0); Mean Corpuscular Volume 87.6 fL (80.0-100.0); Mean Platelet Volume 10.3 fL (9.4-12.4); Monocytes # (auto) 0.51 K/uL (0.11-0.59); Neutrophils # (auto) 7.91 K/uL (1.40-6.50); Neutrophils % (auto) 77.8 %; Platelet Count 231 K/uL (130-400); RDW Standard Deviation 41.6 fL (36.4-46.3); Red Blood Count 4.52 M/uL (4.20-5.40); White Blood Count 10.17 K/ul (4.8-10.8)
[2024-05-18 06:49] LABS: Albumin Globulin Ratio 1.6 (0.9-2); Albumin Level 4.2 gm/dl (3.4-5.0); BUN Creatinine Ratio 13.3 (10-20); Bilirubin,Total 0.5 mg/dl (0.2-1.0); Calcium 8.9 mg/dl (8.6-10.3); Creatinine Clr Calc Pharmacy 90.3 ml/min; Globulin 2.6 gm/dl (2.5-4.0); Magnesium 1.8 mg/dl (1.7-2.4); Potassium 3.9 mmol/L (3.5-5.1); Total Protein 6.8 gm/dl (6.0-8.3)
[2024-05-18] MEDS: DICYCLOMINE HCL 10 MG/ML 2 ML AMP/VIAL IM ONE (07:37)
[2024-05-18] MEDS: ACETAMINOPHEN 1,000 MG/100 ML VIAL IV STA (07:37)
[2024-05-18 07:46] LABS: Appearance Urine Clear (Clear); Bacteria Urine Automated None Seen (None Seen); Bilirubin Urine Negative (Negative); Blood Urine Negative (Negative); Cast Urine Automated 0-2 /lpf (0-2); Color Urine Yellow; Glucose Urine UA Negative (Negative); Ketones Urine Negative (Negative); Leukocyte Esterase Urine Negative (Negative); Nitrite Urine Negative (Negative); Protein Urine Trace (Negative); RBC Urine Automated 0-2 /hpf (0-2); Specific Gravity Urine 1.024 (1.000-1.030); Urobilinogen Urine Negative (Negative); WBC Urine Automated 0-5 /hpf (0-5)
--- NOTE | 2024-05-18 07:48 | Emergency Department Note ---
Impression & Plan Chronic cholecystitis with calculus, Upper abdominal pain, Nausea and vomiting ED Provider Note NAME: KRISHNA ISSA AGE: 58 SEX: F : 1965 ARRIVES VIA: Walk-In. 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 She had a similar flare of symptoms on Friday after eating [employer]. She reports she did have relief of her nausea abdominal pain yesterday but did have loose stool. She reports some mild cough and congestion and feels pain in her abdomen when she breathes but denies significance of breath. She denies any fevers. Denies urinary symptoms. Patient reports she was seen in this emergency department in January and had CT and ultrasound imaging which demonstrated gallstones and an enlarged common bile duct. She understands that it was recommended she have an outpatient ERCP but admits that she left this fall by the wayside as she understood it would be several thousand dollars [id number] even with her insurance. She also understands that she has to seek out a provider who will be able to do this procedure. On evaluation the patient is fatigued appearing no distress, afebrile blood pressure in the 150/90s medicines otherwise stable. She appears clinically dry. She has mild upper abdominal tenderness without guarding or rebound. EKG without overt acute ischemia. CXR negative for acute cardiopulmonary process per my personal preliminary review/interpretation. WBC, H/H and platelets normal limits. There is no left shift. Chemistry without metabolic acidosis. Electrolytes unremarkable. High-sensitivity troponin 4.4, within normal limits. LFTs are normal including normal total and direct bilirubin as well as AST, ALT and alk phos. Lipase is not elevated. CTA of the chest was negative for PE or pneumonia. Emphysema is described. CT of the abdomen pelvis demonstrates cholelithiasis with gallbladder wall thickening which is similar to prior CT in October 2022 and so findings may reflect chronic cholecystitis. There was no evidence of ductal dilatation on this study. Case discussed with Hal Conde, General surgery MANAGER RELIABILITY with Dr. Damian, General surgery. Appreciate consultation, bedside evaluation, and recommendations. Recommends admitted to the medicine service for management of comorbidities and surgical clearance. They will plan to take the patient to the OR during his hospitalization for cholecystectomy. Agrees with antibiotics. Ceftriaxone and metronidazole were ordered. Case was discussed with BRETT Morejon PAC, with BRETT Pugh hospitalist who will evaluate the patient for admission. Further management per admitting team. Triage Nursing notes reviewed and agree them. Prior/external medical records reviewed Vital Signs: reviewed Differential diagnosis: Gastroenteritis, food borne illness, infections, appendicitis, diverticulitis, inflammatory bowel disease, obstruction, GI bleed, biliary pathology, volvulus, as well as other pathologies. ER treatment provided: See below. Diagnostics interpreted by me: ECG: Normal sinus rhythm, 70 bpm, no ectopy, no overt ST elevation or depression, QTc 455 QRS 74. Cardiac Monitoring: An order for continuous cardiac monitoring was placed and demonstrated Normal sinus rhythm, 70 bpm, ~5s episode of nonsustained SVT. Laboratory studies: See below Imaging studies: See below Consultation(s): Hal Conde General surgery MANAGER RELIABILITY with Dr. Damian, General surgery. BRETT Morejon PAC, with Dr. Sosa [facility] hospitalist. 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 She had a similar flare of symptoms on Friday after eating [employer]. She reports she did have relief of her nausea abdominal pain yesterday but did have loose stool. She reports some mild cough and congestion and feels pain in her abdomen when she breathes but denies significance of breath. She denies any fevers. Denies urinary symptoms. Patient reports she was seen in this emergency department in January and had CT and ultrasound imaging which demonstrated gallstones and an enlarged common bile duct. She understands that it was recommended she have an outpatient ERCP but admits that she left this fall by the wayside as she understood it would be several thousand dollars [id number] even with her insurance. She also understands that she has to seek out a provider who will be able to do this procedure. ROS: See above HPI for pertinent positives & negatives. A total of 10 systems reviewed and were otherwise negative. VITALS:See Below PHYSICAL EXAMINATION: GENERAL: Awake, alert, fatigued-appearing, in no distress, BMI 26.1. HENT: Normocephalic, atraumatic. Oropharynx with dry mucous membranes and otherwise unremarkable. EYES: Normal conjunctiva. Sclera non-icteric. NECK: Supple. No nuchal rigidity. FROM. No JVD. RESPIRATORY: Clear to auscultation. CARDIAC: Regular rate, normal rhythm. Extremities warm and well perfused. Pulses equal. ABDOMEN: Soft, non-distended. Mild upper abdominal tenderness to palpation. No rebound or guarding. MUSCULOSKELETAL: Chest examination reveals no tenderness. The back is symmetrical on inspection without obvious abnormality. There is no CVA tenderness to palpation. No joint edema. LOWER EXTREMITIES: Calves are equal size bilaterally and non-tender. No edema. No discoloration. NEURO: Normal sensorium. No sensory or motor deficits noted. SKIN: No rash or jaundice noted. Yonas Pacheco MD Past Med/Surg History Problem List (Updated 05/18/24 @ 16:27 by Yonas Pacheco MD) Nausea and vomiting (Acute) Upper abdominal pain (Acute) History of pulmonary embolism Tobacco use Chronic cholecystitis with calculus (Acute) Statin intolerance Myalgia due to statin Dyslipidemia (Chronic) No pertinent past surgical history Tinea versicolor (Acute) On statin therapy due to risk of future cardiovascular event (Chronic) Blurred vision, bilateral Vision changes Hypertriglyceridemia (Chronic) Health care maintenance Elevated TSH (Acute) Exertional shortness of breath Current smoker (Chronic) COPD with emphysema (Chronic) Pulmonary nodules (Chronic) Thyroid nodule (Chronic) Mast cell disorder Tachycardia (Acute) Tycgc-Kvyadxbqk-Tamxs (WPW) syndrome (Acute) Anxiety (Chronic) Insomnia Urticaria (Chronic) Pulmonary embolism (Chronic) Medical History Impetigo Family History Mother Heart disease Diabetes Hypertension Myocardial infarction Father Accidental Sister Heart disease arrhythmia, ? CHF Myocardial infarction Sister Heart disease valvular heart disease Brother Heart disease CHF Other Allergies Denies family history of Tuberculosis Ovarian cancer Prostate cancer Breast cancer Emphysema, unspecified Colorectal cancer Lung disease Asthma Social History Smoking Status: Current every day smoker Tobacco Type: Cigarettes packs per day: 0.5; Cigarettes Per Day: 5 a day; Second Hand Exposure: Yes; Do You Dip or Chew Tobacco: Yes; Tobacco Cessation Education Requested by Patient: Yes Hx Alcohol Use: No Hx Substance Use: No Preferred Language: Yakut Communication Ability: Effective Visual Impairment: No Limitations Hearing Ability: Normal Traditional [place] Health Practitioner Required: No Beliefs That Will Affect Care: None marital status: Current Living Situation: Spouse Current Living Situation Comment: [facility] current occupational status: unemployed Other Information That Helps Us Care for You: No Feels Safe at Home: Yes Safety Concerns: Feels Safe At This Time Childhood Exposure to Second-Hand Smoke: Yes Dental Care, Regularly: No Physical Activity Frequency: Does not Exercise Seatbelt Use: always Sunscreen Use: No Assistive Devices: None Allergies Allergies Allergy/AdvReac Type Severity Reaction Status Date / Time metoprolol Allergy Intermediate Hives Verified 01/21/24 18:30 Home Meds Home Medications Medication Instructions Recorded Confirmed cetirizine 10 mg tablet (Zyrtec) 10 mg PO QAM 11/28/20 05/18/24 melatonin 5 mg capsule 5 mg PO HS PRN Sleep 02/15/22 05/18/24 hydroxyzine HCl 25 mg tablet 25 mg PO TID 01/21/24 05/18/24 Previous Rx's Medication Instructions Recorded famotidine 20 mg tablet 20 mg PO BID #60 tabs 12/11/20 sertraline 100 mg tablet 200 mg (2 x 100 mg) PO DAILY #180 10/31/23 tabs apixaban 5 mg tablet (Eliquis) 5 mg PO BID #60 tabs 12/31/23 flecainide 100 mg tablet 50 mg (1/2 x 100 mg) PO Q12 #90 04/15/24 tabs Results & Data (ED) Vital Signs Vital Signs - 24 hr 05/18/24 05:46 05/18/24 06:09 05/18/24 06:28 Temperature 36.5 C Temperature Source Oral Pulse Rate 78 71 Pulse Rate [Apical] 72 Pulse Rhythm [Apical] Regular Pulse Strength [Apical] Normal Respiratory Rate 20 18 Respiratory Effort / Characteristics Non-Labored Non-Labored Respiratory Depth Normal Normal Respiratory Pattern Regular Regular Blood Pressure 166/97 H Blood Pressure [Right Arm] 150/76 H Blood Pressure Mean 120 Blood Pressure Mean [Right Arm] 100 Blood Pressure Position Sitting Blood Pressure Position [Right Arm] Sitting Pulse Oximetry 97 97 Oxygen Delivery Method Room Air Room Air Sepsis New/Unexplained Change in Mental Status No Sepsis Action Taken by Nursing No Action Required 05/18/24 06:28 05/18/24 06:54 05/18/24 08:20 Temperature Temperature Source Pulse Rate Pulse Rate [Apical] 71 71 Pulse Rhythm [Apical] Pulse Strength [Apical] Respiratory Rate 17 18 Respiratory Effort / Characteristics Respiratory Depth Respiratory Pattern Blood Pressure Blood Pressure [Right Arm] 150/90 H 144/85 H Blood Pressure Mean Blood Pressure Mean [Right Arm] 110 104 Blood Pressure Position Blood Pressure Position [Right Arm] Pulse Oximetry 98 97 97 Oxygen Delivery Method Room Air Room Air Room Air Sepsis New/Unexplained Change in Mental Status Sepsis Action Taken by Nursing 05/18/24 09:58 05/18/24 10:17 05/18/24 10:43 Temperature Temperature Source Pulse Rate 68 Pulse Rate [Apical] 94 H 72 Pulse Rhythm [Apical] Pulse Strength [Apical] Respiratory Rate 14 19 Respiratory Effort / Characteristics Respiratory Depth Respiratory Pattern Blood Pressure Blood Pressure [Right Arm] 135/87 141/85 H Blood Pressure Mean Blood Pressure Mean [Right Arm] 103 103 Blood Pressure Position Blood Pressure Position [Right Arm] Pulse Oximetry 98 94 Oxygen Delivery Method Room Air Room Air Sepsis New/Unexplained Change in Mental Status Sepsis Action Taken by Nursing Laboratory Data Attestation: I reviewed the patient's lab results. 05/18/24 06:17 05/18/24 06:17 Lab Results 05/18/24 05/18/24 Range/Units 06:17 07:42 WBC 10.17 (4.8-10.8) K/ul RBC 4.52 (4.20-5.40) M/uL Hgb 13.9 (12.0-16.0) g/dl Hct 39.6 (37.0-47.0) % MCV 87.6 (80.0-100.0) fL MCH 30.8 (25.0-34.0) pg MCHC 35.1 (32.0-36.0) g/dL RDW Std Deviation 41.6 (36.4-46.3) fL RDW Coeff of Cuong 13.0 (11.5-14.5) % Plt Count 231 (130-400) K/uL MPV 10.3 (9.4-12.4) fL Immature Gran % (Auto) 0.4 % Neut % (Auto) 77.8 % Lymph % (Auto) 15.0 % [place] % (Auto) 5.0 % Eos % (Auto) 1.2 % Baso % (Auto) 0.6 % Neut # (Auto) 7.91 H (1.40-6.50) K/uL Lymph # (Auto) 1.53 (1.20-3.40) K/uL [place] # (Auto) 0.51 (0.11-0.59) K/uL Eos # (Auto) 0.12 (0.00-0.50) K/uL Baso # (Auto) 0.06 (0.00-0.20) K/uL Immature Gran # (Auto) 0.04 (0.01-0.20) K/uL Sodium 141 (136-145) mmol/L Potassium 3.9 (3.5-5.1) mmol/L Chloride 109 H (98-107) mmol/L Carbon Dioxide 23 (21-32) mmol/L Anion Gap 9 (3-11) BUN 11 (6-23) mg/dl Creatinine 0.83 (0.6-1.2) mg/dl Est Cr Clr Drug Dosing 90.3 ml/min eGFR 82.17 BUN/Creatinine Ratio 13.3 (10-20) Glucose 124 H (70-99(Fasting)) mg/dl Calcium 8.9 (8.6-10.3) mg/dl Magnesium 1.8 (1.7-2.4) mg/dl Total Bilirubin 0.5 (0.2-1.0) mg/dl Direct Bilirubin 0.0 (0-0.2) mg/dl AST 13 (13-39) U/L ALT 15 (7-52) U/L Alkaline Phosphatase 72 (34-104) U/L Troponin I High Sens 4.4 (0-14) pg/ml Total Protein 6.8 (6.0-8.3) gm/dl Albumin 4.2 (3.4-5.0) gm/dl Globulin 2.6 (2.5-4.0) gm/dl Albumin/Globulin Ratio 1.6 (0.9-2) Lipase 9 L (11-82) U/L Urine Color Yellow Urine Appearance Clear (Clear) Urine pH 5.0 (4.5-7.5) Ur Specific [place] 1.024 (1.000-1.030) Urine Protein Trace H (Negative) Urine Glucose (UA) Negative (Negative) Urine Ketones Negative (Negative) Urine Blood Negative (Negative) Urine Nitrite Negative (Negative) Urine Bilirubin Negative (Negative) Urine Urobilinogen Negative (Negative) Ur Leukocyte Esterase Negative (Negative) Urine WBC (Auto) 0-5 (0-5) /hpf Urine RBC (Auto) 0-2 (0-2) /hpf U Hyaline Cast (Auto) 0-2 (0-2) /lpf U Epithel Cells (Auto) 6-10 H (0-2) /hpf Urine Bacteria (Auto) None Seen (None Seen) Adenovirus (PCR) Not Detected (NotDetected) B. pertussis DNA (PCR) Not Detected (NotDetected) B.parapertussis DNA PCR Not Detected (NotDetected) C. pneumoniae DNA (PCR) Not Detected (NotDetected) Coronavirus OC43 (PCR) Not Detected (NotDetected) Coronavirus HKU1 (PCR) Not Detected (NotDetected) Coronavirus 229E (PCR) Not Detected (NotDetected) SARS-CoV-2 (PCR) Not Detected (NotDetected) Coronavirus NL63 (PCR) Not Detected (NotDetected) Human Metapneumovir PCR Not Detected (NotDetected) Influenza Type A (PCR) Not Detected (NotDetected) Influenza Type B (PCR) Not Detected (NotDetected) M. pneumoniae (PCR) Not Detected (NotDetected) Parainfluenza 1 (PCR) Not Detected (NotDetected) Parainfluenza 2 (PCR) Not Detected (NotDetected) Parainfluenza 3 (PCR) Not Detected (NotDetected) Parainfluenza 4 (PCR) Not Detected (NotDetected) RSV (PCR) Not Detected (NotDetected) Entero/Rhino (PCR) Not Detected (NotDetected) Administered Medications Parenteral Electrolytes (Plasma-Lyte A Ph 7.4) 1,000 mls @ 80 mls/hr IV .[id number] ROBERT Stop: 05/19/24 00:14 Last Admin: 05/18/24 12:58 Dose: 80 mls/hr Documented By: SHARA Discontinued Medications Dicyclomine HCl (Dicyclomine Hcl 10 Mg/Ml 2 Ml Amp/Vial) 20 mg IM NOW ONE Stop: 05/18/24 07:30 Last Admin: 05/18/24 07:37 Dose: 20 mg Documented By: NBA Flecainide Acetate (Flecainide Acetate 100 Mg Tablet) 50 mg PO NOW STA Stop: 05/18/24 12:09 Last Admin: 05/18/24 12:54 Dose: 50 mg Documented By: SHARA Sodium Chloride (Nss) 1,000 mls @ 999 mls/hr IV .[id number] ONE Stop: 05/18/24 06:51 Last Infusion: 05/18/24 07:17 Dose: Infused Documented By: Admin: 05/18/24 06:16 Dose: 999 mls/hr Documented By: CEHMO Acetaminophen (Ofirmev) 1,000 mg in 100 mls @ 400 mls/hr IV NOW STA Stop: 05/18/24 07:41 Last Infusion: 05/18/24 08:26 Dose: Infused Documented By: Admin: 05/18/24 07:37 Dose: 400 mls/hr Documented By: NBA Promethazine HCl (Phenergan) 12.5 mg in 50.5 mls @ 202 mls/hr IV NOW STA Stop: 05/18/24 10:49 Last Infusion: 05/18/24 11:03 Dose: Infused Documented By: Admin: 05/18/24 10:40 Dose: 202 mls/hr Documented By: NBA Ceftriaxone Sodium (Rocephin) 2,000 mg in 50 mls @ 100 mls/hr IV NOW STA Stop: 05/18/24 11:19 Last Infusion: 05/18/24 12:01 Dose: Infused Documented By: Admin: 05/18/24 11:04 Dose: 100 mls/hr Documented By: SHARA Metronidazole (Flagyl) 500 mg in 100 mls @ 100 mls/hr IV NOW STA; Protocol Stop: 05/18/24 11:49 Last Infusion: 05/18/24 12:59 Dose: Infused Documented By: Admin: 05/18/24 12:02 Dose: 100 mls/hr Documented By: SHARA Ioversol (Optiray 320 125ml) 120 ml IV ONCE ONE Stop: 05/18/24 08:12 Last Admin: 05/18/24 08:11 Dose: 120 ml Documented By: MICKEY Ketorolac Tromethamine (Ketorolac Tromethamine 15 Mg/Ml Vial) 10 mg IV NOW ONE Stop: 05/18/24 12:07 Last Admin: 05/18/24 12:18 Dose: 10 mg Documented By: SHARA Nicotine (Nicotine 14 Mg/24 Hr Patch) 1 patch TD NOW STA Stop: 05/18/24 11:35 Last Admin: 05/18/24 12:20 Dose: 1 patch Documented By: SHARA Ondansetron HCl (Ondansetron Inj 2 Mg/Ml 2 Ml Vial) 4 mg IV NOW STA Stop: 05/18/24 06:24 Last Admin: 05/18/24 06:32 Dose: 4 mg Documented By: CHEMO Imaging Data Radiologist's Impression: Abdomen/Pelvis CT 05/18/24 07:27 CT OF THE ABDOMEN AND PELVIS WITH CONTRAST CLINICAL HISTORY: Abdominal pain, nausea, vomiting and diarrhea. COMPARISON STUDY: CT of the abdomen and pelvis November 11, 2022. Right upper quadrant ultrasound January 28, 2024. TECHNIQUE: Following IV administration of 120 mL of Optiray, axial images of the abdomen and pelvis were obtained from the lung bases to the proximal femurs. Images were reviewed in the axial, sagittal, and coronal planes. IV contrast was administered without complication. Automated exposure control was utilized for the study. A dose lowering technique was utilized adhering to the principles of ALARA. FINDINGS: No pneumatosis, free air or portal venous gas is present. There is hepatomegaly and hepatic steatosis. Subcentimeter hypodense lateral segment hepatic lesion is too small to characterize but unchanged since CT of November 11, 2022. This is likely benign. There is a gallstone within the gallbladder. Gallbladder wall thickening is similar to prior CT. There is no pericholecystic inflammation. There is no biliary or pancreatic ductal lesion. Spleen, adrenal glands, kidneys and pancreas are unremarkable. There is no hydronephrosis. Caliber and wall thickness of small and large bowel are normal. The appendix is normal. There is colonic diverticulosis without evidence for acute diverticulitis. Major vasculature is patent. No lymphadenopathy. No fluid collections are present. IMPRESSION: 1. No acute process within the abdomen or pelvis. 2. Cholelithiasis with gallbladder wall thickening, similar to prior CT. This favors chronic cholecystitis. 3. Colonic diverticulosis. No evidence for acute diverticulitis. 4. Normal appendix. No bowel obstruction. No bowel wall thickening. ACT 112: Negative or not required by law. Electronically signed by: Ever Burroughs M.D. 05/18/2024 8:29 AM Chest X-Ray 05/18/24 07:28 EXAM: XR chest 1V portable CLINICAL HISTORY: COUGH JTF TECHNIQUE: An X-ray image of the chest is obtained in AP projection. COMPARISON: 12/06/2020 FINDINGS: Pulmonary Parenchyma: Bilateral prominent bronchovascular markings No evidence of consolidation, collapse, or focal opacities. No pulmonary nodules are identified. No evidence of pleural effusion or pleural thickening. Heart and Mediastinum: Heart size and shape are normal. No mediastinal widening or masses. No hilar or mediastinal lymphadenopathy. Bony Thorax: Bony thorax appears intact without fractures or deformities. Soft Tissues: Soft tissues overlying the chest wall are unremarkable. IMPRESSION: 1. Bilateral prominent bronchovascular markings 2. No acute cardiopulmonary abnormalities are identified. Electronically signed by Ruth Islas 05-18-2024 08:09 AM Chest CTA 05/18/24 07:54 CT angio chest PE protocol CT DOSE: 1873.06 mGy.cm HISTORY: 58 years-old Female with cp, sob, vomiting, h/o PE, r/o pe. Acute chest pain with shortness of breath TECHNIQUE: Multiple CTA images of the chest were obtained after the intravenous administration of 120 ml Optiray. Coronal and sagittal MIPS were obtained from the axial data set and were submitted for review. All measurements were obtained according to NASCET criteria. A dose lowering technique was utilized adhering to the principles of ALARA. COMPARISON: CT abdomen and pelvis of same day, chest CT 05/06/2022 FINDINGS: CTA: Heart is normal in size. There is no pericardial effusion. Mild coronary artery calcifications. Unremarkable thoracic aorta. No pulmonary emboli are identified. CT CHEST: There is a small peripherally calcified left-sided thyroid nodule measuring approximately 10 mm. No lymphadenopathy. No pneumothorax, pleural effusion or pulmonary edema. Mild/moderate pulmonary emphysema. Mild subsegmental bibasilar atelectasis. Stable low suspicion scattered solid pulmonary nodules are again noted measuring up to 4 mm which are likely benign. Central airways appear patent. CT abdomen and pelvis is dictated separately. No acute fracture identified. IMPRESSION: 1. Emphysema without acute intrathoracic abnormality. 2. No pulmonary emboli identified. ACT 112: Negative or not required by law. The above report was generated using voice recognition software. It may contain grammatical, syntax or spelling errors. Electronically signed by: Juvenal Colvin M.D. 05/18/2024 8:41 AM Discharge Plan Visit Data Chief Complaint: Abdominal Pain Stated Complaint: ABDOMINAL PAIN ED Provider: Yonas Pacheco Discharge Problem: Chronic cholecystitis with calculus, Upper abdominal pain, Nausea and vomiting Patient Disposition: Admitted As Inpatient Discharge Instructions Interventions: ED Discharge Assessment Last Done: 05/18/24 14:59 Discharge Problem: Nausea and vomiting Qualifiers: Vomiting type: unspecified Qualified Code(s): R11.2 - Nausea with vomiting, unspecified
--- NOTE | 2024-05-18 08:09 | XRay Report ---
EXAM: XR chest 1V portable CLINICAL HISTORY: COUGH JTF TECHNIQUE: An X-ray image of the chest is obtained in AP projection. COMPARISON: 12/06/2020 FINDINGS: Pulmonary Parenchyma: Bilateral prominent bronchovascular markings No evidence of consolidation, collapse, or focal opacities. No pulmonary nodules are identified. No evidence of pleural effusion or pleural thickening. Heart and Mediastinum: Heart size and shape are normal. No mediastinal widening or masses. No hilar or mediastinal lymphadenopathy. Bony Thorax: Bony thorax appears intact without fractures or deformities. Soft Tissues: Soft tissues overlying the chest wall are unremarkable. IMPRESSION: 1. Bilateral prominent bronchovascular markings 2. No acute cardiopulmonary abnormalities are identified. Electronically signed by Ruth Islas 05-18-2024 08:09 AM
[2024-05-18] MEDS: OPTIRAY 320 125ml IV ONE (08:11)
--- NOTE | 2024-05-18 08:31 | CT Scan Report ---
CT OF THE ABDOMEN AND PELVIS WITH CONTRAST CLINICAL HISTORY: Abdominal pain, nausea, vomiting and diarrhea. COMPARISON STUDY: CT of the abdomen and pelvis November 11, 2022. Right upper quadrant ultrasound January 28, 2024. TECHNIQUE: Following IV administration of 120 mL of Optiray, axial images of the abdomen and pelvis w ere obtained from the lung bases to the proximal femurs. Images were reviewed in the axial, sagittal, and coronal planes. IV contrast was administered without complication. Automated exposure control w as utilized for the study. A dose lowering technique was utilized adhering to the principles of ALVARADO Blake. FINDINGS: No pneumatosis, free air or portal venous gas is present. There is hepatomegaly and hepatic steatosis. Subcentimeter hypodense lateral segment hepatic lesion is too small to characterize but u nchanged since CT of November 11, 2022. This is likely benign. There is a gallstone within the gallbladder . Gallbladder wall thickening is similar to prior CT. There is no pericholecystic inflammation. There is no biliary or pancreatic ductal lesion. Spleen, adrenal glands, kidneys and pancreas are unremark able. There is no hydronephrosis. Caliber and wall thickness of small and large bowel are normal. The appendix is normal. There is colonic diverticulosis without evidence for acute diverticulitis. Major vasculature is patent. No lymphadenopathy. No fluid collections are present. IMPRESSION: 1. No acute process within the abdomen or pelvis. 2. Cholelithiasis with gallbladder wall thickening, similar to prior CT. This favors chronic cholecys titis. 3. Colonic diverticulosis. No evidence for acute diverticulitis. 4. Normal appendix. No bowel obstruction. No bowel wall thickening. ACT 112: Negative or not required by law. Electronically signed by: Ever Burroughs M.D. 05/18/2024 8:29 AM
[2024-05-18 08:35] LABS: Troponin I High Sensitivity 4.4 pg/ml (0-14)
[2024-05-18 08:41] LABS: Adenovirus PCR Not Detected (NotDetected); Bordetella parapertussis PCR Not Detected (NotDetected); Bordetella pertussis PCR Not Detected (NotDetected); Chlamydia pneumoniae PCR Not Detected (NotDetected); Coronavirus 229E PCR Not Detected (NotDetected); Coronavirus CoV-2 (COVID19)PCR Not Detected (NotDetected); Coronavirus HKU1 PCR Not Detected (NotDetected); Coronavirus NL63 PCR Not Detected (NotDetected); Coronavirus OC43PCR Not Detected (NotDetected); Human Metapneumovirus PCR Not Detected (NotDetected); Influenza A PCR Not Detected (NotDetected); Influenza B PCR Not Detected (NotDetected); Mycoplasma pneumoniae PCR Not Detected (NotDetected); Parainfluenza Virus 1 PCR Not Detected (NotDetected); Parainfluenza Virus 2 PCR Not Detected (NotDetected); Parainfluenza Virus 3 PCR Not Detected (NotDetected); Parainfluenza Virus 4 PCR Not Detected (NotDetected); Respiratory Syncytial VirusPCR Not Detected (NotDetected); Rhinovirus/Enterovirus PCR Not Detected (NotDetected)
--- NOTE | 2024-05-18 08:43 | CT Scan Report ---
CT angio chest PE protocol CT DOSE: 1873.06 mGy.cm HISTORY: 58 years-old Female with cp, sob, vomiting, h/o PE, r/o pe. Acute chest pain with shortnes s of breath TECHNIQUE: Multiple CTA images of the chest were obtained after the intravenous administration of 120 ml Optiray. Coronal and sagittal MIPS were obtained from the axial data set and were submitted for review. All measurements were obtained according to NASCET criteria. A dose lowering technique was u tilized adhering to the principles of ALARA. COMPARISON: CT abdomen and pelvis of same day, chest CT 05/06/2022 FINDINGS: CTA: Heart is normal in size. There is no pericardial effusion. Mild coronary artery calcifications. Unrem arkable thoracic aorta. No pulmonary emboli are identified. CT CHEST: There is a small peripherally calcified left-sided thyroid nodule measuring approximately 10 mm. No l ymphadenopathy. No pneumothorax, pleural effusion or pulmonary edema. Mild/moderate pulmonary emphyse ma. Mild subsegmental bibasilar atelectasis. Stable low suspicion scattered solid pulmonary nodules a re again noted measuring up to 4 mm which are likely benign. Central airways appear patent. CT abdomen and pelvis is dictated separately. No acute fracture identified. IMPRESSION: 1. Emphysema without acute intrathoracic abnormality. 2. No pulmonary emboli identified. ACT 112: Negative or not required by law. The above report was generated using voice recognition software. It may contain grammatical, syntax o r spelling errors. Electronically signed by: Juvenal Colvin M.D. 05/18/2024 8:41 AM
[2024-05-18] MEDS: PROMETHAZINE 12.5 MG/50.5 ML BAG IV STA (10:40)
--- NOTE | 2024-05-18 11:00 | History & Physical Report ---
Date of Service May 18, 2024 Assessment & Plan (1) Chronic cholecystitis with calculus: Plan: Recurrent RUQ abdominal pain and N/V that began on Wednesday 05/16 H/o biliary colic x 1 year; occurs every month or so Patient was in discussions for outpatient ERCP to have gallbladder removed No leukocytosis; afebrile on arrival; LFTs WNL A/P CT on arrival revealed chronic cholecystitis Revised cardiac risk index: 0 General Surgery consult appreciated N.p.o. at midnight Plan for the OR the morning of 05/19 Hold Eliquis Metronidazole + Rocephin IV analgesics PRN IV antiemetics PRN Plasma-Lyte at 80 mL/hr x 1 L (2) Ayliw-Yedemwcfv-Ghdix (WPW) syndrome: Plan: Continuous telemetry monitoring Continue p.o. flecainide Patient does report that nausea/vomiting have improved on admission after IV antiemetics Will reach out to cardiology for alternatives if patient is unable to keep p.o. medications down (3) Tobacco use: Plan: Daily tobacco cigarette smoker; 1 PPD Nicotine patch daily Continue to encourage cessation (4) History of pulmonary embolism: Plan: Chest CTA negative for pulmonary embolism on 05/18 Hold Eliquis prior to lap frantz Plan Disposition: Obs - admit to [facility] telemetry Full code N.p.o. PT PPx: Hold Eliquis; SCDs History of Present Illness Chief Complaint: Abdominal pain, nausea/vomiting Primary Care Provider: KYLE Humphries Sonja is a 58-year-old female with PMH of Pfcmz-Dfwtlplom-Xqyje syndrome, anxiety, mast cell disorder, COPD with emphysema, pulmonary embolism (on apixaban), and dyslipidemia. She presented on 05/18 for RUQ abdominal pain, nausea, and vomiting. Patient reports that her symptoms started on Friday evening after she had Chawla's. She began to vomit and had right upper quadrant abdominal pain. She has had issues with biliary colic for the past year. In the past it has been mild, and tends to occur every couple months; however patient reports it is always with different foods and so she is unsure when that will occur. At present, she reports RUQ abdominal pain that she rates a 5/10. She characterizes it as a constant, sharp pain that will occasionally get worse and radiate to her back as well as generalized abdomen. Patient took her medications on Friday, as well as Tylenol for the pain and believes that she was able to keep it down. She also said she felt okay on Friday and took her regular morning medications on Friday. She did not take her regular medicines today; last took Eliquis on Friday morning 05/17. No recent change in medications. No prior history of abdominal surgeries. She has been tolerating fluids at home, but not solids. No PMH of ME, stroke, insulin use, DM, or kidney issues. She has been around her grandson recently, who was sick with a cough. Patient is a current everyday tobacco cigarette smoker; 1 PPD. She requests a nicotine patch while she is here. She denies any recent alcohol use or recreational drug use. Patient is hypertensive at 141/85 at time of admission; vitals otherwise stable. ED course: Rocephin 2000 mg IV Metronidazole 500 mg IV NSS 1000 mL IV Zofran 4 mg IV Acetaminophen 1000 mg IV Dicyclomine 20 mg IV Promethazine 12.5 mg IV ROS: Patient endorses nausea, vomiting, night sweats, RUQ abdominal pain, dry cough, and diarrhea x 1 episode yesterday. Patient denies fever, chills, dizziness, lightheadedness, headache, chest pain, pleuritic CP, SOB, hematemesis, coffee-ground emesis, melena, blood in the urine or stool, or dysuria. Allergies Allergy/AdvReac Type Severity Reaction Status Date / Time metoprolol Allergy Intermediate Hives Verified 01/21/24 18:30 Home Medications Medication Instructions Recorded Confirmed Type cetirizine 10 mg tablet (Zyrtec) 10 mg PO QAM 11/28/20 05/18/24 History famotidine 20 mg tablet 20 mg PO BID #60 tabs 12/11/20 05/18/24 Rx melatonin 5 mg capsule 5 mg PO HS PRN Sleep 02/15/22 05/18/24 History sertraline 100 mg tablet 200 mg (2 x 100 mg) PO DAILY #180 10/31/23 05/18/24 Rx tabs apixaban 5 mg tablet (Eliquis) 5 mg PO BID #60 tabs 12/31/23 05/18/24 Rx hydroxyzine HCl 25 mg tablet 25 mg PO TID 01/21/24 05/18/24 History flecainide 100 mg tablet 50 mg (1/2 x 100 mg) PO Q12 #90 04/15/24 05/18/24 Rx tabs Past Med/Surg History Problem List (Updated 05/18/24 @ 16:27 by Yonas Pacheco MD) Nausea and vomiting (Acute) Upper abdominal pain (Acute) History of pulmonary embolism Tobacco use Chronic cholecystitis with calculus (Acute) Statin intolerance Myalgia due to statin Dyslipidemia (Chronic) No pertinent past surgical history Tinea versicolor (Acute) On statin therapy due to risk of future cardiovascular event (Chronic) Blurred vision, bilateral Vision changes Hypertriglyceridemia (Chronic) Health care maintenance Elevated TSH (Acute) Exertional shortness of breath Current smoker (Chronic) COPD with emphysema (Chronic) Pulmonary nodules (Chronic) Thyroid nodule (Chronic) Mast cell disorder Tachycardia (Acute) Hmhrt-Wyfhqbbqn-Zwbuo (WPW) syndrome (Acute) Anxiety (Chronic) Insomnia Urticaria (Chronic) Pulmonary embolism (Chronic) Medical History Impetigo Family History Mother Heart disease Diabetes Hypertension Myocardial infarction Father Accidental Sister Heart disease arrhythmia, ? CHF Myocardial infarction Sister Heart disease valvular heart disease Brother Heart disease CHF Other Allergies Denies family history of Tuberculosis Ovarian cancer Prostate cancer Breast cancer Emphysema, unspecified Colorectal cancer Lung disease Asthma Social History Smoking Status: Current every day smoker Tobacco Type: Cigarettes packs per day: 0.5; Cigarettes Per Day: 5 a day; Second Hand Exposure: Yes; Do You Dip or Chew Tobacco: Yes; Tobacco Cessation Education Requested by Patient: Yes Hx Alcohol Use: No Hx Substance Use: No Preferred Language: Emir[place] Communication Ability: Effective Visual Impairment: No Limitations Hearing Ability: Normal Student Affairs Dean Required: No Beliefs That Will Affect Care: None marital status: Current Living Situation: Spouse Current Living Situation Comment: [facility] [employer] current occupational status: unemployed Other Information That Helps Us Care for You: No Feels Safe at Home: Yes Safety Concerns: Feels Safe At This Time Childhood Exposure to Second-Hand Smoke: Yes Dental Care, Regularly: No Physical Activity Frequency: Does not Exercise Seatbelt Use: always Sunscreen Use: No Assistive Devices: None Review of Systems Review of Systems: See HPI above Physical Exam Physical Exam: General: no acute distress; at bedside; non-toxic appearing; cooperative; SpO2 94% on RA HEENT: normocephalic, atraumatic; no scleral icterus; PERRLA; vision and hearing intact Neck: supple; no lymphadenopathy; trachea midline Skin: warm, dry without signs of tenting; no cyanosis; no rashes, bruising, l esions, or erythema noted CV: chest wall NTP; RRR; S1/S2 normal; no murmurs/rubs/gallops; pulses intact and symmetric at radial, DP, and PT Lungs: no acute respiratory distress; symmetrical chest wall expansion; clear breath sounds across all lung lujan w/o adventitious sounds; no wheezing ABD: Soft, RUQ mildly TTP; positive White sign; no rashes or bruising noted on the abdomen or flanks bilaterally; BS present; no rebound/guarding; no distention MSK: no tics or fasciculations; no edema noted in the LEs b/l, nonerythematous Neuro: A&Ox3; normal mood and affect; fluent speech; no focal deficits; sensation grossly intact in the LEs b/l Results & Data Results & Data Vital Signs (Past 12 Hours) Vital Signs Temp Pulse Pulse Resp BP BP Pulse Ox 05/18/24 10:43 72 19 141/85 H 94 05/18/24 10:17 68 05/18/24 09:58 94 H 14 135/87 98 05/18/24 08:20 71 18 144/85 H 97 05/18/24 06:54 71 17 150/90 H 97 05/18/24 06:28 98 05/18/24 06:28 72 18 150/76 H 97 05/18/24 06:09 71 05/18/24 05:46 36.5 C 78 20 166/97 H 97 O2 Del Method 05/18/24 10:43 Room Air 05/18/24 10:17 05/18/24 09:58 Room Air 05/18/24 08:20 Room Air 05/18/24 06:54 Room Air 05/18/24 06:28 Room Air 05/18/24 06:28 Room Air 05/18/24 06:09 12/03/24 05:46 Room Air Laboratory Results Abnormal lab results 05/18/24 Range/Units 06:17 Neut # (Auto) 7.91 H (1.40-6.50) K/uL Chloride 109 H (98-107) mmol/L Glucose 124 H (70-99(Fasting)) mg/dl Lipase 9 L (11-82) U/L Urine Protein Trace H (Negative) U Epithel Cells (Auto) 6-10 H (0-2) /hpf Diagnostic Findings Abdomen/Pelvis CT 05/18/24 07:27 CT OF THE ABDOMEN AND PELVIS WITH CONTRAST CLINICAL HISTORY: Abdominal pain, nausea, vomiting and diarrhea. COMPARISON STUDY: CT of the abdomen and pelvis November 11, 2022. Right upper quadrant ultrasound January 28, 2024. TECHNIQUE: Following IV administration of 120 mL of Optiray, axial images of the abdomen and pelvis were obtained from the lung bases to the proximal femurs. Images were reviewed in the axial, sagittal, and coronal planes. IV contrast was administered without complication. Automated exposure control was utilized for the study. A dose lowering technique was utilized adhering to the principles of ALARA. FINDINGS: No pneumatosis, free air or portal venous gas is present. There is hepatomegaly and hepatic steatosis. Subcentimeter hypodense lateral segment hepatic lesion is too small to characterize but unchanged since CT of November 11, 2022. This is likely benign. There is a gallstone within the gallbladder. Gallbladder wall thickening is similar to prior CT. There is no pericholecystic inflammation. There is no biliary or pancreatic ductal lesion. Spleen, adrenal glands, kidneys and pancreas are unremarkable. There is no hydronephrosis. Caliber and wall thickness of small and large bowel are normal. The appendix is normal. There is colonic diverticulosis without evidence for acute diverticulitis. Major vasculature is patent. No lymphadenopathy. No fluid collections are present. IMPRESSION: 1. No acute process within the abdomen or pelvis. 2. Cholelithiasis with gallbladder wall thickening, similar to prior CT. This favors chronic cholecystitis. 3. Colonic diverticulosis. No evidence for acute diverticulitis. 4. Normal appendix. No bowel obstruction. No bowel wall thickening. ACT 112: Negative or not required by law. Electronically signed by: Ever Burroughs M.D. 05/18/2024 8:29 AM Chest X-Ray 05/18/24 07:28 EXAM: XR chest 1V portable CLINICAL HISTORY: COUGH JTF TECHNIQUE: An X-ray image of the chest is obtained in AP projection. COMPARISON: 12/06/2020 FINDINGS: Pulmonary Parenchyma: Bilateral prominent bronchovascular markings No evidence of consolidation, collapse, or focal opacities. No pulmonary nodules are identified. No evidence of pleural effusion or pleural thickening. Heart and Mediastinum: Heart size and shape are normal. No mediastinal widening or masses. No hilar or mediastinal lymphadenopathy. Bony Thorax: Bony thorax appears intact without fractures or deformities. Soft Tissues: Soft tissues overlying the chest wall are unremarkable. IMPRESSION: 1. Bilateral prominent bronchovascular markings 2. No acute cardiopulmonary abnormalities are identified. Electronically signed by Ruth Islas 05-18-2024 08:09 AM Chest CTA 05/18/24 07:54 CT angio chest PE protocol CT DOSE: 1873.06 mGy.cm HISTORY: 58 years-old Female with cp, sob, vomiting, h/o PE, r/o pe. Acute chest pain with shortness of breath TECHNIQUE: Multiple CTA images of the chest were obtained after the intravenous administration of 120 ml Optiray. Coronal and sagittal MIPS were obtained from the axial data set and were submitted for review. All measurements were obtained according to NASCET criteria. A dose lowering technique was utilized adhering to the principles of ALARA. COMPARISON: CT abdomen and pelvis of same day, chest CT 05/06/2022 FINDINGS: CTA: Heart is normal in size. There is no pericardial effusion. Mild coronary artery calcifications. Unremarkable thoracic aorta. No pulmonary emboli are identified. CT CHEST: There is a small peripherally calcified left-sided thyroid nodule measuring approximately 10 mm. No lymphadenopathy. No pneumothorax, pleural effusion or pulmonary edema. Mild/moderate pulmonary emphysema. Mild subsegmental bibasilar atelectasis. Stable low suspicion scattered solid pulmonary nodules are again noted measuring up to 4 mm which are likely benign. Central airways appear patent. CT abdomen and pelvis is dictated separately. No acute fracture identified. IMPRESSION: 1. Emphysema without acute intrathoracic abnormality. 2. No pulmonary emboli identified. ACT 112: Negative or not required by law. The above report was generated using voice recognition software. It may contain grammatical, syntax or spelling errors. Electronically signed by: Juvenal Colvin M.D. 05/18/2024 8:41 AM ECG Additional Comments: ECG revealed NSR at 70 bpm; QTc 455 Code Status & VTE Plan Code Status Full code (discussed with patient and patient's at bedside) VTE Prophylaxis Plan VTE Prophylaxis will be ordered: Yes Supervising Physician Co-Signing Physician Notes I personally saw and examined the patient. I independently reviewed the labs, EKG, imaging, problem list, medication list, past medical history and family history. I verified all saavedra points and agree with John Cazares PA-C with the following exceptions and/or additions: 58 year old female presents to the ER due to RUQ and epigastric abdominal pain. Having intermittent episodes for months. Chronic cholecystitis seen on prior and current CT with hindsight. O/E HS RRR, no murmurs, Chest CTAB, Abdo RUQ pain on palpation without guarding or rebound tenderness A/P Acute on chronic cholecystitis - suspect longstanding biliary colic with acute on chronic cholecystics, ceftriaxone + metronidazole, NPO, Consult general surgery, no CBD dilatation of elevated LFTs to suggest need for ERCP Otherwise as above but added on her usual chronic medications PG Care Time/CCT Total # of Minutes Spent Total Time Spent with Patient: Total time spent is greater than 50% in coordination of care (as documented) at patient's floor/unit and/or counseling patient: Coding [place] [address] INT INP/OBS CARE 2/55MIN Patient Type Established Medical Decision Making Moderate Complexity Diagnoses Chronic cholecystitis with calculus K80.10 Zpfeo-Czunaqaje-Siuyi (WPW) syndrome I45.6 Tobacco use Z72.0 History of pulmonary embolism Z86.711
[2024-05-18] MEDS: cefTRIAXone SODIUM 2,000 MG/50 ML BAG IV STA (11:04)
--- NOTE | 2024-05-18 11:05 | Surgery Consultation ---
Date of Consultation May 18, 2024 Assessment & Plan (1) Chronic cholecystitis with calculus: Patient with ongoing abdominal pain , nausea , vomiting ,since Friday with known cholelithiasis. CT scan in ER showing concerns for chronic cholecystitis with cholelithiasis. WBC wnl, LFT wnl, VSS . On exam pt is complaining of nausea and abdominal pain, appears uncomfortable, is TTP RUQ. Reviewed imaging with pt and recommending laparoscopic cholecystectomy with nutrition services assistant surgeon Dr Damian, procedure explained to patient , patient is agreeable. Recommending admission to medicine given pts comorbidities. Hold blood thinners IV fluids for hydration, IV analgesics and antiemetics PRN NPO at MO The patient will be scheduled for a surgical intervention 05/19/[address] Damian for a laparoscopic cholecystectomy as above. discussed options/risks. will give an additonal day for her eliquis to wash out. questions answered. will proceed tomorrow with lap frantz History of Present Illness Reason for Consultation: chronic cholecystitis Requesting Physician: Dr. Pacheco History of Present Illness Patient is a pleasant 58 yo female with PMH of COPD emphysema, mast cell disorder, kuibo-ancxbrbqv-cvduq syndrome, PSVT, PE that presented to the [facility] ER with c/o abdominal pain that has started Friday night after eating and developed N/V. Friday she felt somewhat better , however symptoms returned Friday night after eating pasta salad. She reports a history of known gallstones and underwent an ultrasound last January and was suppose to see GI and set up an appointment with a surgeon but her symptoms were not as severe and never made an appointment. She takes Eliquis for a prior PE, and her last dose was yesterday. Denies CP, SOB, change in bowel habits, dysuria , F/C , and prior abd surgery. Allergies Allergy/AdvReac Type Severity Reaction Status Date / Time metoprolol Allergy Intermediate Hives Verified 01/21/24 18:30 Home Medications Medication Instructions Recorded Confirmed Type cetirizine 10 mg tablet (Zyrtec) 10 mg PO QAM 11/28/20 05/18/24 History famotidine 20 mg tablet 20 mg PO BID #60 tabs 12/11/20 05/18/24 Rx melatonin 5 mg capsule 5 mg PO HS PRN Sleep 02/15/22 05/18/24 History sertraline 100 mg tablet 200 mg (2 x 100 mg) PO DAILY #180 10/31/23 05/18/24 Rx tabs apixaban 5 mg tablet (Eliquis) 5 mg PO BID #60 tabs 12/31/23 05/18/24 Rx hydroxyzine HCl 25 mg tablet 25 mg PO TID 01/21/24 05/18/24 History flecainide 100 mg tablet 50 mg (1/2 x 100 mg) PO Q12 #90 04/15/24 05/18/24 Rx tabs Patient History Medical History Impetigo Family History Mother Heart disease Diabetes Hypertension Myocardial infarction Father Accidental Sister Heart disease arrhythmia, ? CHF Myocardial infarction Sister Heart disease valvular heart disease Brother Heart disease CHF Other Allergies Denies family history of Tuberculosis Ovarian cancer Prostate cancer Breast cancer Emphysema, unspecified Colorectal cancer Lung disease Asthma Social History Smoking Status: Current every day smoker Tobacco Type: Cigarettes packs per day: 0.5; Cigarettes Per Day: 5 a day; Second Hand Exposure: No; Do You Dip or Chew Tobacco: No; Hx Alcohol Use: No Hx Substance Use: No Preferred Language: Afghan Communication Ability: Effective Visual Impairment: No Limitations Hearing Ability: Normal Piece Goods Clerk Required: No Beliefs That Will Affect Care: None marital status: Current Living Situation: Spouse Current Living Situation Comment: lives with current occupational status: unemployed Feels Safe at Home: Yes Childhood Exposure to Second-Hand Smoke: Yes Dental Care, Regularly: No Physical Activity Frequency: Does not Exercise Seatbelt Use: always Sunscreen Use: No Assistive Devices: None Review of Systems Constitutional: no fever and no chills Respiratory: no dyspnea Cardiovascular: no chest pain and no palpitations Gastrointestinal: + abdominal pain, + nausea and + vomitin g; no change in bowel habits Genitourinary: no dysuria Musculoskeletal: no muscle weakness Psychiatric: no confusion Physical Exam Constitutional: cooperative; no acute distress Respiratory: normal respiratory effort; no respiratory distress Cardiovascular: Rate/Rhythm: regular rate Gastrointestinal (Abdomen): Inspection/Auscultation: abdomen not distended and no abdominal surgical scar Percussion/Palpation: + abdomen tender and + guarding Musculoskeletal: no cyanosis or clubbing, extremities motor strength 5/5 Psychiatric: Orientation: alert and oriented x 3 Results & Data Vital Signs (Past 12 Hours) Vital Signs Temp Pulse Pulse Resp BP BP Pulse Ox 05/18/24 10:43 72 19 141/85 H 94 05/18/24 10:17 68 05/18/24 09:58 94 H 14 135/87 98 05/18/24 08:20 71 18 144/85 H 97 05/18/24 06:54 71 17 150/90 H 97 05/18/24 06:28 98 05/18/24 06:28 72 18 150/76 H 97 05/18/24 06:09 71 05/18/24 05:46 97.7 F 78 20 166/97 H 97 O2 Del Method 05/18/24 10:43 Room Air 05/18/24 10:17 05/18/24 09:58 Room Air 05/18/24 08:20 Room Air 05/18/24 06:54 Room Air 05/18/24 06:28 Room Air 05/18/24 06:28 Room Air 05/18/24 06:09 05/18/24 05:46 Room Air Diagnostic Findings [place], [place] [phone] CT Scan Report Patient: KRISHNA FERGUSON Admit Date: 05/18/24 MR#: [id number] Address1: [facility] [address] Acct ID:[id number] Address2: Date: 1965 [facility] Zip: [place] [id number] Age: 58 Location: ED Sex: F Room/Bed: Att Phy: Diagnosis: ABDOMINAL PAIN Beba Phy: Alfonzo Pérez CRNP Service Date: 05/18/24 [facility] Phy: Interpreting Phy: Ever Payne Phy: Ordering Phy: Yonas Pacheco M.D. cc: ~ CT OF THE ABDOMEN AND PELVIS WITH CONTRAST CLINICAL HISTORY: Abdominal pain, nausea, vomiting and diarrhea. COMPARISON STUDY: CT of the abdomen and pelvis November 11, 2022. Right upper quadrant ultrasound January 28, 2024. TECHNIQUE: Following IV administration of 120 mL of Optiray, axial images of the abdomen and pelvis were obtained from the lung bases to the proximal femurs. Images were reviewed in the axial, sagittal, and coronal planes. IV contrast was administered without complication. Automated exposure control was utilized for the study. A dose lowering technique was utilized adhering to the principles of ALARA. FINDINGS: No pneumatosis, free air or portal venous gas is present. There is hepatomegaly and hepatic steatosis. Subcentimeter hypodense lateral segment hepatic lesion is too small to characterize but unchanged since CT of November 11, 2022. This is likely benign. There is a gallstone within the gallbladder. Gallbladder wall thickening is similar to prior CT. There is no pericholecystic inflammation. There is no biliary or pancreatic ductal lesion. Spleen, adrenal glands, kidneys and pancreas are unremarkable. There is no hydronephrosis. Caliber and wall thickness of small and large bowel are normal. The appendix is normal. There is colonic diverticulosis without evidence for acute diverticulitis. Major vasculature is patent. No lymphadenopathy. No fluid collections are present. IMPRESSION: 1. No acute process within the abdomen or pelvis. 2. Cholelithiasis with gallbladder wall thickening, similar to prior CT. This favors chronic cholecystitis. 3. Colonic diverticulosis. No evidence for acute diverticulitis. 4. Normal appendix. No bowel obstruction. No bowel wall thickening. ACT 112: Negative or not required by law. Electronically signed by: Ever Burroughs M.D. 05/18/2024 8:29 AM Dictated: 05/18/24823 Transcribed: 05/18/24823 Results CBC w Diff Results: RBC 4.52 M/uL (4.20-5.40) 05/18/24 WBC 10.17 K/ul (4.8-10.8) 05/18/24 Hgb 13.9 g/dl (12.0-16.0) 05/18/24 Hct 39.6 % (37.0-47.0) 05/18/24 MCV 87.6 fL (80.0-100.0) 05/18/24 MCH 30.8 pg (25.0-34.0) 05/18/24 MCHC 35.1 g/dL (32.0-36.0) 05/18/24 RDW Standard Deviation 41.6 fL (36.4-46.3) 05/18/24 RDW Coefficient of Variation 13.0 % (11.5-14.5) 05/18/24 Plt Count 231 K/uL (130-400) 05/18/24 MPV 10.3 fL (9.4-12.4) 05/18/24 Neutrophils (%) (Auto) 77.8 % 05/18/24 Lymphocytes (%) (Auto) 15.0 % 05/18/24 Monocytes # (Auto) 0.51 K/uL (0.11-0.59) 05/18/24 Eosinophils # (Auto) 0.12 K/uL (0.00-0.50) 05/18/24 Immature Granulocyte % (Auto) 0.4 % 05/18/24 Neutrophils # (Auto) 7.91 K/uL (1.40-6.50) H 05/18/24 Lymphocytes # (Auto) 1.53 K/uL (1.20-3.40) 05/18/24 Monocytes # (Auto) 0.51 K/uL (0.11-0.59) 05/18/24 Eosinophils # (Auto) 0.12 K/uL (0.00-0.50) 05/18/24 Basophils # (Auto) 0.06 K/uL (0.00-0.20) 05/18/24 Immature Granulocyte # (Auto) 0.04 K/uL (0.01-0.20) 4 PG Care Time/CCT Total # of Minutes Spent Total Time Spent with Patient: Total time spent is greater than 50% in coordination of care (as documented) at patient's floor/unit and/or counseling patient: Coding Level of Care Code 45137 IN/OBS CONSULT LVL 2,35M Diagnoses Chronic cholecystitis with calculus K80.10
[2024-05-18] MEDS: metroNIDAZOLE 500 MG/100 ML BAG IV STA (12:02)
[2024-05-18] MEDS: KETOROLAC TROMETHAMINE 15 MG/ML VIAL IV ONE (12:18)
[2024-05-18] MEDS: NICOTINE 14 MG/24 HR PATCH TD STA (12:20)
[2024-05-18] MEDS: FLECAINIDE ACETATE 100 MG TABLET PO STA (12:54)
[2024-05-18] MEDS: PLASMA-LYTE A 1,000 ML IV SCH (12:58)
--- NOTE | 2024-05-18 14:17 | Electrocardiogram Report ---
Test Reason : Blood Pressure : */* mmHG Vent. Rate : 70 BPM Atrial Rate : 70 BPM P-R Int : 162 ms QRS Dur : 74 ms QT Int : 422 ms P-R-T Axes : 60 77 50 degrees QTcB Int : 455 ms Normal sinus rhythm Normal ECG When compared with ECG of 06-Dec-2020 12:45, No significant change was found Confirmed by Raul Lux ([id number]) on 05/18/2024 2:16:30 PM Referred By: REFERRED SELF Confirmed By: Raul Lux
[2024-05-18] MEDS ORDERED: MoRPHine SULFATE 2 MG/ML CARP IV PRN (15:36)
[2024-05-18] MEDS: ACETAMINOPHEN 1,000 MG/100 ML VIAL IV PRN (17:28)
[2024-05-18] MEDS ORDERED: INFLUENZA VACC TS2024-25(6m+)/PF (IIV3) 0.5mL Syr IM ONE (18:00)
[2024-05-18] MEDS: FLECAINIDE ACETATE 100 MG TABLET PO SCH (20:04)
[2024-05-18] MEDS: metroNIDAZOLE 500 MG/100 ML BAG IV SCH (20:07)
[2024-05-19] MEDS: PLASMA-LYTE A 1,000 ML IV SCH (01:38)
[2024-05-19] MEDS: SODIUM CHLORIDE 0.9% 1,000 ML IV SCH (06:31)
--- NOTE | 2024-05-19 06:39 | Anesthesiology Consultation ---
Date of Service May 19, 2024 Assessment & Plan Chart Review Chart Review: Acceptable Risk for Surgery and Patient NOT seen in Pre Admission Testing Consults Requested none History Surgery Operation Date: 05/19/24 07:00 Proposed Procedures p Laparoscopic Cholecystectomy - Darryl Damian, Height/Weight Height: 5 ft 11 in Weight: 85 kg Allergies Allergy/AdvReac Type Severity Reaction Status Date / Time metoprolol Allergy Intermediate Hives Verified 01/21/24 18:30 Medications Home Medications Medication Instructions Recorded Confirmed Last Taken cetirizine 10 mg tablet (Zyrtec) 10 mg PO QAM 11/28/20 05/18/24 11/28/20 famotidine 20 mg tablet 20 mg PO BID #60 tabs 12/11/20 05/18/24 Unknown melatonin 5 mg capsule 5 mg PO HS PRN Sleep 02/15/22 05/18/24 Unknown sertraline 100 mg tablet 200 mg (2 x 100 mg) PO DAILY #180 10/31/23 05/18/24 Unknown tabs apixaban 5 mg tablet (Eliquis) 5 mg PO BID #60 tabs 12/31/23 05/18/24 Unknown hydroxyzine HCl 25 mg tablet 25 mg PO TID 01/21/24 05/18/24 Unknown flecainide 100 mg tablet 50 mg (1/2 x 100 mg) PO Q12 #90 04/15/24 05/18/24 Unknown tabs Active Medications Generic Name Dose Route Start Last Admin Trade Name Freq PRN Reason Stop Dose Admin Flecainide Acetate 50 mg 05/18/24 21:00 05/18/24 20:04 Flecainide Acetate 100 Mg Tablet PO 06/17/24 20:59 50 mg Q12 ROBERT Administration Acetaminophen 1,000 mg in 100 mls @ 400 mls/hr 05/18/24 15:36 05/19/24 03:16 Ofirmev IV 05/21/24 15:35 Infused Q8H PRN Infusion Fever/Mild Pain (Pain 1-5) Metronidazole 500 mg in 100 mls @ 100 mls/hr 05/18/24 20:00 05/19/24 04:23 Flagyl IV 05/22/24 19:59 Infused Q8H ROBERT Infusion Protocol Parenteral Electrolytes 1,000 mls @ 125 mls/hr 05/19/24 01:00 05/19/24 06:17 Plasma-Lyte A Ph 7.4 IV 05/19/24 16:59 0 mls/hr .Q8H ROBERT Infusion Sodium Chloride 1,000 mls @ 0 mls/hr 05/19/24 06:30 05/19/24 06:31 Nss IV 05/20/24 06:29 15 mls/hr .Q0M ROBERT Administration KVO Miscellaneous 1 each 05/18/24 21:00 05/18/24 20:08 Remove Nicoderm Patch N/A 06/17/24 20:59 1 each DAILY@2100 ROBERT Administration NPO Date Last Intake of Fluids: 05/18/24 Time Last Intake of Fluids: 20:00 Date Last Intake of Solids: 05/16/24 Time Last Intake of Solids: 12:00 Past Medical History Medical History Impetigo Past Family History Family History Mother Heart disease Diabetes Hypertension Myocardial infarction Father Accidental Sister Heart disease arrhythmia, ? CHF Myocardial infarction Sister Heart disease valvular heart disease Brother Heart disease CHF Other Allergies Denies family history of Tuberculosis Ovarian cancer Prostate cancer Breast cancer Emphysema, unspecified Colorectal cancer Lung disease Asthma Social History Smoking Status: Current every day smoker tobacco type: cigarettes Smoking cigarettes per day: 5 a day Do You Dip or Chew Tobacco: Yes Hx Alcohol Use: No Alcohol type: beer, wine and hard liquor alcohol intake frequency: holidays/special occasions only Hx Substance Use: No substance use type: does not use Physical Exam Vital Signs Last Vital Signs Temp 36.6 C 05/19/24 06:25 Pulse 79 05/19/24 06:25 Resp 20 05/19/24 06:25 BP 110/75 05/19/24 06:25 Pulse Ox 96 05/19/24 06:25 O2 Del Method Room Air 05/19/24 06:25 Testing Laboratory Results 05/18/24 06:17 05/18/24 06:17 Urine Color Yellow 05/18/24 06:17 Urine Appearance Clear (Clear) 05/18/24 06:17 Urine pH 5.0 (4.5-7.5) 05/18/24 06:17 Ur Specific [place] 1.024 (1.000-1.030) 05/18/24 06:17 Urine Protein Trace (Negative) H 05/18/24 06:17 Urine Glucose (UA) Negative (Negative) 05/18/24 06:17 Urine Ketones Negative (Negative) 05/18/24 06:17 Urine Nitrite Negative (Negative) 05/18/24 06:17 Ur Leukocyte Esterase Negative (Negative) 05/18/24 06:17 Urine WBC (Auto) 0-5 /hpf (0-5) 05/18/24 06:17 Urine RBC (Auto) 0-2 /hpf (0-2) 05/18/24 06:17 U Hyaline Cast (Auto) 0-2 /lpf (0-2) 05/18/24 06:17 U Epithel Cells (Auto) 6-10 /hpf (0-2) H 05/18/24 06:17 Urine Bacteria (Auto) None Seen (None Seen) 05/18/24 06:17
[2024-05-19] MEDS ORDERED: ROCURONIUM BROMIDE 10 MG/ML 5 ML VIAL IV ONE (06:44)
[2024-05-19] MEDS ORDERED: LIDOCAINE 2% 2 ML VIAL/AMP(20MG/ML) INFIL ONE (06:44)
[2024-05-19] MEDS ORDERED: ONDANSETRON INJ 2 MG/ML 2 ML VIAL ONE (06:44)
[2024-05-19] MEDS ORDERED: PROPOFOL IV EMULSION 10 MG/ML 20 ML VIAL IV ONE ×2 (06:44→07:34)
[2024-05-19] MEDS ORDERED: DEXAMETHASONE SOD INJ 4 MG/ML VIAL ONE (06:44)
[2024-05-19] MEDS ORDERED: fentaNYL citrate PF 100 MCG/2 ML VIAL ONE ×2 (06:47→07:38)
[2024-05-19] MEDS ORDERED: MIDAZOLAM HCL 1 MG/ML 2ML VIAL ONE (06:47)
--- NOTE | 2024-05-19 06:55 | History & Physical Bridge Note ---
Date of Service May 19, 2024 History & Physical Bridge Note I have examined the patient, reviewed the History & Physical and in the interval since the performance of the History & Physical I have noted the following changes of clinical significance: no changes noted
[2024-05-19] MEDS ORDERED: SUGAMMADEX SODIUM 200 MG/2 ML VIAL IV ONE (07:17)
[2024-05-19] MEDS: BUPIVACAINE/EPINEPHRINE 0.5% MPF 1:200,000 30 ML VIAL ONE (07:27)
[2024-05-19] MEDS ORDERED: ePHEDrine sulfate 50 MG/5 ML SYR ONE (08:05)
--- NOTE | 2024-05-19 08:07 | Operative Report ---
PG Post Operative Report Pre & Post Diagnosis Operation Date: 05/19/24 07:00 Pre-Op Diagnosis: biliary coloic Post-Op Diagnosis: acute cholecystitis I identified the patient and participated in the time-out.: Yes Procedure Operation Date: 05/19/24 07:00 Actual Procedures p Laparoscopic Cholecystectomy(Not Applicable) - Darryl Damian DO Surgeon Darryl Damian DO Press Cleaner lopez perez Estimated Blood Loss 50 Findings Consistent with Post-Op Diagnosis Specimens gallbladder Description of Procedure After informed consent was obtained the patient was taken to the operating room and placed in the supine position. After successful intubation the abdomen was sterilely prepped and draped in usual fashion. A periumbilical incision was made with an 11 blade scalpel and carried down through the soft tissue using electrocautery. The anterior rectus fascia was opened using electrocautery and 2 #0 Vicryl stay sutures were placed. The peritoneum was elevated with hemostats and incised under direct vision using Metzenbaum scissors. A finger sweep was performed and a 12 mm Sow trocar was placed. The abdomen was insufflated to 18 mmHg. The laparoscope was inserted and the abdomen was examined in 360. The gallbladder appeared to be acutely inflamed. Otherwise, no gross abnormalities were identified. A subxiphoid 5 mm port and 2 right upper quadrant 5 mm ports were placed under direct vision. The patient was placed in a reverse Trendelenburg position and slightly airplaned to the left. The gallbladder was grasped and elevated superiorly and laterally. A [place] dissector was used to take down adhesions around the neck of the gallbladder. The cystic duct was identified and skeletonized. It was clipped twice proximally and once distally and transected using a laparoscopic scissor. In similar fashion the cystic artery was identified and skeletonized clipped and divided. The gallbladder was removed from the gallbladder fossa with electrocautery. It was placed into an Endo Catch bag. Thorough irrigation was performed. At the end of the procedure there was adequate hemostasis and no evidence of any bile leaks. Prior to cautery the liver bed did have some generalized oozing likely secondary to the patient's anticoagulation. Therefore I did place 10 cc of Floseal over the gallbladder fossa. A final look around the abdomen showed no other abnormalities. The gallbladder and trochars were all removed and the abdomen was desufflated. The fascia of the camera port was closed using 0 Vicryl in simple interrupted fashion. All the wounds were irrigated and closed using 4-0 Monocryl. Marcaine was injected around them for postoperative analgesia and skin glue used as a dressing. The patient was awakened, extubated and transferred to recovery in stable condition. My RIGHT OF WAY WORKER assistant clinical nurse manager was present throughout the entire case... helped with prepping the patient. With exposure for trocar placement, as well as retracted the gallbladder throughout the case and also assisted with wound closure and dressing placement. I attest to the content of the Intraoperative Record and any orders documented therein. Any exceptions are noted below.
[2024-05-19] MEDS ORDERED: ESMOLOL HCL INJ 10 MG/ML 10ML VIAL IV ONE (08:09)
--- NOTE | 2024-05-19 08:59 | Anesthesiology Progress Note ---
Date of Service May 19, 2024 Anesthesia Post Procedure Vital Signs Vital Signs: Temp Pulse Pulse Pulse Resp BP BP 05/19/24 08:50 36.8 C 83 16 105/76 05/19/24 08:40 82 18 124/75 05/19/24 08:30 84 16 114/77 05/19/24 08:25 88 18 108/73 05/19/24 08:19 36.4 C L 87 16 112/74 05/19/24 07:17 85 05/19/24 06:25 36.6 C 79 20 110/75 05/19/24 02:55 36.6 C 82 18 129/76 05/18/24 22:17 36.5 C 88 18 125/74 05/18/24 21:57 79 05/18/24 20:05 05/18/24 19:19 36.6 C 80 20 142/80 H 05/18/24 15:36 05/18/24 15:32 70 05/18/24 15:00 37.1 C 70 18 124/78 05/18/24 14:58 70 18 05/18/24 14:18 74 05/18/24 12:34 82 18 138/88 05/18/24 10:43 72 19 141/85 H 05/18/24 10:17 68 05/18/24 09:58 94 H 14 135/87 Pulse Ox O2 Del Method O2 Flow Rate 05/19/24 08:50 94 Nasal Cannula 2 05/19/24 08:40 95 Oxymask 2 05/19/24 08:30 95 Oxymask 4 05/19/24 08:25 97 Oxymask 6 05/19/24 08:19 92 Oxymask 6 05/19/24 07:17 05/19/24 06:25 96 Room Air 05/19/24 02:55 94 Room Air 05/18/24 22:17 93 Room Air 05/18/24 21:57 05/18/24 20:05 Room Air 05/18/24 19:19 94 Room Air 05/18/24 15:36 Room Air 05/18/24 15:32 05/18/24 15:00 94 Room Air 05/18/24 14:58 95 Room Air 05/18/24 14:18 05/18/24 12:34 95 Room Air 05/18/24 10:43 94 Room Air 05/18/24 10:17 05/18/24 09:58 98 Room Air Pain Intensity Bilateral Upper Abdomen: Pain Intensity: 7 Transfer of Care Handoff Completed per policy Notes Mental Status: alert / awake / arousable Patient Amnestic to Procedure: Yes Nausea / Vomiting: adequately controlled Pain: adequately controlled Airway Patency, RR, SpO2: stable & adequate BP & HR: stable & adequate Hydration State: stable & adequate Anesthetic Complications: no major complications apparent and Pt Satisfied with anesthetic care
[2024-05-19] MEDS ORDERED: MoRPHine SULFATE 4 MG/ML 1 ML CARP\\VIAL IV PRN (09:22)
[2024-05-19] MEDS ORDERED: oxyCODONE HCL IR 5 MG TAB (IMMEDIATE RELEASE) PO PRN (09:22)
[2024-05-19] MEDS: CETIRIZINE HCL 10 MG TABLET PO SCH (09:37)
[2024-05-19] MEDS: SERTRALINE HCL 100 MG TABLET PO SCH (09:37)
[2024-05-19] MEDS: FAMOTIDINE 20 MG TAB PO SCH (09:37)
[2024-05-19] MEDS: hydrOXYzine HCl 25 MG TAB PO SCH (09:37)
[2024-05-19 10:21] VITALS: RESP 16
[2024-05-19 10:31] LABS: Basophils # (auto) 0.03 K/uL (0.00-0.20); Basophils % (auto) 0.3 %; Eosinophils # (auto) 0.04 K/uL (0.00-0.50); Eosinophils % (auto) 0.4 %; Hematocrit (blood only) 37.9 % (37.0-47.0); Hemoglobin 13.1 g/dl (12.0-16.0); Immature Granulocytes # (auto) 0.04 K/uL (0.01-0.20); Immature Granulocytes % (auto) 0.4 %; Lymphocytes # (auto) 0.79 K/uL (1.20-3.40); Lymphocytes % (auto) 8.7 %; Mean Corpuscular Hemoglobin 30.8 pg (25.0-34.0); Mean Corpuscular Hgb Conc 34.6 g/dL (32.0-36.0); Mean Corpuscular Volume 89.2 fL (80.0-100.0); Mean Platelet Volume 9.9 fL (9.4-12.4); Monocytes # (auto) 0.25 K/uL (0.11-0.59); Monocytes % (auto) 2.8 %; Neutrophils # (auto) 7.94 K/uL (1.40-6.50); Neutrophils % (auto) 87.4 %; Platelet Count 175 K/uL (130-400); RDW Coefficient of Variation 13.2 % (11.5-14.5); Red Blood Count 4.25 M/uL (4.20-5.40); White Blood Count 9.09 K/ul (4.8-10.8)
[2024-05-19 10:49] LABS: Albumin Globulin Ratio 1.6 (0.9-2); Albumin Level 3.8 gm/dl (3.4-5.0); BUN Creatinine Ratio 9.2 (10-20); Bilirubin,Total 0.6 mg/dl (0.2-1.0); Calcium 8.4 mg/dl (8.6-10.3); Creatinine Clr Calc Pharmacy 98.6 ml/min; Globulin 2.4 gm/dl (2.5-4.0); Potassium 3.9 mmol/L (3.5-5.1); Total Protein 6.2 gm/dl (6.0-8.3)
[2024-05-19] MEDS ORDERED: cefTRIAXone SODIUM 2,000 MG/50 ML BAG IV SCH (11:00)
[2024-05-19] MEDS: oxyCODONE HCL IR 5 MG TAB (IMMEDIATE RELEASE) PO PRN (11:11)
[2024-05-19] MEDS: ONDANSETRON INJ 2 MG/ML 2 ML VIAL IV PRN (11:11)
--- NOTE | 2024-05-19 13:02 | Discharge Summary ---
Discharge Summary Date of Service May 19, 2024 Principal Dx & Hospital Course #1 = Principal Diagnosis (1) Chronic cholecystitis with calculus: With acute on chronic cholecystitis and biliary colic Recurrent RUQ abdominal pain and N/V that began on Wednesday 05/16 H/o biliary colic x 1 year; occurs every month or so No leukocytosis; afebrile, LFTs WNL A/P CT on arrival revealed chronic cholecystitis General Surgery consult appreciated-now s/p lap frantz. DOing well, pain controlled, kian reg diet Can dc further Metronidazole + Rocephin, no need for oral antibiotics f/u with Surgery as outpt Hold Eliquis for 2 days post op (2) Tfumu-Tqegzpgwd-Arjph (WPW) syndrome: Continuous telemetry monitoring revealed NSR, no issues Continue p.o. flecainide (3) Tobacco use: Daily tobacco cigarette smoker; 1 PPD Nicotine patch daily Continue to encourage cessation (4) History of pulmonary embolism: Chest CTA negative for pulmonary embolism on 05/18 Hold Eliquis for lap frantz and encouraged ambulation Also had SCDs resume Eliquis on 05/21 (5) Thyroid nodule: noted on CT chest, has been followed previously-defer to PCP for further evaluation Plan Disposition: dc to home Full code DVT proph-SCDs, ambulation Notes For Next Care Provider None Medication Changes From Visit Added oxycodone and APAP prn Admission HPI Per Admitting Provider Sonja is a 58-year-old female with PMH of Mmjrj-Gpduiskmr-Bqsdx syndrome, anxiety, mast cell disorder, COPD with emphysema, pulmonary embolism (on apixaban), and dyslipidemia. She presented on 05/18 for RUQ abdominal pain, nausea, and vomiting. Patient reports that her symptoms started on Friday evening after she had Chawla's. She began to vomit and had right upper qu adrant abdominal pain. She has had issues with biliary colic for the past year. In the past it has been mild, and tends to occur every couple months; however patient reports it is always with different foods and so she is unsure when that will occur. At present, she reports RUQ abdominal pain that she rates a 5/10. She characterizes it as a constant, sharp pain that will occasionally get worse and radiate to her back as well as generalized abdomen. Patient took her medications on Friday, as well as Tylenol for the pain and believes that she was able to keep it down. She also said she felt okay on Friday and took her regular morning medications on Friday. She did not take her regular medicines today; last took Eliquis on Friday morning 05/17. No recent change in medications. No prior history of abdominal surgeries. She has been tolerating fluids at home, but not solids. No PMH of VA, stroke, insulin use, DM, or kidney issues. She has been around her grandson recently, who was sick with a cough. Patient is a current everyday tobacco cigarette smoker; 1 PPD. She requests a nicotine patch while she is here. She denies any recent alcohol use or recreational drug use. Patient is hypertensive at 141/85 at time of admission; vitals otherwise stable. ED course: Rocephin 2000 mg IV Metronidazole 500 mg IV NSS 1000 mL IV Zofran 4 mg IV Acetaminophen 1000 mg IV Dicyclomine 20 mg IV Promethazine 12.5 mg IV ROS: Patient endorses nausea, vomiting, night sweats, RUQ abdominal pain, dry cough, and diarrhea x 1 episode yesterday. Patient denies fever, chills, dizziness, lightheadedness, headache, chest pain, pleuritic CP, SOB, hematemesis, coffee-ground emesis, melena, blood in the urine or stool, or dysuria. Discharge Exam Constitutional WD/WN, vitals as above Respiratory normal respiratory effort, lungs clear to auscultation Cardiovascular RRR, no murmur, no edema Gastrointestinal (Abdomen) Inspection/Auscultation: + abdomen abnormal to inspection (lap surgical wounds c/d/i,dermabond in place, no erythema or drainage) Percussion/Palpation: + abdomen tender (mild around incision sites) and abdomen soft; no guarding and abdomen not rigid Psychiatric A+Ox3, euthymic affect Discharge Plan Discharge Items Patient Disposition: Home - Self-Care Reason For Visit: Biliary colic Discharge Diagnosis: Laparoscopic cholecystectomy Acute cholecystitis Activity: As commented below Lifting: No more than 10 pounds Bathing Comment: you can shower tomorrow . no soaking in pools/baths for 2 weeks Exercise/Sports: Wait until after follow-up appointment Driving/Machine Use: no driving if taking narcotic pain medication Non-emergency contact: Primary Care Provider and Surgeon Call non-emergency contact if: you have any medication questions, you have a fever, your temperature is above 101.5, your wound has increased redness, your wound has increased drainage and your wound pain has increased Follow-up/Referrals: Alfonzo Pérez CRNP [Primary Care Provider] - 05/28/24 9:30 am () Darryl Damian DO [Surgeon] - (call office for follow up in 2 weeks ) Diet: Regular Addtl Attending Provider Instructions: You have surgical glue called dermabond on your surgical site incisions. You may shower with this on. This will tend to come off within a couple of weeks. Do not pick at it. You can resume your Eliquis on 05/21/24 Incidentally, you were found to have a nodule on your thyroid. Please follow up with your PCP regarding further evaluation of this. Pending Studies at Discharge: Yes Studies:: surgical pathology Stand-Alone Forms: [facility], Smoking Cessation Medications and DC Order Prescriptions: New acetaminophen 325 mg Tablet 650 mg PO Q4H PRN (Reason: pain) Qty: 30 0RF Rx Instructions: OTC oxycodone 5 mg Tablet 5 mg PO Q4H PRN (Reason: moderate-severe pain) Qty: 10 0RF Continued famotidine 20 mg tablet 20 mg PO BID Qty: 60 11RF Rx Instructions: Unable to verify OTC meds at this date/time. flecainide 100 mg tablet 50 mg PO Q12 Qty: 90 1RF melatonin 5 mg capsule 5 mg PO HS PRN (Reason: Sleep) Rx Instructions: Unable to verify OTC meds at this date/time. hydroxyzine HCl 25 mg tablet 25 mg PO TID sertraline 100 mg tablet 200 mg PO DAILY Qty: 180 3RF cetirizine [Zyrtec] 10 mg Tablet 10 mg PO QAM Rx Instructions: Unable to verify OTC meds at this date/time. Held Eliquis 5 mg tablet 5 mg PO BID Qty: 60 5RF Hold Instructions: Resume on 05/21/24. Discharge Orders: Discharge Order (Routine); Ordered 05/19/24 Ordered By: Lorie Norman/Other Patient Handouts: Cholecystectomy, Medicine for Pain, Taking Opioid Medicine Admission Data Admit Date/Time: 05/18/24 11:30 Attending Provider: Lorie Nieto Admit Provider: Sami Sosa Primary Care Provider: Alfonzo Pérez Other Providers: Sami Sosa; Darryl Damian Other Interventions: Discharge Summary Assessment (RN) Last Done: 05/19/24 14:49 Hospital Stay Data Consultations 05/18/24 10:50 ED Decision to Admit Stat 05/18/24 11:30 Consult General Surgery Routine Procedures Performed Operation Date: 05/19/24 07:00 Actual Procedures p Laparoscopic Cholecystectomy(Not Applicable) - Darryl Damian DO Diagnostic Imagining Performed 05/18/24 07:27 CT abd pelvis IV con only Stat 05/18/24 07:54 CT angio chest PE protocol Stat Pending Results Patient Have Any Pending Studies at Discharge: Yes Discharge Instructions Given to Patient (Per Discharging Provider) You have surgical glue called dermabond on your surgical site incisions. You may shower with this on. This will tend to come off within a couple of weeks. Do not pick at it. You can resume your Eliquis on 05/21/24 Incidentally, you were found to have a nodule on your thyroid. Please follow up with your PCP regarding further evaluation of this. Total Time Total Time Spent Total Time Spent (In Minutes): 35 min Total Time Includes: Examination of the Patient, Discharge Planning, Medication Reconciliation and Communication With Other Providers (Surgeon) Coding Level of Care Code 54593 INP/OBS DISCH >30 MIN Diagnoses Chronic cholecystitis with calculus K80.10 Ogyqe-Ivbylhwhy-Hxcpb (WPW) syndrome I45.6 Tobacco use Z72.0 History of pulmonary embolism Z86.711 Thyroid nodule E04.1
[2024-05-19] MEDS: ACETAMINOPHEN 325 MG TAB PO PRN (14:34)
[2024-05-19 17:08] VITALS: BP 103/64; PULSE 86; TEMP 98.6; O2SAT 91
== END 2024-05-19 18:32 | disposition home or self-care (01) ==
LOC: 2W 05:42 → ED 05:42 → SUATTDRO 11:30 → 2W 14:59